=== PATIENT | male | born 1950 | race Caucasian/White ===

== ENCOUNTER 2019-05-21 10:44 | Emergency (ER) | payer MEDICARE, SELFPAY ==
--- NOTE | ~2019-05-21 | XR_ITS ---
EXAMINATION: XR humerus LT DATE: 05/21/2019 12:36 INDICATION: Left humerus pain. Fall. TECHNIQUE: 2 views of left humerus on 4 radiographs were obtained. COMPARISON: Left shoulder radiographs 03/29/2004 FINDINGS: Bone alignment is normal. No fracture. There is severe osteoarthritis of the acromioclavicu lar joint. Glenohumeral joint is not well profiled. There is an enthesophyte at medial humeral epicon dyle. IMPRESSION: 1. No fracture. 2. Severe osteoarthritis of acromioclavicular joint. Reviewed, dictated and finalized at location A. CRAB SHEDDER
--- NOTE | ~2019-05-21 | CT_ITS ---
EXAMINATION: CT brain wo con DATE: 05/21/2019 13:26 INDICATION: Syncope. Head injury. TECHNIQUE: Computed tomography (CT) of the head was performed without intravenous contrast. The mA wa s adjusted according to patient size. Iterative reconstruction technique was employed. The dose-lengt h product was 756.67 mGy-cm. COMPARISON: Head CT 11/30/2018 FINDINGS: There are scattered areas of low attenuation in the cerebral white matter. There is no intr acranial hemorrhage, acute infarction, or abnormal intracranial mass lesion. The ventricles are huber l in size. The orbits are normal. There is mild mucosal thickening in the ethmoid sinuses. The mastoi d air cells are normal. IMPRESSION: 1. Unchanged mild nonspecific cerebral white matter disease, which likely represents chronic small ve ssel ischemic disease. Reviewed, dictated and finalized at location A. H PASTOR IMPRESSION: 1. Unchanged mild nonspecific cerebral white matter disease, which likely repre sents chronic small vessel ischemic disease.
[2019-05-21 10:45] VITALS: BP 136/79; PULSE 61; RESP 16; TEMP 36.6; O2SAT 96
--- NOTE | 2019-05-21 12:10 | ED.GENADULT ---
HPI - General Adult General Chief complaint: Fall <GEORGE Weber Last Filed: 05/21/19 15:29> Stated complaint: ?syncope <GEORGE Weber Last Filed: 05/21/19 15:29> Time Seen by Provider: 05/21/19 12:09 <GEORGE Weber Last Filed: 05/21/19 15:29> Source: patient and family <GEORGE Weber Last Filed: 05/21/19 15:29> Mode of arrival: EMS <GEORGE Weber Last Filed: 05/21/19 15:29> Limitations: no limitations <GEORGE Weber Last Filed: 05/21/19 15:29> History of Present Illness HPI narrative: Patient is here after a fall at home. He was in his bathroom and is sure that his foot got stuck and he went down on his bottom. He did sustain a small abrasion to his left lower leg. He is complaining of left upper arm pain, and it is unsure if he hit his head. Patient is on blood thinners. He is alert and appropriate, not complaining of a headache at this time. He has frequent falls at home and walks with a walker. He complains of right knee pain, which is chronic and he wears a brace at all times. He states the pain is slightly more than usual. <GEORGE Weber Last Filed: 05/21/19 15:29> Onset (ago): hour(s) <GEORGE Weber Last Filed: 05/21/19 15:29> Radiation: extremity (left upper) <GEORGE Weber Last Filed: 05/21/19 15:29> Severity: mild <GEORGE Weber Filed: 05/21/19 15:29> Quality: aching <GEORGE Weber Last Filed: 05/21/19 15:29> Treatments prior to arrival: none <GEORGE Weber Last Filed: 05/21/19 15:29> Related Data Home medications: Home Medications Medication Instructions Recorded Confirmed cholecalciferol (vitamin D3) 2,000 2,000 unit PO DAILY 03/09/19 03/15/19 unit tablet nystatin 100,000 unit/gram topical 1 applic TOPICAL BID 03/09/19 03/15/19 powder tamsulosin 0.4 mg capsule 0.4 mg PO DAILY 03/09/19 03/15/19 warfarin 10 mg tablet 5 mg PO QMWF 03/09/19 allopurinol 05/21/19 donepezil mg 05/21/19 finasteride mg 05/21/19 flecainide 05/21/19 furosemide 05/21/19 metoprolol tartrate 05/21/19 ranitidine HCl 05/21/19 <Vicki Nixon PA-C - Last Filed: 05/21/19 15:29> Allergies/adverse reactions: Allergies Allergy/AdvReac Type Severity Reaction Status Date / Time ampicillin Allergy Unknown Hives Verified 05/21/19 11:22 iodine Allergy Unknown Hives Verified 05/21/19 11:22 Penicillins Allergy Unknown Hives Verified 05/21/19 11:22 Contrast Media Allergy Severe hives Uncoded 05/21/19 11:22 <Vicki Nixon PA-C - Last Filed: 05/21/19 15:29> Review of Systems Review of Systems: All systems reviewed & are unremarkable except as noted in HPI and below <Vicki Nixon PA-C - Last Filed: 05/21/19 15:29> [facility] Past Medical History Medical History: Medical History Afib Anemia Anxiety Arthritis Bilateral ankle fractures BPH (benign prostatic hyperplasia) Dementia Depression DVT (deep venous thrombosis) Gall bladder disease GERD (gastroesophageal reflux disease) Gout HTN (hypertension) IBS (irritable bowel syndrome) Kidney stones Osteomyelitis Parkinsons disease Pericarditis Peripheral neuropathy Pneumonia Pulmonary embolism PVD (peripheral vascular disease) Sleep apnea <Vicki Nixon PA-C - Last Filed: 05/21/19 15:29> Surgical History Surgical History: Surgical History H/O cardiac catheterization H/O umbilical hernia repair History of arthroscopic knee surgery History of ERCP History of left knee replacement History of nephrectomy, left Hx of appendectomy Hx of cholecystectomy <Vicki Nixon PA-C - Last Filed: 05/21/19 15:29> Family History Family History: Family History Mother Deceas
[2019-05-21 15:19] VITALS: BP 160/98; PULSE 67; O2SAT 97
== END 2019-05-21 16:28 | disposition home or self-care (01) ==
PROVIDERS: Emergency Provider Emergency Medicine; PCP Internal Medicine
DX: M79.622 Pain in left upper arm (principal); S80.812A Abrasion, left lower leg, initial encounter; I48.91 Unspecified atrial fibrillation; Z79.01 Long term (current) use of anticoagulants; N40.0 Benign prostatic hyperplasia without lower urinary tract symptoms; F03.90 Unspecified dementia, unspecified severity, without behavioral disturbance, psychotic disturbance, mood disturbance, and anxiety; Z86.718 Personal history of other venous thrombosis and embolism; K21.9 Gastro-esophageal reflux disease without esophagitis; M10.9 Gout, unspecified; I10 Essential (primary) hypertension; K58.9 Irritable bowel syndrome, unspecified; Z87.442 Personal history of urinary calculi; G20 Parkinson's disease; G62.9 Polyneuropathy, unspecified; Z86.711 Personal history of pulmonary embolism; G47.30 Sleep apnea, unspecified; I73.9 Peripheral vascular disease, unspecified; Z96.652 Presence of left artificial knee joint; Z90.5 Acquired absence of kidney; M19.012 Primary osteoarthritis, left shoulder; R90.82 White matter disease, unspecified
CPT/HCPCS: 70450; 73060; 99284

== ENCOUNTER 2019-09-28 10:01 | Inpatient (IN) | payer MEDICARE, SELFPAY ==
[2019-09-28] VITALS (24 sets, daily range): BP systolic 106–148; BP diastolic 69–81; PULSE 57–84; RESP 16–30; TEMP 36.2–36.7; O2SAT 90–94; BMI 42.3
--- NOTE | ~2019-09-28 | XR_ITS ---
XR chest 2V 09/28/2019 10:34 Indication: Foot ulcer Procedure: 2 views of the chest Comparison: Comparison to multiple prior studies sequentially, with oldest reviewed study dated 10/14. Findings: Elevated right diaphragm. There is right middle lobe atelectasis. No focal pneumonia, edema , pleural effusion or pneumothorax. Cardiomegaly. Impression: 1: Right middle lobe atelectasis. 2: Cardiomegaly. Reviewed, dictated and finalized at location A. Impression: 1: Right middle lobe atelectasis. 2: Cardiomegaly.
--- NOTE | ~2019-09-28 | US_ITS ---
EXAMINATION:US venous doppler LE BI INDICATION:Right calf swelling and redness. History of DVT. TECHNIQUE: Multiple grayscale, color flow and Doppler images of the lower extremity deep venous syste ms were obtained and reviewed. COMPARISON:No prior studies for comparison. FINDINGS: The common femoral, superficial femoral and popliteal veins demonstrate normal respiratory variation, augmentation and compressibility. Color flow is also seen within the posterior tibial, pe roneal, greater saphenous and profunda veins. The left gastrocnemius vein is not visualized. IMPRESSION: 1: No lower extremity deep venous thrombosis. Reviewed, dictated and finalized at location A.
--- NOTE | 2019-09-28 10:12 | ECG_ITS ---
Measurements Intervals [place] Rate: 59 P: -57 CO: 171 QRS: 51 QRSD: 116 T: 51 QT: 466 QTc: 464 Interpretive Statements SINUS BRADYCARDIA INTRAVENTRICULAR CONDUCTION DELAY CONSDIER HIGH LATERAL INFARCT, AGE INDETERMINATE BORDERLINE T WAVE ABNORMALITY- ANTERIOR LEADS BASELINE ARTIFACT- I, III, AVR, AVL ABNORMAL ECG Electronically Signed On 09-28-2019 11:14:05 CDT by Byron Bhatia D.O.
[2019-09-28 10:35] LABS: Basophils Percent Auto 0.6 % (0.2-1.2); Eosinophils Absolute Auto 0.1 K/mm3 (0-0.3); Eosinophils Percent Auto 1.7 % (0-4.4); Hematocrit 44.6 % (42.0-52.0); Hemoglobin 14.1 g/dL (14.0-18.0); Immature Granulocyte Absolute 0.02 K/mm3 (0.00-0.031); Immature Granulocyte Percent A 0.3 % (0-0.5); Lymphocytes Absolute Auto 0.76 K/mm3 (0.9-3.2); Lymphocytes Percent Auto 10.6 % (18.3-44.2); Mean Corpuscular HGB Conc 31.6 g/dl (32-36); Mean Corpuscular Volume 88.5 fl (80-100); Mean Platelet Volume 9.5 fl (7.4-10.4); Monocytes Absolute Auto 0.4 K/mm3 (0.1-0.6); Neutrophils Absolute Auto 5.8 K/mm3 (1.3-6.7); Neutrophils Percent Auto 80.8 % (45.5-73.1); Platelet Count Result 226 k/mm3 (150-375); Red Blood Count 5.04 M/mm3 (4.6-6.20); Red Cell Distribution Width 14.6 % (11.5-14.5); White Blood Count 7.2 K/mm3 (4.5-10.0)
[2019-09-28 10:47] LABS: Lactic Acid Reflex 1.6 mmol/L (0.7-2.1)
[2019-09-28 10:49] LABS: Alanine Aminotransferase 8 U/L (4-50); Albumin Level 4.2 g/dL (3.5-5.1); Alkaline Phosphatase 150 U/L (38-126); Aspartate Amino Transferase 19 U/L (17-59); Bilirubin,Total 0.7 mg/dL (0.2-1.3); Blood Urea Nitrogen 17 mg/dL (9-20); Carbon Dioxide 31 mmol/L (22-30); Chloride 97 mmol/L (98-107); Estimated CRCL calculation 134 ml/min; Estimated Glomerular Filt Rate > 60; Glucose 137 mg/dL (75-110); Potassium 3.9 mmol/L (3.4-5.0); Sodium 135 mmol/L (137-145)
[2019-09-28 10:50] LABS: INR 3.5; Prothrombin Time 34.8 Seconds (11.1-14.7)
[2019-09-28 10:52] LABS: Partial Thromboplastin Time 58.8 SECONDS (22.3-36.8)
--- NOTE | 2019-09-28 11:24 | PC.NURSE ---
Pt states attempted to void but unable. Refuses catherization.
--- NOTE | 2019-09-28 11:26 | ED.GENADULT ---
HPI - General Adult General Chief complaint: Wound/Laceration Stated complaint: SORE ON ANKLE Time Seen by Provider: 09/28/19 11:16 History of Present Illness HPI narrative: Patient presents via EMS with his for a sore on his right lower leg. He found it this morning. It is bleeding. He has no pain due to his neuropathy. He is overweight and has not been out of his chair walking since May. He urinates in the urinal. He wears a pull-apart diaper that his changes for BMs. He is on Coumadin for A. fib. He also has sacral bedsores, and has not been to the wound clinic due to COVID, so that they are as bad as ever. They do not bother him. His appetite is good, bowels move today. His said he has some memory problems. Related Data Home Medications Medication Instructions Recorded Confirmed cholecalciferol (vitamin D3) 50 1,000 unit PO DAILY 03/09/19 03/15/19 mcg (2,000 unit) tablet tamsulosin 0.4 mg capsule 0.4 mg PO DAILY 03/09/19 03/15/19 warfarin 10 mg tablet 10 mg PO 03/09/19 flecainide 150 mg BID 05/21/19 acetaminophen 500 mg PO Q6H PRN 09/28/19 09/28/19 lisinopril 10 mg PO DAILY 09/28/19 metoprolol tartrate 12.5 PO TID 09/28/19 Allergies Allergy/AdvReac Type Severity Reaction Status Date / Time ampicillin Allergy Unknown Hives Verified 09/28/19 11:25 iodine Allergy Unknown Hives Verified 09/28/19 11:25 Penicillins Allergy Unknown Hives Verified 09/28/19 11:25 Contrast Media Allergy Severe hives Uncoded 09/28/19 11:25 Review of Systems Review of Systems: Narrative: CONSTITUTIONAL: Denies fever, chills, or sweats. EYES: Denies visual changes, redness, or discharge. ENT: Denies rhinorrhea, congestion, sore throat, or otalgia. CARDIOVASCULAR: Denies chest pain, palpitations, or edema. RESPIRATORY: Denies cough or dyspnea. GASTROINTESTINAL: Denies abdominal pain, nausea, vomiting, or diarrhea. GENITOURINARY: Denies dysuria or hematuria. SKIN: Denies rash or itching. MUSCULOSKELETAL: Denies back pain, joint pain, or myalgia. NEUROLOGIC: Denies headache, numbness, or weakness. PSYCHIATRIC: Denies anxiety or depression. [facility] Past Medical History Medical History Afib Anemia Anxiety Arthritis Bilateral ankle fractures BPH (benign prostatic hyperplasia) Dementia Depression DVT (deep venous thrombosis) Gall bladder disease GERD (gastroesophageal reflux disease) Gout HTN (hypertension) IBS (irritable bowel syndrome) Kidney stones Osteomyelitis Parkinsons disease Pericarditis Peripheral neuropathy Pneumonia Pulmonary embolism PVD (peripheral vascular disease) Sleep apnea Surgical History Surgical History H/O cardiac catheterization H/O umbilical hernia repair History of arthroscopic knee surgery History of ERCP History of left knee replacement History of nephrectomy, left Hx of appendectomy Hx of cholecystectomy Family History Family History Mother Hypertension, Onset Age: 79 Family history of diabetes mellitus in first degree relative, Onset Age: 79 Family history of arthritis, Onset Age: 79 Family history of congestive heart failure, Onset Age: 79 Sibling Hypertension Carcinoma of colon Father Hypertension, Onset Age: 80 Family history of Parkinson's disease Family history of Alzheimer's disease, Onset Age: 80 Family history of diabetes mellitus in first degree relative, Onset Age: 80 Carcinoma of colon Social History Social History Smoking status: Never smoker Alcohol intake: never Substance use: never Gender identity (if verbalized by the patient): Male Exam Narrative: Exam Narrative: GENERAL: Well-appearing, well-nourished, and in no acute distress. Unkempt hair, morbid obesity, thickened skin on his very edematous leg
--- NOTE | 2019-09-28 12:19 | PM.CNGS ---
Assessment and Plan Assessment and plan (1) Sacral decubitus ulcer: Code(s): L89.159 - Pressure ulcer of sacral region, unspecified stage Status: Acute Assessment and Plan: will evaluate further c wound care team, further recs to follow (2) Ulcer of right calf: Code(s): L97.219 - Non-pressure chronic ulcer of right calf with unspecified severity Status: Acute Assessment and Plan: seems to be venous stasis ulcer, enzymatic debridement for now, likely will need compression, poss unna boot, will get wound care consult (3) Chronic venous stasis dermatitis of both lower extremities: Code(s): I87.2 - Venous insufficiency (chronic) (peripheral) Status: Acute Assessment and Plan: needs compression History of Present Illness Consult details Consult date: 09/28/19 Reason for consult: wound care Narrative: Pt is a 69 y/o M c multiple med issues including severe obesity and neuropathy leading him to be largely immobile. Pt reports he has been getting around in a wheelchair pretty much exclusively since May. Pt has known sacral ulcers that he was regularly being treated for at [facility]. Pt reports because of pandemic he has not followed up on his regular appointments. Pt reports his has been taking care of his wounds and they do not seem to be worsening. Pt here for new ulcer on R calf over last few wks, pt reports some mild bleeding from area. Pt denies any f/c, reports good appetite. Review of Systems Constitutional: Constitutional: Denies chills, Reports fatigue, Reports lethargy and Reports weakness Eyes: Eyes: Reports no additional eye complaints ENT: Reports Normal hearing present Cardiovascular: Cardiovascular: Denies chest pain and Denies palpitations Respiratory: Respiratory: Denies cough, Denies dyspnea and Reports dyspnea on exertion Gastrointestinal: Gastrointestinal: Denies abdominal pain, Denies bloating, Denies constipation, Denies diarrhea, Denies nausea and Denies vomiting Genitourinary: Genitourinary: Denies dysuria Musculoskeletal: Musculoskeletal: Reports joint swelling Integumentary/Breasts: Skin/Breast: Reports wounds Neurologic: Denies confusion, Denies headache(s) and Reports numbness Psychiatric: Psychiatric: Reports no additional psychiatric complaints [facility] Past Medical History Medical History Afib Anemia Anxiety Arthritis Bilateral ankle fractures BPH (benign prostatic hyperplasia) Dementia Depression DVT (deep venous thrombosis) Gall bladder disease GERD (gastroesophageal reflux disease) Gout HTN (hypertension) IBS (irritable bowel syndrome) Kidney stones Osteomyelitis Parkinsons disease Pericarditis Peripheral neuropathy Pneumonia Pulmonary embolism PVD (peripheral vascular disease) Sleep apnea Surgical History Surgical History H/O cardiac catheterization H/O umbilical hernia repair History of arthroscopic knee surgery History of ERCP History of left knee replacement History of nephrectomy, left Hx of appendectomy Hx of cholecystectomy Family History Family History Mother Hypertension, Onset Age: 79 Family history of diabetes mellitus in first degree relative, Onset Age: 79 Family history of arthritis, Onset Age: 79 Family history of congestive heart failure, Onset Age: 79 Sibling Hypertension Carcinoma of colon Father Hypertension, Onset Age: 80 Family history of Parkinson's disease Family history of Alzheimer's disease, Onset Age: 80 Family history of diabetes mellitus in first degree relative, Onset Age: 80 Carcinoma of colon Social History Social History Smoking status: Never smoker Alcohol intake: never Substance use: never Gender identity (if ve
[2019-09-28 14:51] LABS: Add Urine Microscopic? YES; Appearance Urine Cloudy (Clear); Bacteria Urine 4+ /hpf; Bilirubin Urine Negative (Negative); Blood Urine 1+ (Negative); Color Urine Yellow (Yellow); Glucose Urine UA Negative (Negative); Ketones Urine Negative (Negative); Leukocyte Esterase Ur 3+ LEU/UL (Negative); Mucus Urine Few /lpf; Nitrate Urine Positive (Negative); Protein Urine Negative (Negative); RBC Urine 21-50 /hpf (0-2); Specific Grav Ur 1.015 (1.001-1.035); Squamous Epithelial Cell Urine Rare /hpf (Few); Urobilinogen Urine Negative mg/dL (<2.0); WBC Clumps Urine Present /HPF; WBC Urine >75 /hpf
--- NOTE | 2019-09-28 15:00 | PC.NURSE ---
Assumed care of pt, pt is alert and upright on stretcher, pt on tele monitor, discussed POC.
--- NOTE | 2019-09-28 15:50 | ADMGEN ---
This patient, Jorge Zamora, was admitted to Medical Room 246-01. Patient/family oriented to hospital policies and general routines including ID bracelet, bed and alarms, visiting hours, pain management, procedures, bathroom and other care routines, personal items, smoking policy, room service/diet, and visiting hours. Valuables list has been completed. Information on how to activate the Rapid Response Team has been discussed. Patient/Family are encouraged to report perceived risks to care and to ask questions if they do not understand what they are told or what they should do.
--- NOTE | 2019-09-28 18:28 | PM.IMHP ---
H&P: HPI History of Present Illness Chief complaint: morbid obesity/decubitus immobile Narrative: Jorge Zamora is a 69 year old male who has chronic venous stasis. He has been to the wound clinic here before as well as on [facility]. The patient has had a sore on his right lower leg on the calf side. His found at this morning. The patient also has decubitus ulcers on his sacral area. The patient essentially is in the recliner at all times and wears a depends. The patient will use a urinal but will have a bowel movement in his depends. The patient has not been back to wound clinic since they COVID epidemic. The patient has a swollen right leg that is very painful to move. His white count is normal. And surgery has been consulted. Chest x-ray was read as right middle lobe atelectasis. And cardiomegaly. Patient is in atrial fibrillation. His INR was also . So his Coumadin is being held. Patient was found to have UTI. Date of service 09/28/2019 Review of Systems Review of Systems: All systems reviewed & are unremarkable except as noted in HPI and below Constitutional: Constitutional: Reports as per HPI and Reports no additional constitutional complaints Eyes: Eyes: Reports as per HPI and Reports no additional eye complaints ENT: Reports system reviewed and no additional complaints, except as documented and Reports Normal hearing present Cardiovascular: Cardiovascular: Reports no additional cardiovascular complaints Respiratory: Respiratory: Reports no additional respiratory complaints and Reports no additional respiratory complaints Gastrointestinal: Gastrointestinal: Reports as per HPI and Reports no additional gastrointestinal complaints Musculoskeletal: Musculoskeletal: Reports no additional musculoskeletal complaints Integumentary/Breasts: Skin/Breast: Reports system reviewed and no additional complaints, except as docu and Reports as per HPI Neurologic: Reports system reviewed and no additional complaints, except as documented, Reports as per HPI and Reports Normal hearing present Psychiatric: Psychiatric: Reports no additional psychiatric complaints and Reports as per HPI Endocrine: Endocrine: Reports no additional endocrine complaints Hematologic/Lymphatic: Hematologic/Lymphatic: Reports no additional hematologic/lymphatic complaints Allergic/Immunologic: Allergic/Immunologic: Reports no additional allergic/immunologic complaints [facility] Past Medical History Medical History (Updated 09/28/19 @ 19:02 by Chantelle Posey NP) Afib Anemia Anxiety Arthritis Bilateral ankle fractures Borderline diabetes BPH (benign prostatic hyperplasia) Dementia Depression DVT (deep venous thrombosis) Gall bladder disease GERD (gastroesophageal reflux disease) Gout History of pericarditis HTN (hypertension) IBS (irritable bowel syndrome) Kidney stones Obesity BMI 42 Osteomyelitis Parkinsons disease Pericarditis Peripheral neuropathy Pneumonia Pulmonary embolism PVD (peripheral vascular disease) Sleep apnea Surgical History Surgical History (Updated 09/28/19 @ 18:46 by Chantelle Posey NP) H/O cardiac catheterization H/O inguinal hernia repair H/O umbilical hernia repair History of arthroscopic knee surgery History of ERCP History of left knee replacement History of nephrectomy, left Hx of appendectomy Hx of cholecystectomy Family History Family History Mother Hypertension, Onset Age: 79 Family history of diabetes mellitus in first degree relative, Onset Age: 79 Family history of arthritis, Onset Age: 79 Family history of congestive heart failure, Onset Age: 79 Sibling Hypertension Carcinoma of colon Father Hypertension, Onset Age: 80 Family history of Parkinson's disease Family history of Alzheimer's disease, Onset Age: 80 Family history of diabetes mellitus in first degree relative, Onset Age: 80 Carcinoma of
[2019-09-28] MEDS: TAMSULOSIN HCL 0.4 MG CAPSULE PO (19:15)
[2019-09-28] MEDS: METOPROLOL TARTRATE 12.5 MG TABLET PO (19:15)
[2019-09-28] MEDS: lisinopriL 10 MG TABLET PO (19:15)
[2019-09-28 20:14] LABS: INR 3.8
[2019-09-28] MEDS: FLECAINIDE ACETATE 50 MG TABLET PO (20:40)
[2019-09-28] MEDS: FLECAINIDE ACETATE 100 MG TABLET PO (20:42)
[2019-09-28] MEDS: ACETAMINOPHEN 325 MG TABLET 650 MG PO (20:46)
[2019-09-29] VITALS (7 sets, daily range): BP systolic 112–120; BP diastolic 65–70; PULSE 62–66; RESP 18–20; TEMP 36.4–37.3; O2SAT 92–98; BMI 10.0
[2019-09-29 05:59] LABS: Alanine Aminotransferase 7 U/L (4-50); Albumin Level 3.7 g/dL (3.5-5.1); Alkaline Phosphatase 118 U/L (38-126); Aspartate Amino Transferase 19 U/L (17-59); Bilirubin,Total 0.7 mg/dL (0.2-1.3); Blood Urea Nitrogen 19 mg/dL (9-20); CRP 3.8 mg/dL (<1.0); Calcium 8.5 mg/dL (8.4-10.2); Carbon Dioxide 29 mmol/L (22-30); Chloride 97 mmol/L (98-107); Estimated CRCL calculation 135 ml/min; Estimated Glomerular Filt Rate > 60; Glucose 122 mg/dL (75-110); Potassium 3.8 mmol/L (3.4-5.0); Sodium 133 mmol/L (137-145)
[2019-09-29] MEDS: ACETAMINOPHEN 325 MG TABLET 650 MG PO ×2 (06:28→23:17)
[2019-09-29] MEDS: METOPROLOL TARTRATE 25 MG TABLET PO (08:02)
[2019-09-29] MEDS: FUROSEMIDE 40 MG TABLET PO (08:02)
[2019-09-29] MEDS: CHOLECALCIFEROL 1,000 UNIT TABLET 1000 UNITS PO (08:02)
[2019-09-29] MEDS: allopurinoL 300 MG TABLET PO (08:02)
[2019-09-29] MEDS: FLECAINIDE ACETATE 100 MG TABLET PO ×2 (10:02→22:11)
[2019-09-29] MEDS: FLECAINIDE ACETATE 50 MG TABLET PO ×2 (10:02→22:11)
[2019-09-29] MEDS: TOLNAFTATE 1% POWDER 45 GM BTL 1 APPLIC TOPICAL ×2 (10:15→22:14)
[2019-09-29] MEDS: SILVERGEL (ELTA) 45 ML 1 APPLIC TOPICAL (10:15)
--- NOTE | 2019-09-29 11:06 | PM.PNGS ---
Progress Note: A&P Assessment and Plan (1) Decubitus skin ulcer: Qualifiers: Pressure injury location: unspecified location Pressure injury stage: unspecified pressure injury stage Qualified Code(s): L89.90 - Pressure ulcer of unspecified site, unspecified stage Code(s): L89.90 - Pressure ulcer of unspecified site, unspecified stage Status: Acute Assessment and Plan: cont pressure relieving techniques, wound care as necessary, no surgical intervention at this point required (2) Ulcer of right calf: Code(s): L97.219 - Non-pressure chronic ulcer of right calf with unspecified severity Status: Acute Assessment and Plan: likely venous stasis, cont compression/elevation, local wound care, no surgical intervention required at this point (3) Chronic venous stasis dermatitis of both lower extremities: Code(s): I87.2 - Venous insufficiency (chronic) (peripheral) Status: Acute Assessment and Plan: see above (4) Body mass index (BMI) of 50-59.9 in adult: Onset Date: 07/02/15 Code(s): Z68.43 - Body mass index (BMI) 50.0-59.9, adult Status: Acute Assessment and Plan: pt severely debilitated, may benefit from ECF at dc Subjective Subjective Date/Time Seen: 09/29/19 11:06 Pt denies any complaints today. Pt denies any f/c, reports no pain. Review of Systems Constitutional: Constitutional: Denies chills, Reports fatigue, Reports lethargy and Reports weakness Cardiovascular: Cardiovascular: Denies chest pain Respiratory: Respiratory: Denies dyspnea Gastrointestinal: Gastrointestinal: Denies abdominal pain, Denies constipation, Denies diarrhea, Denies nausea and Denies vomiting Musculoskeletal: Musculoskeletal: Reports joint swelling Integumentary/Breasts: Skin/Breast: Reports wounds Exam Const: General: no acute distress Resp: Effort & Inspection: normal respiratory effort Auscultation: diminished lung sounds Cardio: Rate: regular rate Rhythm: regular rhythm GI: Other: SNTND Skin: Other: R calf venous stasis ulcer - no s/s active infection, minimal serous drainage stage 1 sacral ulcer - no s/s active infection, no drainage Objective Data Vital Signs Vital Signs: Vital Signs - 24 hr 09/28/19 11:16 09/28/19 11:31 09/28/19 11:45 Temperature Pulse Rate 60 61 61 Respiratory Rate 21 H 22 H 23 H Blood Pressure 123/77 Pulse Oximetry 91 92 09/28/19 12:01 09/28/19 12:15 09/28/19 12:46 Temperature Pulse Rate 62 57 L 59 L Respiratory Rate 16 19 21 H Blood Pressure 121/69 Pulse Oximetry 93 94 93 09/28/19 13:03 09/28/19 13:15 09/28/19 13:57 Temperature Pulse Rate 57 L 57 L 57 L Respiratory Rate 21 H 19 21 H Blood Pressure Pulse Oximetry 94 92 09/28/19 14:00 09/28/19 14:01 09/28/19 14:15 Temperature Pulse Rate 58 L 59 L 58 L Respiratory Rate 24 H 30 H 21 H Blood Pressure 132/81 Pulse Oximetry 09/28/19 14:30 09/28/19 14:45 09/28/19 15:35 Temperature Pulse Rate 59 L 59 L 57 L Respiratory Rate 25 H 19 19 Blood Pressure 125/74 Pulse Oximetry 93 93 09/28/19 15:55 09/28/19 19:15 09/28/19 20:40 Temperature 36.2 C L Pulse Rate 70 70 84 Respiratory Rate 18 Blood Pressure 148/77 H Pulse Oximetry 92 09/28/19 20:42 09/28/19 22:00 09/29/19 06:00 Temperature 36.7 C 36.5 C Pulse Rate 84 73 66 Respiratory Rate 18 20 Blood Pressure 134/76 112/70 Pulse Oximetry 94 92 09/29/19 08:02 09/29/19 10:02 Temperature Pulse Rate 66 66 Respiratory Rate Blood Pressure Pulse Oximetry Intake/Output Intake/Output: Intake & Output 09/26/19 09/27/19 09/28/19 09/29/19 23:59 23:59 23:59 23:59 Intake Total 650 1240 Output Total 250 150 Balance 400 1090 Meds/Results Medications: Active Medications Generic Name Dose Route Start Last Admin Trade Name Sidq PRN Reason Stop Dose Admin Acetaminophen 650 mg 09/28/19 14:40 09/29/19 06:28
[2019-09-29 17:19] LABS: INR 3.2; Prothrombin Time 32.2 Seconds (11.1-14.7)
--- NOTE | 2019-09-29 17:19 | PM.IMPN ---
Progress Note: A&P Assessment and Plan (1) Ulcer of right calf: Code(s): L97.219 - Non-pressure chronic ulcer of right calf with unspecified severity Status: Acute Assessment and Plan: Patient has approximately 2.5 cm round venous stasis ulcer with regular borders with scant serous drainage. There is no pus, malodor, erythema, or streaking. Patient is afebrile and without leukocytosis. CRP is 3.8. General surgery has been consulted and does not recommend surgical intervention at this time. Consult is appreciated. Wound care has been consulted and recommends silver gel and Mepilex dressing. Consult is appreciated. Discontinue IV vancomycin as the area does not appear to be actively infected Blood cultures are pending (2) UTI (urinary tract infection): Code(s): N39.0 - Urinary tract infection, site not specified Status: Acute Assessment and Plan: Initial urine culture reveals Gram-negative bacilli. Patient endorses dysuria. Begin Zosyn for empiric coverage given patients penicillin allergy. Await results of final culture and sensitivity report. (3) AF (paroxysmal atrial fibrillation): Code(s): I48.0 - Paroxysmal atrial fibrillation Status: Acute Assessment and Plan: Rate is well controlled at this time. INR is elevated at 3.8. Patient denies active bleeding. Continue flecainide and metoprolol Hold Coumadin given supratherapeutic INR. Resume when clinically appropriate. Repeat PT/INR daily. INR will be monitored closely noting risk for increased anticoagulant effect with antibiotic therapy. (4) HTN (hypertension): Code(s): I10 - Essential (primary) hypertension Status: Chronic Assessment and Plan: Blood pressures were reviewed and are stable. BP is 112/70 today. Continue metoprolol, lisinopril, and Lasix (5) Maceration of skin: Code(s): L98.8 - Other specified disorders of the skin and subcutaneous tissue Status: Acute Assessment and Plan: Patient has maceration to buttocks and skin folds. Continue antifungal powder per wound care recommendations. Subjective Date/time seen: 09/29/19 17:19 Interval history: Date of service: 09/29/2019 He reports he is feeling well today. He complains of pain in his legs which is chronic in nature. He also has knee pain. He also has a bit of abdominal discomfort following eating. He endorsed dysuria today but denied hematuria, urgency, or frequency. He reports a sacral wound that causes discomfort for him when lying down. He denies fever, chills, nausea, vomiting, dizziness, lightheadedness, weakness, shortness of breath, cough, chest pain, palpitations, bleeding, or bruising. He is eating well. Review of Systems Review of Systems: Narrative: A 12 point review of systems was reviewed with pertinent positives and negatives as per HPI. Exam Narrative: Exam Narrative: Mr. Zamora is examined alone today. He is a morbidly obese, chronically ill-appearing 69-year-old male who is lying supine in bed. He appears comfortable and is in no acute respiratory distress. HR 66, BP 112/70, RR 20, T 97.7?, 92% on room air Neuro: awake, alert and oriented x4, speech clear, no focal neuro deficits noted HEENMT: normocephalic, atraumatic, EOMI, sclerae anicteric, moist oral mucosa, tongue midline Neck: supple, no lymphadenopathy Respiratory: clear to auscultation bilaterally, normal respiratory effort without accessory muscle use Cardio: regular rate, regular rhythm, normal S1 and S2 Abdomen: normal to inspection, obese, normoactive bowel sounds, soft, nontender, no rigidity or guarding Extremities: BLE with 3+ pitting edema R>L, chronic brown discoloration, tenderness to to palpation, dorsal pedis pulses palpable bilaterally Skin: Maceration in pannus folds, approximately 2.5 cm round venous stasis ulcer with regular border on posterolateral right calf with scant s
[2019-09-29] MEDS: lisinopriL 10 MG TABLET PO (17:56)
[2019-09-29] MEDS: METOPROLOL TARTRATE 12.5 MG TABLET PO (17:56)
[2019-09-29] MEDS: TAMSULOSIN HCL 0.4 MG CAPSULE PO (17:56)
[2019-09-29] MEDS: SACCHAROMYCES BOULARDII 250 MG CAPSULE PO (22:12)
[2019-09-30 06:00] VITALS: BP 116/65; PULSE 65; RESP 16; TEMP 36.8; O2SAT 95
[2019-09-30 06:05] LABS: Basophils Percent Auto 0.4 % (0.2-1.2); Eosinophils Absolute Auto 0.2 K/mm3 (0-0.3); Eosinophils Percent Auto 4.2 % (0-4.4); Hematocrit 38.5 % (42.0-52.0); Hemoglobin 12.4 g/dL (14.0-18.0); Immature Granulocyte Absolute 0.02 K/mm3 (0.00-0.031); Immature Granulocyte Percent A 0.4 % (0-0.5); Lymphocytes Absolute Auto 0.91 K/mm3 (0.9-3.2); Mean Corpuscular HGB Conc 32.2 g/dl (32-36); Mean Corpuscular Volume 86.9 fl (80-100); Mean Platelet Volume 9.3 fl (7.4-10.4); Monocytes Absolute Auto 0.5 K/mm3 (0.1-0.6); Monocytes Percent Auto 8.1 % (2.6-8.5); Neutrophils Absolute Auto 4.1 K/mm3 (1.3-6.7); Neutrophils Percent Auto 70.9 % (45.5-73.1); Platelet Count Result 195 k/mm3 (150-375); Red Blood Count 4.43 M/mm3 (4.6-6.20); Red Cell Distribution Width 14.5 % (11.5-14.5); White Blood Count 5.7 K/mm3 (4.5-10.0)
[2019-09-30 06:18] LABS: Alanine Aminotransferase 7 U/L (4-50); Albumin Level 3.6 g/dL (3.5-5.1); Alkaline Phosphatase 116 U/L (38-126); Aspartate Amino Transferase 17 U/L (17-59); Bilirubin,Total 0.7 mg/dL (0.2-1.3); Blood Urea Nitrogen 19 mg/dL (9-20); Calcium 8.7 mg/dL (8.4-10.2); Carbon Dioxide 27 mmol/L (22-30); Chloride 98 mmol/L (98-107); Estimated CRCL calculation 121 ml/min; Estimated Glomerular Filt Rate > 60; Glucose 129 mg/dL (75-110); Potassium 3.4 mmol/L (3.4-5.0); Sodium 133 mmol/L (137-145)
[2019-09-30 06:32] LABS: INR 2.6; Prothrombin Time 27.2 Seconds (11.1-14.7)
[2019-09-30 06:46] LABS: Vancomycin Trough 8.2 ug/mL (10.0-20.0)
[2019-09-30 08:00] VITALS: PULSE 65; RESP 16; O2SAT 95
--- NOTE | 2019-09-30 08:45 | PM.PNGS ---
Progress Note: A&P Assessment and Plan (1) Ulcer of right calf: Code(s): L97.219 - Non-pressure chronic ulcer of right calf with unspecified severity Status: Acute Assessment and Plan: cont local wound care, no acute surgical intervention required (2) Sacral decubitus ulcer: Code(s): L89.159 - Pressure ulcer of sacral region, unspecified stage Status: Acute Assessment and Plan: cont local wound care, no acute surgical intervention required (3) Venous stasis: Code(s): I87.8 - Other specified disorders of veins Status: Acute Assessment and Plan: compression/elevation (4) Obesity: Code(s): E66.9 - Obesity, unspecified Status: Acute Assessment and Plan: debiliated, will need extensive dietary and PT/OT, would poss benefit from ECF placement Subjective Subjective Date/Time Seen: 09/30/19 08:45 feels ok, no c/o Review of Systems Constitutional: Constitutional: Denies chills, Reports fatigue, Reports lethargy and Reports weakness Cardiovascular: Cardiovascular: Denies chest pain and Reports leg edema Respiratory: Respiratory: Denies dyspnea Gastrointestinal: Gastrointestinal: Denies abdominal pain, Denies nausea and Denies vomiting Exam Const: General: no acute distress Resp: Auscultation: diminished lung sounds Cardio: Rate: regular rate Rhythm: regular rhythm GI: Other: SNTND Skin: Wounds: wounds noted Other: RLE wound drsg C/D/I, sacral wound drsg C/D/I Objective Data Vital Signs Vital Signs: Vital Signs - 24 hr 09/29/19 10:02 09/29/19 14:00 09/29/19 17:56 Temperature 37.3 C Pulse Rate 66 62 62 Respiratory Rate 18 Blood Pressure 120/66 Pulse Oximetry 98 09/29/19 22:00 09/29/19 22:11 09/30/19 06:00 Temperature 36.4 C 36.8 C Pulse Rate 66 66 65 Respiratory Rate 18 16 Blood Pressure 112/65 116/65 Pulse Oximetry 96 95 Intake/Output Intake/Output: Intake & Output 09/27/19 09/28/19 09/29/19 09/30/19 23:59 23:59 23:59 23:59 Intake Total 650 2470 500 Output Total 250 425 700 Balance 400 2045 -200 Meds/Results Medications: Active Medications Generic Name Dose Route Start Last Admin Trade Name Freq PRN Reason Stop Dose Admin Acetaminophen 650 mg 09/28/19 14:40 09/29/19 23:17 Tylenol Tablet PO 650 mg Q4H PRN Administration Mild Pain (1-3) or Fever Allopurinol 300 mg 09/29/19 09:00 09/29/19 08:02 Zyloprim PO 300 mg DAILY JAGUAR Administration Flecainide Acetate 100 mg 09/28/19 21:00 09/29/19 22:11 Tambocor PO 100 mg Q12HR JAGUAR Administration Flecainide Acetate 50 mg 09/28/19 21:00 09/29/19 22:11 Tambocor PO 50 mg Q12HR JAGUAR Administration Furosemide 40 mg 09/29/19 09:00 09/29/19 08:02 Lasix Tablet PO 40 mg DAILY JAGUAR Administration Ceftriaxone Sodium/Dextrose 1 gm in 50 mls @ 100 mls/hr 09/29/19 18:00 09/29/19 18:52 Rocephin 1 Gm/D5w 50 Ml IVPB Infused Q24H JAGUAR Infusion Lisinopril 10 mg 09/28/19 18:00 09/29/19 17:56 Prinivil PO 10 mg QPM JAGUAR Administration Metoprolol Tartrate 25 mg 09/29/19 09:00 09/29/19 08:02 Lopressor PO 25 mg QAM JAGUAR Administration Metoprolol Tartrate 12.5 mg 09/28/19 18:00 09/29/19 17:56 Lopressor PO 12.5 mg QPM JAGUAR Administration Miconazole Nitrate 1 applic 09/29/19 09:00 09/29/19 22:[address] TOPICAL 1 applic Q12HR JAGUAR Administration Ondansetron HCl 4 mg 09/28/19 14:40 Zofran Inj IV PUSH Q4H PRN Nausea Saccharomyces Boulardii 250 mg 09/29/19 21:00 09/29/19 22:12 Florastor PO 250 mg Q12HR JAGUAR Administration Silver Nitrate 1 applic 09/29/19 09:00 09/29/19 10:15 Silvergel TOPICAL 1 applic DAILY JAGUAR Administration Tamsulosin HCl 0.4 mg 09/28/19 18:00 09/29/19 17:56 Flomax PO 0.4 mg QPM JAGUAR Administration Tolnaftate 1 applic 09/29/19 09:00 09/29/19 22:14 Tolnaftate 1% Powder TOPICAL
[2019-09-30] MEDS: SACCHAROMYCES BOULARDII 250 MG CAPSULE PO (09:16)
[2019-09-30] MEDS: FLECAINIDE ACETATE 100 MG TABLET PO (09:17)
[2019-09-30] MEDS: FLECAINIDE ACETATE 50 MG TABLET PO (09:18)
[2019-09-30] MEDS: FUROSEMIDE 40 MG TABLET PO (09:18)
[2019-09-30] MEDS: METOPROLOL TARTRATE 25 MG TABLET PO (09:19)
[2019-09-30] MEDS: SILVERGEL (ELTA) 45 ML 1 APPLIC TOPICAL (09:19)
[2019-09-30] MEDS: TOLNAFTATE 1% POWDER 45 GM BTL 1 APPLIC TOPICAL (09:20)
[2019-09-30] MEDS: CHOLECALCIFEROL 1,000 UNIT TABLET 1000 UNITS PO (09:30)
[2019-09-30 14:00] VITALS: BP 108/66; PULSE 67; RESP 18; TEMP 37.2; O2SAT 94
--- NOTE | 2019-09-30 14:08 | PM.DS ---
DS: Admitting Diagnosis Admitting Diagnosis Admitting Diagnosis: Pressure ulcer of sacral region, unspecified stage DS: Discharge Diagnosis Discharge Diagnosis (1) Ulcer of right calf: Code(s): L97.219 - Non-pressure chronic ulcer of right calf with unspecified severity Status: Acute Assessment and Plan: Patient presented with approximately 2.5 cm round venous stasis ulcer to his right lower extremity with regular borders and scant serous drainage without pus, malodor, erythema, or streaking. Patient remained afebrile without leukocytosis. CRP was 3.8. He was initiated on vancomycin, however this was discontinued as the wound did not appear to be infected. Preliminary blood cultures revealed NGTD and final cultures will be monitored. Venous Doppler was negative for DVT. He was evaluated by both General surgery and wound care team. He was not felt to require surgical intervention. Wound care recommended he continue to apply silver gel with Mepilex dressing. He is established with wound care at [facility], and he should continue attending his appointments. (2) UTI (urinary tract infection): Code(s): N39.0 - Urinary tract infection, site not specified Status: Acute Assessment and Plan: Patient endorse dysuria. Urine culture demonstrated E coli. He was initiated on ceftriaxone for empiric coverage and was transition to oral cefdinir which he will take for 5 days to complete a 7 day course. (3) Abnormal INR: Code(s): R79.1 - Abnormal coagulation profile Status: Acute Assessment and Plan: Patient is on warfarin 10 mg for atrial fibrillation. At presentation, INR was elevated at 3.8, therefore warfarin was initially held. INR improved to 2.6, and warfarin was resumed at decreased dose of 9 mg. Risk for increased anticoagulant affect with antibiotic therapy was noted. Allopurinol was held until further follow-up by PCP given risk for increased anticoagulant effect. He will repeat an INR on 10/03/2019 with results to PCP. (4) AF (paroxysmal atrial fibrillation): Code(s): I48.0 - Paroxysmal atrial fibrillation Status: Acute Assessment and Plan: Rate remained well controlled on flecainide and metoprolol. See above for details on anticoagulation. (5) HTN (hypertension): Code(s): I10 - Essential (primary) hypertension Status: Chronic Assessment and Plan: Blood pressures were reviewed and remain stable on metoprolol, lisinopril, and Lasix. (6) Maceration of skin: Code(s): L98.8 - Other specified disorders of the skin and subcutaneous tissue Status: Acute Assessment and Plan: Patient has maceration to buttocks and skin folds which was evaluated by wound team. He will continue antifungal powder in skin fold and antifungal ointment to buttocks. DS: Summary Hospital Course Reason for hospitalization: Right lower extremity wound Hospital Course: Date of admission: 09/28/2019 Date of discharge: 09/30/2019 Jorge Zamora is a 69-year-old male with past medical history significant for morbid obesity, atrial fibrillation, hypertension, established with wound care, and multiple other comorbidities who presented to the emergency department on 09/28/2019 with complaints of a wound to his lower extremity. His had just found this sore on his right lower extremity. Patient reports he had not been to his wound clinic since the beginning of the COVID pandemic. Since that time he has essentially been bed-bound. He remains in his recliner at all times and his changes him in the recliner. He is nonambulatory. At presentation, WBC 7.2, INR 3.5, PTT 34.8, CRP 4.0, and lactic acid 1.6. He was admitted to the hospitalist service and seen in consultation by general surgery. No surgical intervention was required and wound care evaluated patient with recommendations as above. He was found to have a urinary t
== END 2019-09-30 18:49 | DRG 593 ==
LOC: ANHED 14:46 → ANH2MED 15:20
PROVIDERS: Nurse Practitioner; Physician Assistant; Admitting Provider Family Medicine; Emergency Provider Emergency Medicine; PCP Internal Medicine; Visit Provider Internal Medicine
DX: L97.219 Non-pressure chronic ulcer of right calf with unspecified severity (principal); N39.0 Urinary tract infection, site not specified; Z68.41 Body mass index [BMI] 40.0-44.9, adult; I87.2 Venous insufficiency (chronic) (peripheral); B96.20 Unspecified Escherichia coli [E. coli] as the cause of diseases classified elsewhere; N40.0 Benign prostatic hyperplasia without lower urinary tract symptoms; R79.1 Abnormal coagulation profile; I48.0 Paroxysmal atrial fibrillation; I10 Essential (primary) hypertension; L98.8 Other specified disorders of the skin and subcutaneous tissue; E66.01 Morbid (severe) obesity due to excess calories; D64.9 Anemia, unspecified; F41.9 Anxiety disorder, unspecified; M79.89 Other specified soft tissue disorders; M19.90 Unspecified osteoarthritis, unspecified site; D72.829 Elevated white blood cell count, unspecified; L89.159 Pressure ulcer of sacral region, unspecified stage; F32.9 Major depressive disorder, single episode, unspecified; K21.9 Gastro-esophageal reflux disease without esophagitis; K58.9 Irritable bowel syndrome, unspecified; G20 Parkinson's disease; G62.9 Polyneuropathy, unspecified; I87.8 Other specified disorders of veins; I73.9 Peripheral vascular disease, unspecified; G47.30 Sleep apnea, unspecified; Z96.652 Presence of left artificial knee joint; Z79.01 Long term (current) use of anticoagulants; Z90.5 Acquired absence of kidney; Z86.711 Personal history of pulmonary embolism; Z86.718 Personal history of other venous thrombosis and embolism; Z90.49 Acquired absence of other specified parts of digestive tract
CPT/HCPCS: 36415; 71046; 80053; 80202; 81001; 83605; 83735; 84443; 85025; 85610; 85730; 86140; 87040; 87077; 87086; 87088; 87186; 93005; 93970; 96365; 96366; 97162; 97165; 99285; A9270; G0378; J0696; J3370

== ENCOUNTER 2020-09-27 20:33 | Emergency (ER) | payer MEDICARE, SELFPAY ==
--- NOTE | ~2020-09-27 | XR_ITS ---
EXAMINATION: XR chest 2V DATE: 09/27/2020 21:14 INDICATION: Chest pain. TECHNIQUE: frontal and lateral views of the chest were obtained. COMPARISON: Chest radiograph dated 09/28/2019 at 10:[address] abdomen and pelvis dated 03/02/2019 FINDINGS: Chronic elevation of the right hemidiaphragm. Opacities in the right lower lung zone with new bluntin g at the right costophrenic angle and posterior sulcus consistent with small right pleural effusion a nd associated atelectasis. No other airspace opacities, pulmonary edema, pneumothorax or left-sided p leural effusion. Cardiomegaly. Cholecystectomy clips in right upper quadrant. Thoracic kyphosis. IMPRESSION: 1. Opacities in the right lower lung zone with blunting at the costophrenic angle and posterior sulcu s consistent with small right pleural effusion and associated atelectasis and/or pneumonia. 2. Chronic elevation of the right hemidiaphragm. 3. Cardiomegaly. Reviewed, dictated and finalized at location A. IMPRESSION: 1. Opacities in the right lower lung zone with blunting at the costophrenic ang le and posterior sulcus consistent with small right pleural effusion and associ ated atelectasis and/or pneumonia. 2. Chronic elevation of the right hemidiaphragm. 3. Cardiomegaly.
[2020-09-27 20:41] VITALS: BP 130/86; PULSE 76; RESP 22; TEMP 36.5; O2SAT 94
[2020-09-27 20:46] VITALS: BP 123/78; PULSE 109; RESP 24; TEMP 36.5; O2SAT 94
--- NOTE | 2020-09-27 20:48 | ECG_ITS ---
Measurements Intervals [place] Rate: 102 P: DC: 0 QRS: -2 QRSD: 117 T: 27 QT: 289 QTc: 377 Interpretive Statements ATRIAL FLUTTER/TACHYCARDIA WITH RAPID VENTRICULAR RESPONSE INTRAVENTRICULAR CONDUCTION DELAY BORDERLINE T WAVE ABNORMALITY- INFERIOR LEADS BASELINE ARTIFACT- I, II, III, AVR, AVL, AVF, V1-V6 ABNORMAL ECG Electronically Signed On 09-28-2020 6:16:23 CDT by Byron Bhatia D.O.
--- NOTE | 2020-09-27 21:08 | PC.NURSE ---
Pt to radiology via cart.
--- NOTE | 2020-09-27 21:37 | ED.ARRPALP ---
HPI - Arrhythmia/Palpitations General Chief Complaint: Arrhythmia/Palpitations Stated Complaint: cp, pressure and discomfort Time Seen by Provider: 09/27/20 21:01 Source: patient and RN notes reviewed Mode of arrival: EMS Limitations: no limitations History of Present Illness HPI narrative: This is a 70 year old male with history of atrial fibrillation who presents for evaluation of afib problems . He states earlier today he developed left abdominal pain with nervousness in his left shoulder. He checked his HR and he states it was erratic so he came to ER. He denies shortness of breath, nausea, vomiting, fever, cough or chest pain. He is bedbound. He takes fleicanide, metoprolol and warfarin for his atrial fibrillation. His template storage clerk is Dr. Moyer. Related Data Home Medications Medication Instructions Recorded Confirmed cholecalciferol (vitamin D3) 50 1,000 unit PO DAILY 03/09/19 02/09/20 mcg (2,000 unit) tablet flecainide 150 mg BID 05/21/19 02/09/20 acetaminophen 500 mg PO Q6H PRN 09/28/19 02/09/20 Allergies Allergy/AdvReac Type Severity Reaction Status Date / Time ampicillin Allergy Unknown Hives Verified 09/28/19 11:25 iodine Allergy Unknown Hives Verified 09/28/19 11:25 Penicillins Allergy Unknown Hives Verified 09/28/19 11:25 Contrast Media Allergy Severe hives Uncoded 09/28/19 11:25 Review of Systems Review of Systems: All systems reviewed & are unremarkable except as noted in HPI and below Constitutional: Constitutional: Denies chills and Denies fever(s) Cardiovascular: Cardiovascular: Denies chest pain Respiratory: Respiratory: Denies cough and Denies dyspnea Gastrointestinal: Gastrointestinal: Reports abdominal pain, Reports diarrhea (chronic due to IBS), Denies nausea and Denies vomiting PMF Past Medical History Medical History Afib Anemia Anxiety Arthritis Bilateral ankle fractures Borderline diabetes BPH (benign prostatic hyperplasia) Dementia Depression DVT (deep venous thrombosis) Gall bladder disease GERD (gastroesophageal reflux disease) Gout History of pericarditis HTN (hypertension) IBS (irritable bowel syndrome) Kidney stones Obesity BMI 42 Osteomyelitis Parkinsons disease Pericarditis Peripheral neuropathy Pneumonia Pulmonary embolism PVD (peripheral vascular disease) Sleep apnea Surgical History Surgical History H/O cardiac catheterization H/O inguinal hernia repair H/O umbilical hernia repair History of arthroscopic knee surgery History of ERCP History of left knee replacement History of nephrectomy, left Hx of appendectomy Hx of cholecystectomy Family History Family History Mother Hypertension, Onset Age: 79 Family history of diabetes mellitus in first degree relative, Onset Age: 79 Family history of arthritis, Onset Age: 79 Family history of congestive heart failure, Onset Age: 79 Sibling Hypertension Carcinoma of colon Father Hypertension, Onset Age: 80 Family history of Parkinson's disease Family history of Alzheimer's disease, Onset Age: 80 Family history of diabetes mellitus in first degree relative, Onset Age: 80 Carcinoma of colon Social History Social History (Updated 09/28/19 @ 18:47 by Chantelle Posey NP) Social History: The patient lives with his and is basically bedbound. The patient desires to be a DNR. His is a durable power transactional attorney for healthcare. Patient is retired from [employer]. He has 2 children. He has never smoked. Does not drink or use illicit drugs. Smoking status: Never smoker Alcohol intake: never Substance use: never Substance use type: does not use Gender identity (if verbalized by the patient): Male Spiritual care concerns: No Exam Const: General: no acute distress, alert
--- NOTE | 2020-09-27 21:37 | PC.NURSE ---
EDMD presented to bedside. Pt now attempting to urinate to provide specimen.
[2020-09-27 22:39] LABS: Basophils Percent Auto 0.4 % (0.2-1.2); Eosinophils Absolute Auto 0.2 K/mm3 (0-0.3); Eosinophils Percent Auto 2.7 % (0-4.4); Hemoglobin 15.3 g/dL (14.0-18.0); Immature Granulocyte Absolute 0.01 K/mm3 (0.00-0.031); Immature Granulocyte Percent A 0.2 % (0-0.5); Lymphocytes Absolute Auto 0.84 K/mm3 (0.9-3.2); Mean Corpuscular HGB Conc 31.2 g/dl (32-36); Mean Corpuscular Hemoglobin 28.1 pg (26-34); Mean Corpuscular Volume 89.9 fl (80-100); Mean Platelet Volume 9.7 fl (7.4-10.4); Monocytes Absolute Auto 0.3 K/mm3 (0.1-0.6); Monocytes Percent Auto 5.7 % (2.6-8.5); Neutrophils Absolute Auto 4.3 K/mm3 (1.3-6.7); Platelet Count Result 158 k/mm3 (150-375); Red Blood Count 5.45 M/mm3 (4.6-6.20); Red Cell Distribution Width 14.6 % (11.5-14.5); White Blood Count 5.6 K/mm3 (4.5-10.0)
[2020-09-27 22:49] LABS: INR 1.8; Prothrombin Time 21.6 Seconds (11.1-14.7)
[2020-09-27 22:50] LABS: Partial Thromboplastin Time 43.4 SECONDS (22.3-36.8)
[2020-09-27 22:57] VITALS: BP 102/75; PULSE 97; RESP 18; O2SAT 94
[2020-09-27 22:57] LABS: Albumin Level 3.7 g/dL (3.5-5.1); Alkaline Phosphatase 127 U/L (38-126); Aspartate Amino Transferase 17 U/L (17-59); Bilirubin,Total 0.9 mg/dL (0.2-1.3)
--- NOTE | 2020-09-27 23:00 | PC.NURSE ---
Pt resting on cart in its lowest position with present at bedside. Labs collected and sent to lab. Pt needed to be straight cath for urine specimen. Specimen collected and sent to lab. Pt tolerated well. Call button and personal items within reach. Pt advised to press call button for assistance. Vitals are stable and pt in no obvious distress.
[2020-09-27 23:02] LABS: Lipase 99 U/L (23-300); Magnesium 1.8 mg/dL (1.6-2.3)
--- NOTE | 2020-09-27 23:03 | PC.NURSE ---
Pt presents to ED with complaints of palpitations with left side chest pain that radiated to right chest and left shoulder since 1900 . Pt admits to hx of Afib and denies chest pain and discomfort at this time. Pt noted to be alert and oriented x4 with stable vitals. Pt noted to be in Afib with steady rate. Pt noted to be alert and oriented x4 with stable vitals and is in no obvious distress at this time. Call button and personal items within reach. Pt advised top ress call button for assistance.
[2020-09-27 23:10] LABS: NT Pro B Type Natriuretic Pept 394 pg/mL (5-100)
[2020-09-27 23:24] LABS: Alanine Aminotransferase < 6 U/L (4-50)
[2020-09-27 23:30] LABS: Anion Gap 7 mmol/L (8-16); Blood Urea Nitrogen 14 mg/dL (9-20); Calcium 8.9 mg/dL (8.4-10.2); Carbon Dioxide 35 mmol/L (22-30); Chloride 98 mmol/L (98-107); Estimated CRCL calculation 155 ml/min; Estimated Glomerular Filt Rate > 60; Glucose 134 mg/dL (75-110); Potassium 3.1 mmol/L (3.4-5.0); Sodium 140 mmol/L (137-145)
[2020-09-27 23:30] LABS: Add Urine Microscopic? YES; Appearance Urine Clear (Clear); Bilirubin Urine Negative (Negative); Blood Urine Negative (Negative); Color Urine Yellow (Yellow); Glucose Urine UA Negative (Negative); Ketones Urine Negative (Negative); Leukocyte Esterase Ur 1+ LEU/UL (Negative); Mucus Urine Rare /lpf; Nitrate Urine Negative (Negative); Protein Urine 1+ mg/dL (Negative); RBC Urine 0-2 /hpf (0-2); Specific Grav Ur 1.018 (1.001-1.035); Squamous Epithelial Cell Urine Rare /hpf (Few); WBC Urine 21-30 /hpf
--- NOTE | 2020-09-27 23:34 | PC.NURSE ---
Pt remains alert and oriented x4 with stable vitals. HR has been stable and pt currently denying chest pain and sob; pt in no obvious distress at this time. is present at bedside. Both aware to press call button for assistance.
--- NOTE | 2020-09-27 23:37 | PC.NURSE ---
Pt noted to desaturate to 89% on room air. Pt placed on 3 liters of O2 and is now saturating at 95%. Pt denies use of home O2 and states he used to use a bipap at bedtime but got tired of it and stopped using it. Will continue to monitor O2.
[2020-09-27 23:42] LABS: Troponin I < 0.012 ng/mL (0.000-0.034)
[2020-09-27] MEDS: POTASSIUM CHLORIDE 20 MEQ TABLET 40 MEQ PO (23:44)
[2020-09-28 00:41] VITALS: BP 104/68; PULSE 104; RESP 25; O2SAT 94
[2020-09-28 00:42] VITALS: PULSE 97
[2020-09-28] MEDS: WARFARIN (*PBKC) 3 MG TABLET 6 MG PO (00:42)
[2020-09-28] MEDS: METOPROLOL SUCCINATE EXT REL 12.5 MG TABCR PO (00:42)
[2020-09-28 01:32] LABS: Troponin I < 0.012 ng/mL (0.000-0.034)
[2020-09-28 02:11] VITALS: BP 110/80; PULSE 93; RESP 19; TEMP 36.8; O2SAT 93
== END 2020-09-28 03:35 | disposition home or self-care (01) ==
PROVIDERS: Family Medicine; Emergency Provider General Practice; PCP Nurse Practitioner Family
DX: I48.91 Unspecified atrial fibrillation (principal); N39.0 Urinary tract infection, site not specified; E87.6 Hypokalemia; F03.90 Unspecified dementia, unspecified severity, without behavioral disturbance, psychotic disturbance, mood disturbance, and anxiety; I10 Essential (primary) hypertension; G20 Parkinson's disease; I73.9 Peripheral vascular disease, unspecified; M86.9 Osteomyelitis, unspecified; K58.0 Irritable bowel syndrome with diarrhea; K21.9 Gastro-esophageal reflux disease without esophagitis; M10.9 Gout, unspecified; G62.9 Polyneuropathy, unspecified; M19.90 Unspecified osteoarthritis, unspecified site; F32.9 Major depressive disorder, single episode, unspecified; F41.9 Anxiety disorder, unspecified; Z86.2 Personal history of diseases of the blood and blood-forming organs and certain disorders involving the immune mechanism; Z86.718 Personal history of other venous thrombosis and embolism; Z79.01 Long term (current) use of anticoagulants; Z87.442 Personal history of urinary calculi; Z86.711 Personal history of pulmonary embolism; Z96.652 Presence of left artificial knee joint; R91.8 Other nonspecific abnormal finding of lung field; I51.7 Cardiomegaly; R00.0 Tachycardia, unspecified; I45.9 Conduction disorder, unspecified; R94.31 Abnormal electrocardiogram [ECG] [EKG]
CPT/HCPCS: 36415; 71046; 80048; 80076; 81001; 83690; 83735; 83880; 84484; 85025; 85610; 85730; 87086; 93005; 99284; A9270

== ENCOUNTER 2021-04-02 11:22 | Inpatient (IN) | payer MEDICARE, SELFPAY ==
[2021-04-02] VITALS (47 sets, daily range): BP systolic 91–156; BP diastolic 58–132; PULSE 51–76; RESP 12–27; TEMP 36.5; O2SAT 90–98
--- NOTE | ~2021-04-02 | US_ITS ---
EXAMINATION: US renal BI DATE: 04/03/2021 07:41 INDICATION: Acute kidney injury. TECHNIQUE: Multiple ultrasound grayscale images of the kidneys were obtained. COMPARISON: CT abdomen and pelvis 03/02/2019 FINDINGS: The right kidney is not well visualized. The right kidney measures 13.2 x 6.1 x 6.2 cm. The left kidn ey is absent. There is no hydronephrosis. The bladder is normal. IMPRESSION: 1. Normal right kidney. No hydronephrosis. 2. Absent left kidney. Reviewed, dictated and finalized at location A. [facility]
--- NOTE | ~2021-04-02 | XR_ITS ---
EXAMINATION: XR abdomen obstructive series EXAM DATE: 04/05/2021 15:05 INDICATION: Diarrhea. TECHNIQUE: Frontal upright projection of the upper abdomen, frontal projection of the lower abdomen f or interpretation. Compared to KUB from 2017. FINDINGS: Small to moderate amount of stool in the rectosigmoid colon. The colon otherwise is filled with moderate to large amount of gas, and probably some fluid without solid stool-like appearance. T here is colonic redundancy. No small bowel obstruction suspected. Evidence of a right pleural effusio n. No free intraperitoneal gas. There are cholecystectomy clips. IMPRESSION: Moderate to large amount of colonic gas, and probably fluid. Gastroenteritis and colonic ileus? Reviewed, dictated and finalized at location B. [facility] [employer] [facility] IMPRESSION: Moderate to large amount of colonic gas, and probably fluid. Gastro enteritis and colonic ileus?
--- NOTE | ~2021-04-02 | XR_ITS ---
EXAMINATION: XR chest 2V EXAM DATE: 04/02/2021 12:29 INDICATION: weakness- TECHNIQUE: Frontal and lateral projections of the chest obtained and reviewed. Comparison is made to prior examination from 09/27/2020. FINDINGS: Low lung volume. Difficult positioning limiting examination. Lung bases not well evaluated. Mid and upper lung zones without definite confluent consolidation. No pneumothorax. The cardiac silh ouette is enlarged. IMPRESSION: Limited exam demonstrating cardiomegaly. Reviewed, dictated and finalized at location B. [employer]
[2021-04-02] MEDS: LACTATED RINGERS 1,000 ML 150 ML IV CONT (12:05)
--- NOTE | 2021-04-02 12:13 | ECG_ITS ---
Measurements Intervals [place] Rate: 54 P: 38 MO: 284 QRS: 16 QRSD: 154 T: 50 QT: 505 QTc: 480 Interpretive Statements SINUS BRADYCARDIA WITH FIRST DEGREE AV BLOCK INTRAVENTRICULAR CONDUCTION DELAY DELAYED PRECORDIAL R/S TRANSITION BASELINE ARTIFACT- I, II, III, AVR, AVL, AVF, V1-V6 ABNORMAL ECG Electronically Signed On 04-02-2021 12:43:22 PROCESS TECH by Byron Bhatia D.O.
[2021-04-02 13:01] LABS: Basophils Percent Auto 0.3 % (0.2-1.2); Eosinophils Absolute Auto 0.3 K/mm3 (0-0.3); Eosinophils Percent Auto 3.4 % (0-4.4); Hematocrit 40.4 % (42.0-52.0); Hemoglobin 12.9 g/dL (14.0-18.0); Immature Granulocyte Absolute 0.02 K/mm3 (0.00-0.031); Immature Granulocyte Percent A 0.3 % (0-0.5); Lymphocytes Absolute Auto 0.97 K/mm3 (0.9-3.2); Lymphocytes Percent Auto 13.3 % (18.3-44.2); Mean Corpuscular HGB Conc 31.9 g/dl (32-36); Mean Corpuscular Hemoglobin 29.1 pg (26-34); Mean Corpuscular Volume 91.2 fl (80-100); Mean Platelet Volume 10.6 fl (7.4-10.4); Monocytes Absolute Auto 0.5 K/mm3 (0.1-0.6); Monocytes Percent Auto 6.2 % (2.6-8.5); Neutrophils Absolute Auto 5.6 K/mm3 (1.3-6.7); Neutrophils Percent Auto 76.5 % (45.5-73.1); Platelet Count Result 151 k/mm3 (150-375); Red Blood Count 4.43 M/mm3 (4.6-6.20); Red Cell Distribution Width 18.6 % (11.5-14.5); White Blood Count 7.3 K/mm3 (4.5-10.0)
[2021-04-02 13:13] LABS: Alanine Aminotransferase 10 U/L (4-50); Albumin Level 3.9 g/dL (3.5-5.1); Alkaline Phosphatase 141 U/L (38-126); Anion Gap 13 mmol/L (8-16); Aspartate Amino Transferase 20 U/L (17-59); Bilirubin,Total 0.5 mg/dL (0.2-1.3); Blood Urea Nitrogen 97 mg/dL (9-20); Calcium 9.3 mg/dL (8.4-10.2); Carbon Dioxide 17 mmol/L (22-30); Chloride 109 mmol/L (98-107); Estimated CRCL calculation 49 ml/min; Estimated Glomerular Filt Rate 33; Glucose 127 mg/dL (65-110); Potassium 5.9 mmol/L (3.4-5.0); Sodium 139 mmol/L (137-145)
[2021-04-02 13:16] LABS: Prothrombin Time 51.8 Seconds (11.1-14.7)
[2021-04-02 13:24] LABS: Troponin I < 0.012 ng/mL (0.000-0.034)
[2021-04-02 13:41] LABS: INR 6.1
[2021-04-02 14:38] LABS: NT Pro B Type Natriuretic Pept 144 pg/mL (5-100)
[2021-04-02] MEDS: LACTATED RINGERS 1,000 ML 999 ML IV CONT (15:30)
[2021-04-02 15:33] LABS: Add Urine Microscopic? NO; Appearance Urine Clear (Clear); Bilirubin Urine Negative (Negative); Blood Urine Negative (Negative); Color Urine Yellow (Yellow); Glucose Urine UA Negative (Negative); Ketones Urine Negative (Negative); Leukocyte Esterase Ur Negative LEU/UL (Negative); Nitrate Urine Negative (Negative); Protein Urine Negative (Negative); Specific Grav Ur 1.012 (1.001-1.035); Urobilinogen Urine Negative mg/dL (<2.0)
[2021-04-02 15:43] LABS: Lactic Acid Reflex 0.7 mmol/L (0.7-2.1)
--- NOTE | 2021-04-02 16:09 | ED.WEAKNESS ---
HPI - Weakness General Chief complaint: Weakness Stated complaint: weakness Time Seen by Provider: 04/02/21 12:00 Source: patient and family Mode of arrival: ambulatory Limitations: no limitations History of Present Illness HPI Narrative: 70-year-old male Essentially appears to be bedbound according to his due to orthopedic issues They report a fairly gradual onset over the past 2 or 3 weeks of increasing fatigue and lethargy and occasionally decreased alertness She also reports that about 6 months ago he was diagnosed with dementia, and she thinks that that is also getting worse and manifesting sometimes with visual hallucinations Sounds like they had a home health evaluation today and they thought he should be checked in the ED He also reports that he has been having some trouble with his eyesight for about 6 months They say that his legs are always swollen and the current amount of edema present is typical Related Data Home Medications Medication Instructions Recorded Confirmed cholecalciferol (vitamin D3) 50 1,000 unit PO DAILY 03/09/19 02/09/20 mcg (2,000 unit) tablet flecainide 150 mg BID 05/21/19 02/09/20 acetaminophen 500 mg PO Q6H PRN 09/28/19 02/09/20 Allergies Allergy/AdvReac Type Severity Reaction Status Date / Time ampicillin Allergy Unknown Hives Verified 09/28/19 11:25 iodine Allergy Unknown Hives Verified 09/28/19 11:25 Penicillins Allergy Unknown Hives Verified 09/28/19 11:25 Contrast Media Allergy Severe hives Uncoded 09/28/19 11:25 Review of Systems Review of Systems: All systems reviewed & are unremarkable except as noted in HPI and below Constitutional: Constitutional: Reports no additional constitutional complaints, Denies chills, Reports fatigue, Denies fever(s), Denies headache(s) and Reports weakness Eyes: Eyes: Reports no additional eye complaints and Denies change in vision ENT: Denies headache(s) and Denies sore throat Cardiovascular: Cardiovascular: Denies chest pain and Denies dyspnea Respiratory: Respiratory: Reports cough and Denies dyspnea Gastrointestinal: Gastrointestinal: Denies abdominal pain, Denies diarrhea and Denies vomiting Genitourinary: Genitourinary: Denies dysuria and Denies urinary frequency Musculoskeletal: Musculoskeletal: Reports myalgias, Denies deformity, Denies arthralgias, Reports joint swelling and Denies numbness Integumentary/Breasts: Skin/Breast: Reports rash and Denies wounds Neurologic: Denies headache(s), Denies focal weakness and Denies numbness Psychiatric: Psychiatric: Reports no additional psychiatric complaints Comments: Hallucinations Endocrine: Endocrine: Reports no additional endocrine complaints Hematologic/Lymphatic: Hematologic/Lymphatic: Reports no additional hematologic/lymphatic complaints Allergic/Immunologic: Allergic/Immunologic: Reports no additional allergic/immunologic complaints PMFSH Past Medical History Medical History Anxiety Arthritis Benign prostatic hyperplasia Bilateral ankle fractures Borderline diabetes Chronic anemia Chronic anticoagulation Deep venous thrombosis Dementia Depression Gastroesophageal reflux disease Gout History of peptic ulcer History of pericarditis Hypertension Irritable bowel syndrome Kidney stones Obstructive sleep apnea on CPAP Osteomyelitis Parkinsons disease Paroxysmal atrial fibrillation Pericarditis Peripheral neuropathy Peripheral vascular disease Pneumonia Pulmonary embolism Surgical History Surgical History History of appendectomy History of arthroplasty of left knee History of arthroscopic knee surgery History of cardiac catheterization History of cholecystectomy History of ERCP History of inguinal hernia repair History of left knee replacement History of left nephrectomy (1956) History of umbilical hernia repair Family History Family H
--- NOTE | 2021-04-02 16:15 | PM.IMHP ---
H&P: HPI History of Present Illness Date/Time: 04/02/21 16:15 Chief Complaint: Weakness and not acting himself. Narrative: This is a 70-year-old male with paroxysmal atrial fibrillation on anticoagulation, hypertension, hyperlipidemia, sleep apnea, benign prostatic hyperplasia, and history of DVT and pulmonary embolism who presented to the emergency department earlier today from home for evaluation of increasing weakness and not acting like himself. A home health nurse was visiting today at which time the patient seemed to be more reserved and somnolent, falling asleep easily and not interacting as usual. Because of this he was sent into the ER for evaluation. 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 He reports feeling ?lethargic? and he tells me that he has been feeling a bit confused and perhaps he was maybe even diagnosed with dementia in the last year or so. Labs done on arrival to the emergency department showed a marked increase in his BUN and creatinine from baseline is being admitted in this setting. With further questioning he tells me that he has not had a good appetite for quite some time and admits that he probably does not eat or drink as much as he should. He also reports daily loose stools, 2 to 4 per day, which has been ongoing for years. He has not noticed a decrease in urine output. He denies fever, chills, and sweats. No headache, vertigo, focal weakness, or paresthesias. He has not had chest pain or shortness of breath. No nausea, vomiting, or diarrhea. No dysuria. He has chronic lower extremity edema which is unchanged. He denies sick contacts. Review of Systems Review of Systems: Twelve systems are reviewed with pertinent positives and negatives as per HPI. Patient states that he hallucinates on occasion. Denies orthopnea and PND. I am not sure he is always compliant with his CPAP. Except as documented, all other systems were reviewed and are negative. [facility] Past Medical History Medical History (Updated 04/02/21 @ 23:06 by Ananya Mann PA-C) Anxiety Arthritis Benign prostatic hyperplasia Bilateral ankle fractures Borderline diabetes Chronic anemia Chronic anticoagulation Deep venous thrombosis Dementia Depression Gastroesophageal reflux disease Gout History of peptic ulcer History of pericarditis Hypertension Irritable bowel syndrome Kidney stones Obstructive sleep apnea on CPAP Osteomyelitis Parkinsons disease Paroxysmal atrial fibrillation Pericarditis Peripheral neuropathy Peripheral vascular disease Pneumonia Pulmonary embolism Surgical History Surgical History History of appendectomy History of arthroplasty of left knee History of arthroscopic knee surgery History of cardiac catheterization History of cholecystectomy History of ERCP History of inguinal hernia repair History of left knee replacement History of left nephrectomy (1956) History of umbilical hernia repair Family History Family History Mother Hypertension, Onset Age: 79 Family history of diabetes mellitus in first degree relative, Onset Age: 79 Family history of arthritis, Onset Age: 79 Family history of congestive heart failure, Onset Age: 79 Sibling Hypertension Carcinoma of colon Father Hypertension, Onset Age: 80 Family history of Parkinson's disease Family history of Alzheimer's disease, Onset Age: 80 Family history of diabetes mellitus in first degree relative, Onset Age: 80 Carcinoma of colon Social History Social History (Updated 04/02/21 @ 22:58 by Ananya Mann PA-C) Social History: The patient is and lives with his in [place]. 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 They have 2 children. He is retired from [employer]. Lifelong nonsmoker. No alcohol or illici
[2021-04-02] MEDS: SODIUM CHLORIDE 0.9% IV 1,000 ML 999 ML IV CONT (17:37)
[2021-04-02] MEDS: SODIUM CHLORIDE 0.9% IV 1,000 ML 150 ML IV CONT (17:38)
[2021-04-02 19:50] LABS: Free T4 Free Thyroxine Reflex 1.18 ng/dL (0.78-2.19)
[2021-04-02 21:45] LABS: Total Triiodothyronine (T3) 0.85 NG/ML (0.97-1.69)
--- NOTE | 2021-04-02 21:47 | PC.NURSE ---
pt placed in hospital bed
--- NOTE | 2021-04-03 00:08 | PC.NURSE ---
incontinent of stool and urine bedding changed. open wound left buttock 4x4cm excoriated area and 2x2cm excoriated area left buttock with bleeding dressing applied
[2021-04-03 00:17] LABS: Anion Gap 10 mmol/L (8-16); Blood Urea Nitrogen 77 mg/dL (9-20); CRP 0.8 mg/dL (<1.0); Calcium 9.2 mg/dL (8.4-10.2); Carbon Dioxide 18 mmol/L (22-30); Chloride 110 mmol/L (98-107); Estimated CRCL calculation 69 ml/min; Estimated Glomerular Filt Rate 50; Glucose 119 mg/dL (65-110); Potassium 5.9 mmol/L (3.4-5.0); Sodium 138 mmol/L (137-145)
[2021-04-03 03:11] VITALS: BP 119/84; PULSE 65; RESP 18; O2SAT 93
[2021-04-03] MEDS: SODIUM CHLORIDE 0.9% IV 1,000 ML 100 ML IV CONT (03:34)
--- NOTE | 2021-04-03 03:58 | PC.NURSE ---
wet diaper changed with assist of 3
[2021-04-03 05:39] VITALS: BP 108/68; PULSE 62; RESP 16; O2SAT 94
[2021-04-03 07:48] LABS: Eosinophil Urine None Seen % (None Seen)
[2021-04-03 08:02] LABS: Total Protein Urine Random 11 mg/dL; Ur Ttl Prot Creatinine Ratio 0.15 mg/mg (0-0.20)
[2021-04-03 08:06] LABS: Potassium Urine Random 15.6 meq/L; Sodium Urine Random 42 meq/L
[2021-04-03 09:02] LABS: EDCOVIDSCREEN Negative (Negative)
[2021-04-03 09:22] LABS: Prothrombin Time 56.9 Seconds (11.1-14.7)
[2021-04-03 09:36] LABS: Alanine Aminotransferase 10 U/L (4-50); Albumin Level 3.8 g/dL (3.5-5.1); Alkaline Phosphatase 145 U/L (38-126); Anion Gap 12 mmol/L (8-16); Aspartate Amino Transferase 20 U/L (17-59); Bilirubin,Total 0.8 mg/dL (0.2-1.3); Blood Urea Nitrogen 62 mg/dL (9-20); Calcium 9.3 mg/dL (8.4-10.2); Carbon Dioxide 17 mmol/L (22-30); Chloride 114 mmol/L (98-107); Estimated CRCL calculation 74 ml/min; Estimated Glomerular Filt Rate 54; Glucose 117 mg/dL (65-110); Phosphorus 3.1 mg/dL (2.5-4.5); Potassium 5.6 mmol/L (3.4-5.0); Sodium 143 mmol/L (137-145)
[2021-04-03 09:37] LABS: INR 6.9
[2021-04-03 09:49] VITALS: BP 117/72; PULSE 59; RESP 13
--- NOTE | 2021-04-03 14:07 | PM.IMPN ---
Progress Note: A&P Assessment and Plan (1) Acute kidney injury: Code(s): N17.9 - Acute kidney failure, unspecified Status: Acute Assessment and Plan: BUN 97 and Cr 2.0 on admission. He has received IV fluids. Renal function better at 62 and 1.3 today. Perhaps secondary to poor intake as he appeared dry on exam. He also has a non-gap metabolic acidosis that is unchanged. Renal US showing normal right kidney without hydronephrosis; absent left kidney. He has been cautiously hydrated. Will decreased IV fluid rate. Add oral bicarb (2) Hyperkalemia: Code(s): E87.5 - Hyperkalemia Status: Acute Assessment and Plan: Secondary to above. Lisinopril on hold. Repeat potassium elevated but better at 5.6. Could be related to the acidosis. Add kayexalate once. Bicarb will help as well. Follow (3) Supratherapeutic INR: Code(s): R79.1 - Abnormal coagulation profile Status: Acute Assessment and Plan: INR 6.1 on admission. Warfarin was placed on hold. Repeat INR in a.m. was 6.9. Blood loss from pulling out his IV. Encouraged him to stay. No other evidence of active bleeding. Repeat CBC with repeat potassium tonight. (4) Person under investigation for COVID-19: Code(s): Z20.822 - Contact with and (suspected) exposure to COVID-19 Status: Acute Assessment and Plan: CXR on admission was limited. He was swabbed for COVID in the ER. Patient remains on isolation pending those results. (5) Generalized weakness: Code(s): R53.1 - Weakness Status: Acute Assessment and Plan: He is chronically debilitated has been bed-bound for 2 years due to orthopedic issues. He has more weak at this time secondary to above. (6) Hypertension: Code(s): I10 - Essential (primary) hypertension Status: Inactive Assessment and Plan: Patient's blood pressure was reviewed on 04/03 Blood pressure remains well controlled. Will continue to monitor (7) Paroxysmal atrial fibrillation: Code(s): I48.0 - Paroxysmal atrial fibrillation Status: Acute Assessment and Plan: EKG showing NSR. Rik hold flecainide given the hyperkalemia and QTc 480. Warfarin on hold as INR is supratherapeutic. HR noted - hold metoprolol for now. Subjective Date/time seen: 04/03/21 14:07 Interval history: 70yo male with AFib on terminal carman anticoagulation, HTN, EMILIANA and chronic debility here for weakness and altered mental status. Entered the room to the RN cleaning up splatters of blood on the patient and bed from where the patient pulled out his IV. He is insistent on going home. He has 'had enough' and threatens to sign out AMA. He states he is here due to SOB and sent in by his physician. he stills feels SOB. No CP. He has nausea but no vomiting. Poor appetite Exam Narrative: AF 97.7 117/72 59 13 94% ra Gen - NARD Chest - clear anteriorly, nml RR CV - RRR S1/S2 Abd - Soft, obese, NT Ext - 3+ pitting and nonpitting pedal edema Neuro - Alert and appropriate. Psych - unhappy mood. Skin - Warm and dry Objective Data Vital Signs Vital Signs: Vital Signs - 24 hr 04/02/21 14:18 04/02/21 15:00 04/02/21 15:30 Pulse Rate 54 L Respiratory Rate 18 Blood Pressure 100/73 91/58 L Pulse Oximetry 95 95 04/02/21 15:31 04/02/21 15:52 04/02/21 16:14 Pulse Rate Respiratory Rate Blood Pressure Pulse Oximetry 98 96 94 04/02/21 16:15 04/02/21 16:16 04/02/21 16:34 Pulse Rate Respiratory Rate Blood Pressure 102/69 Pulse Oximetry 95 95 95 04/02/21 16:45 04/02/21 16:46 04/02/21 17:00 Pulse Rate 53 L Respiratory Rate 18 18 Blood Pressure 110/68 105/67 Pulse Oximetry 91 93 93 04/02/21 17:01 04/02/21 17:15 04/02/21 17:16 Pulse Rate 53 L Respiratory Rate 18 Blood Pressure 112/66 Pulse Oximetry 95 90 93 04/02/21 17:30 04/02/21 17:47 04/02/21 18:00 Pulse Rate 51 L Respiratory Rate 14 22 H
--- NOTE | 2021-04-03 14:22 | PC.NURSE ---
hospitalist at bedside. patient pulled out iv and is refusing further treatment. states he wants to leave ama. call placed to patients to hot die picker patient. no answer and message left
[2021-04-03 14:30] LABS: SARS-CoV-2 RNA PCR Negative
[2021-04-03 16:00] VITALS: BP 118/70; PULSE 67; RESP 20; TEMP 36.8; O2SAT 94
[2021-04-03 17:11] LABS: Potassium 5.8 mmol/L (3.4-5.0)
[2021-04-03 17:12] LABS: Hematocrit 41.8 % (42.0-52.0); Hemoglobin 13.2 g/dL (14.0-18.0); Mean Corpuscular HGB Conc 31.6 g/dl (32-36); Mean Corpuscular Hemoglobin 28.5 pg (26-34); Mean Corpuscular Volume 90.3 fl (80-100); Mean Platelet Volume 10.7 fl (7.4-10.4); Platelet Count Result 153 k/mm3 (150-375); Red Blood Count 4.63 M/mm3 (4.6-6.20); Red Cell Distribution Width 18.5 % (11.5-14.5); White Blood Count 7.4 K/mm3 (4.5-10.0)
[2021-04-03 17:48] VITALS: BMI 44.8
--- NOTE | 2021-04-03 17:49 | PC.NURSE ---
This patient, Jorge Zamora, was admitted to 3 [facility] Room 323-01, arrived at 1715. Patient/family oriented to hospital policies and general routines including ID bracelet, bed and alarms, visiting hours, pain management, procedures, bathroom and other care routines, personal items, smoking policy, room service/diet, and visiting hours. Information on how to activate the Rapid Response Team has been discussed. Patient/Family are encouraged to report perceived risks to care and to ask questions if they do not understand what they are told or what they should do.
[2021-04-03] MEDS: SODIUM CHLORIDE 0.9% IV 1,000 ML 70 ML IV CONT (19:06)
[2021-04-03] MEDS: SODIUM POLYSTYRENE SULFONONATE 15 GM/60 ML BTL PO (19:44)
[2021-04-03] MEDS: TAMSULOSIN HCL 0.4 MG CAPSULE PO (19:44)
[2021-04-03 22:00] VITALS: BP 119/54; PULSE 63; RESP 18; TEMP 36.1; O2SAT 96
[2021-04-03] MEDS: DONEPEZIL HCL 10 MG TABLET PO (23:09)
[2021-04-03] MEDS: SODIUM BICARBONATE TAB 650 MG TABLET PO (23:09)
[2021-04-04] VITALS (9 sets, daily range): BP systolic 103–116; BP diastolic 55–66; PULSE 61–69; RESP 17–18; TEMP 35.8–36.8; O2SAT 95–98
--- NOTE | 2021-04-04 | ECHO_ITS ---
Patient Info Name: Jorge Zamora Age: 70 years : 1950 Gender: Male Ht: 74 in Wt: 350 lbs BSA: 2.95 m2 HR: 66 bpm BP: 113 / 57 mmHg Heart Rhythm: Sinus Rhythm Exam Date: 04/04/2021 12:59 PM Exam Location: [facility]monary Patient Status: Inpatient Admit Date: 04/02/2021 Staff Ordering Physician: Ramu Osullivan MD Digital Media Manager: Michael Jiménez, GUERA, RT Attending Provider: Jenae Lopez MD Exam Type: CA echo doppler color flow Study Info Indications R94.31 - Abnormal electrocardiogram ECG EKG Complete two-dimensional, color flow and Doppler transthoracic echocardiogram is performed. Strain analysis performed. Summary 1. Complete two-dimensional, color flow and Doppler transthoracic echocardiogram is performed. 2. Technically difficult study with limited views. Regional wall motion assessment limited due to poor endomyocardial border definition. 3. Left ventricular systolic function is normal, estimated at 55-60%. 4. There is moderately increased left ventricular wall thickness. 5. Left ventricular septal wall motion is abnormal with septal motion related to bundle branch block. 6. The left ventricular diastolic function is grade I diastolic dysfunction. 7. Left atrial chamber dimension is moderately enlarged. 8. There is mild mitral valve regurgitation. 9. There is no aortic valve stenosis. Recommendations * Consider definity contrast enhancement to improve evaluation of regional wall motion assessment if clinically indicated. Left Ventricle Technically difficult study with limited views. Regional wall motion assessment limited due to poor endomyocardial border definition. Left ventricular chamber dimension is normal. Left ventricular systolic function is normal, estimated at 55-60%. There is moderately increased left ventricular wall thickness. Left ventricular septal wall motion is abnormal with septal motion related to bundle branch block. The left ventricular diastolic function is grade I diastolic dysfunction. Global longitudinal strain is mildly elevated at -17 %. Right Ventricle Right ventricular chamber dimension is not well visualized. Left Atria Left atrial chamber dimension is moderately enlarged. Right Atria Right atrial chamber dimension is not well visualized. Aortic Valve The aortic valve is not well visualized. There is no aortic valve stenosis. There is no aortic valve regurgitation. Pulmonic Valve The pulmonic valve is not well visualized. There is mild pulmonic regurgitation. Mitral Valve The mitral valve has normal leaflets. There is mild mitral valve regurgitation. Tricuspid Valve The tricuspid valve leaflets are normal. There is trace tricuspid valve regurgitation. Unable to estimate PA systolic pressure due to poor spectral resolution of tricuspid regurgitant jet velocity. Pericardium/Pleural The pericardium appears not well visualized. Inferior Vena Cava Dilated inferior vena cava with <50% collapse upon inspiration consistent with elevated right atrial pressure, 10 mmHg. Aorta The aortic root size at the sinus of Valsalva is normal. There is mild aortic atherosclerosis. Left Ventricular Outflow Tract Name Value Normal LVOT 2D LVOT Diameter
--- NOTE | 2021-04-04 00:15 | PCRCNOTE ---
pt refusing CPAP stating his AHI numbers have never improved with the use of a CPAP. pt states he props his head on pillows and is 'just fine'.
--- NOTE | 2021-04-04 08:00 | ECG_ITS ---
Measurements Intervals [place] Rate: 61 P: 66 VT: 219 QRS: 51 QRSD: 119 T: 87 QT: 435 QTc: 440 Interpretive Statements SINUS RHYTHM WITH FIRST DEGREE AV BLOCK INTRAVENTRICULAR CONDUCTION DELAY LOW QRS VOLTAGE IN LIMB LEADS MINIMAL Q WAVES- HIGH LATERAL LEADS ST-T WAVE ABNORMALITY IN ANTERIOR LEADS- CONSIDER ISCHEMIA ABNORMAL ECG Electronically Signed On 04-04-2021 11:15:33 CHIEF NURSING EXECUTIVE by Byron Bhatia D.O.
[2021-04-04 08:43] LABS: Basophils Percent Auto 0.4 % (0.2-1.2); Eosinophils Absolute Auto 0.3 K/mm3 (0-0.3); Eosinophils Percent Auto 3.7 % (0-4.4); Hematocrit 39.9 % (42.0-52.0); Hemoglobin 12.5 g/dL (14.0-18.0); Immature Granulocyte Absolute 0.03 K/mm3 (0.00-0.031); Immature Granulocyte Percent A 0.4 % (0-0.5); Immature Platelet Fraction Pct 3.7 % (0.9-11.2); Lymphocytes Absolute Auto 1.04 K/mm3 (0.9-3.2); Lymphocytes Percent Auto 15.3 % (18.3-44.2); Mean Corpuscular HGB Conc 31.3 g/dl (32-36); Mean Corpuscular Hemoglobin 29.1 pg (26-34); Mean Corpuscular Volume 92.8 fl (80-100); Mean Platelet Volume 10.5 fl (7.4-10.4); Monocytes Absolute Auto 0.5 K/mm3 (0.1-0.6); Monocytes Percent Auto 6.6 % (2.6-8.5); Neutrophils Percent Auto 73.6 % (45.5-73.1); Platelet Count Result 151 k/mm3 (150-375); Red Cell Distribution Width 18.7 % (11.5-14.5); White Blood Count 6.8 K/mm3 (4.5-10.0)
[2021-04-04 09:03] LABS: Prothrombin Time 62.6 Seconds (11.1-14.7)
[2021-04-04 09:07] LABS: Alanine Aminotransferase 7 U/L (4-50); Albumin Level 3.5 g/dL (3.5-5.1); Alkaline Phosphatase 130 U/L (38-126); Anion Gap 6 mmol/L (8-16); Aspartate Amino Transferase 19 U/L (17-59); Bilirubin,Total 0.7 mg/dL (0.2-1.3); Blood Urea Nitrogen 37 mg/dL (9-20); Calcium 8.9 mg/dL (8.4-10.2); Carbon Dioxide 16 mmol/L (22-30); Chloride 116 mmol/L (98-107); Estimated CRCL calculation 105 ml/min; Estimated Glomerular Filt Rate > 60; Glucose 104 mg/dL (65-110); Potassium 4.9 mmol/L (3.4-5.0); Sodium 138 mmol/L (137-145)
[2021-04-04] MEDS: SILVERGEL (ELTA) 45 ML 1 APPLIC TOPICAL (09:08)
[2021-04-04] MEDS: SODIUM BICARBONATE TAB 650 MG TABLET PO ×2 (09:08→21:02)
[2021-04-04 09:16] LABS: INR 7.8
[2021-04-04] MEDS: SODIUM CHLORIDE 0.9% IV 1,000 ML 70 ML IV CONT (10:11)
--- NOTE | 2021-04-04 10:45 | PM.IMPN ---
Progress Note: A&P Assessment and Plan (1) Acute kidney injury: Code(s): N17.9 - Acute kidney failure, unspecified Status: Acute Assessment and Plan: BUN 97 and Cr 2.0 on admission. He has received IV fluids. Renal function better at 37 and 0.9 today. Perhaps secondary to poor intake as he appeared dry on exam. He also has a non-gap metabolic acidosis that is essentially unchanged. Renal US showing normal right kidney without hydronephrosis; absent left kidney. He has been cautiously hydrated. Continue oral bicarb. He is eating better so will stop IV fluids. (2) Hyperkalemia: Code(s): E87.5 - Hyperkalemia Status: Acute Assessment and Plan: Secondary to above. Lisinopril held. Repeat potassium better at 4.9. Could be related to the acidosis. He did recieve kayexalate once. Cortisol and TSH levels okay. Continue to monitor. (3) Supratherapeutic INR: Code(s): R79.1 - Abnormal coagulation profile Status: Acute Assessment and Plan: INR 6.1 on admission. Warfarin was placed on hold. Repeat INR 7.8. No evidence of acute blood loss and Hgb stable at 12.5. Follow. Consider oral VitK but will monitor for now. Resume Coumadin once INR in the 3 range (4) Generalized weakness: Code(s): R53.1 - Weakness Status: Acute Assessment and Plan: He is chronically debilitated has been bed-bound for 2 years due to orthopedic issues. He has more weak at this time secondary to above. (5) Hypertension: Code(s): I10 - Essential (primary) hypertension Status: Inactive Assessment and Plan: Patient's blood pressure was reviewed on 04/04 Blood pressure remains well controlled. Will continue to monitor (6) Paroxysmal atrial fibrillation: Code(s): I48.0 - Paroxysmal atrial fibrillation Status: Acute Assessment and Plan: EKG showing NSR. Given the hyperkalemia and QTc 480, we held the flecanide. Warfarin on hold as INR is still supratherapeutic. HR noted so magnolia continue to hold metoprolol for now. EKG today reviewed showing QTc 440 and potassium better. Resume Flecanide EKG today now showing T wave inversions in the anterior leads. Trop x 1 normal. No CP. Will repeat troponin. Check Echo (7) Person under investigation for COVID-19: Code(s): Z20.822 - Contact with and (suspected) exposure to COVID-19 Status: Acute Assessment and Plan: CXR on admission was limited. COVID negative Subjective Date/time seen: 04/04/21 10:45 Interval history: 70yo male with AFib on meterman anticoagulation, HTN, EMILIANA and chronic debility here for weakness and altered mental status. Patient feels better today. He states he is not able to eat much but is eating better. He is in better spirits today. Did not wear the CPAP here and does not wear this at home. Exam Narrative: AF 98.2 113/57 61 18 96% ra Gen - NARD Chest - lungs clear anteriorly, nml RR CV - RRR S1/S2 Abd - Soft, obese, NT Ext - 3+ pitting and nonpitting pedal edema with tenderness Neuro - Alert and appropriate. Psych - nml mood. in good spirits Skin - Warm and dry Objective Data Vital Signs Vital Signs: Vital Signs - 24 hr 04/03/21 16:00 04/03/21 22:00 04/04/21 05:20 Temperature 98.3 F 97.0 F L 98.2 F Pulse Rate 67 63 69 Respiratory Rate 20 18 18 Blood Pressure 118/70 119/54 L 112/61 Pulse Oximetry 94 96 98 04/04/21 08:00 Temperature 98.2 F Pulse Rate 61 Respiratory Rate 18 Blood Pressure 113/57 L Pulse Oximetry 96 Intake/Output Intake/Output: Intake & Output 04/01/21 04/02/21 04/03/21 04/04/21 23:59 23:59 23:59 23:59 Intake Total 3000 3240 6 Balance 3000 3240 6 Meds/Results Medications: Active Medications Generic Name Dose Route Start Last Admin Trade Name Freq PRN Reason Stop Dose Admin Acetaminophen 500 mg 04/03/21 08:10 Acetaminophen 500 Mg Tablet PO Q6H PRN Pain Donepezil HC
[2021-04-04 12:15] LABS: Troponin I < 0.012 ng/mL (0.000-0.034)
[2021-04-04] MEDS: FLECAINIDE ACETATE 50 MG TABLET PO ×2 (14:13→21:02)
[2021-04-04] MEDS: FLECAINIDE ACETATE 100 MG TABLET PO ×2 (14:15→21:03)
--- NOTE | 2021-04-04 15:48 | PCDIET ---
JENNAN consulted for MST 5. Unable to visit with pt. Spoke with pt via phone who reports that he has lost about 51lbs over the past couple of month. Pt reports that he doesn't sleep well which he associates with medications that he takes for Parkinson disease. Pt reports that he sometimes has a decreased appetite and doesn't eat very much but couldn't associate it with anything. Pt reports that he will sometimes have difficulty swallowing food. Pt reports that it feels like his throat is tigher when trying to swallow food. Pt could not associate specific foods to difficulty swallowing. Spoke with MD via phone to place orders for bedside swallow study. Per EMR, pt is on a heart healthy diet and reported intake is 50%, 80%, and 100%. Agree with current diet orders at this time. Will continue to follow.
--- NOTE | 2021-04-04 15:57 | PCSTNOTE ---
Please refer to the Bedside Swallow Evaluation in the EMR. Please note, silent aspiration cannot be ruled out at bedside.
[2021-04-04] MEDS: TAMSULOSIN HCL 0.4 MG CAPSULE PO (17:13)
[2021-04-04] MEDS: DONEPEZIL HCL 10 MG TABLET PO (21:02)
[2021-04-05] VITALS (7 sets, daily range): BP systolic 114–124; BP diastolic 67–91; PULSE 61–74; RESP 14–20; TEMP 36.2–36.6; O2SAT 94–100
[2021-04-05 07:22] LABS: Albumin Level 3.3 g/dL (3.5-5.1); Anion Gap 11 mmol/L (8-16); Blood Urea Nitrogen 26 mg/dL (9-20); Calcium 8.9 mg/dL (8.4-10.2); Carbon Dioxide 18 mmol/L (22-30); Chloride 110 mmol/L (98-107); Estimated CRCL calculation 117 ml/min; Estimated Glomerular Filt Rate > 60; Glucose 105 mg/dL (65-110); Magnesium 1.7 mg/dL (1.6-2.3); Phosphorus 2.7 mg/dL (2.5-4.5); Potassium 4.4 mmol/L (3.4-5.0); Sodium 139 mmol/L (137-145)
[2021-04-05 07:25] LABS: Hematocrit 38.6 % (42.0-52.0); Hemoglobin 11.9 g/dL (14.0-18.0); Immature Platelet Fraction Pct 3.7 % (0.9-11.2); Mean Corpuscular HGB Conc 30.8 g/dl (32-36); Mean Corpuscular Hemoglobin 29.4 pg (26-34); Mean Corpuscular Volume 95.3 fl (80-100); Mean Platelet Volume 10.5 fl (7.4-10.4); Platelet Count Result 149 k/mm3 (150-375); Red Blood Count 4.05 M/mm3 (4.6-6.20); Red Cell Distribution Width 18.4 % (11.5-14.5); White Blood Count 5.9 K/mm3 (4.5-10.0)
[2021-04-05 07:27] LABS: INR 4.4; Prothrombin Time 40.6 Seconds (11.1-14.7)
[2021-04-05] MEDS: allopurinoL 300 MG TABLET PO (08:28)
[2021-04-05] MEDS: SODIUM BICARBONATE TAB 650 MG TABLET PO ×2 (08:28→21:31)
[2021-04-05] MEDS: FLECAINIDE ACETATE 50 MG TABLET PO ×2 (08:29→21:36)
[2021-04-05] MEDS: FLECAINIDE ACETATE 100 MG TABLET PO ×2 (08:29→21:32)
--- NOTE | 2021-04-05 11:05 | PCDIET ---
Nutrition follow up. Pt screened in for pressure ulcer and MST 5. See pervious note for MST score report. Per EMR, current diet is heart healthy with dietary supplement of ensure compact BID providing an additional 220kcal and 9g of protein to aid in wound healing. Per EMR, intake is 100% x3. Pt is tolerating current diet with adequate intake. Agree with current diet orders. Will follow and monitor labs, medication, wt, and intake every 5 days.
--- NOTE | 2021-04-05 12:29 | PM.IMPN ---
Progress Note: A&P Assessment and Plan (1) Acute kidney injury: Code(s): N17.9 - Acute kidney failure, unspecified Status: Acute Assessment and Plan: BUN 97 and Cr 2.0 on admission. He received IV fluids. Renal function better at 26 and 0.8 today. Perhaps secondary to poor intake as he appeared dry on exam. He also has a non-gap metabolic acidosis that is better with the oral bicarb. Renal US showing normal right kidney without hydronephrosis; absent left kidney. He was cautiously hydrated and now IV fluids off. Cr stable. Continue oral bicarb. He is eating better so will try to resume Lasix. (2) Hyperkalemia: Code(s): E87.5 - Hyperkalemia Status: Acute Assessment and Plan: Secondary to above. Lisinopril held and he did receive kayexalate once. Repeat potassium better at 4.4. Could be related to the acidosis. Cortisol and TSH levels okay. Continue to monitor. (3) Supratherapeutic INR: Code(s): R79.1 - Abnormal coagulation profile Status: Acute Assessment and Plan: INR 6.1 on admission. Warfarin was placed on hold. Repeat INR 7.8. No evidence of acute blood loss and Hgb stable at 12.5. INR better today at 4.4. Resume Coumadin once INR in the 3 range or transition to Xarelto. Care coordination consult. (4) Generalized weakness: Code(s): R53.1 - Weakness Status: Acute Assessment and Plan: He is chronically debilitated and has been bed-bound for 2 years due to orthopedic issues. He has been more weak at this time secondary to above. (5) Hypertension: Code(s): I10 - Essential (primary) hypertension Status: Inactive Assessment and Plan: Patient's blood pressure was reviewed on 04/05 Blood pressure remains well controlled. Will continue to monitor (6) Paroxysmal atrial fibrillation: Code(s): I48.0 - Paroxysmal atrial fibrillation Status: Acute Assessment and Plan: EKG showing NSR. Given the hyperkalemia and QTc 480, we held the flecanide. Warfarin on hold as INR was supratherapeutic. HR in the 50-60 range so we held metoprolol for now. EKG yesterday reviewed showing QTc 440 and potassium better so Flecanide resumed. EKG yesterday also showing T wave inversions in the anterior leads. Trop negative and no symptoms of chest pain. Echo showing EF 55-60% with Grade I diastolic dysfunction. Repeat EKG. (7) Person under investigation for COVID-19: Code(s): Z20.822 - Contact with and (suspected) exposure to COVID-19 Status: Acute Assessment and Plan: CXR on admission was limited. COVID negative Additional Plan Abd pain - nothing on exam but with abd pain after eating. He is status post cholecystectomy. Check obstructive series. Add lipase. 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 Patient is not on antibiotics on admission. The cefuroxime on his med list is not accurate. Patient is eating better. He does have abdominal pain when he eats. He is feeling better overall. He is having lose bowel movements. Bowel movements are difficult to control Exam Narrative: AF 97.6 114/67 74 17 94% ra Gen - NARD Chest - lungs clear anteriorly, nml RR CV - RRR S1/S2 Abd - Soft, obese, NT Ext - 3+ pitting and nonpitting pedal edema with tenderness Neuro - Alert and appropriate. Psych - nml mood and affect Skin - Warm and dry. Dry scaly skin in the lower extremities and feet. Left 2nd nail has come off and old blood noted around the bed. Objective Data Vital Signs Vital Signs: Vital Signs - 24 hr 04/04/21 14:00 04/04/21 14:13 04/04/21 14:15 Temperature 97.6 F Pulse Rate 65 62 62 Respiratory Rate 18 Blood Pressure 116/66 Pulse Oximetry 95 04/04/21 20:00 04/04/21 21:02 04/04/21 21:03 Temperature 96.5 F L
--- NOTE | 2021-04-05 12:48 | ECG_ITS ---
Measurements Intervals [place] Rate: 65 P: [place]: 0 QRS: -4 QRSD: 128 T: 85 QT: 461 QTc: 480 Interpretive Statements SINUS OR ECTOPIC ATRIAL RHYTHM WITH FIRST DEGREE AV BLOCK INTRAVENTRICULAR CONDUCTION DELAY MINIMAL Q WAVES- HIGH LATERAL LEADS BORDERLINE ST-T WAVE ABNORMALITY- ANT/HIGH LAT LEADS BASELINE WANDER- AVL, AVF, V4-V6 ABNORMAL ECG Electronically Signed On 04-05-2021 13:46:10 BACK JOINER by Byron Bhatia D.O.
[2021-04-05] MEDS: FUROSEMIDE 40 MG TABLET PO (15:16)
[2021-04-05] MEDS: EUCERIN CREAM 120 GM JAR 1 APPLIC TOPICAL ×2 (15:16→17:58)
[2021-04-05] MEDS: FAMOTIDINE 20 MG TABLET PO ×2 (15:16→21:32)
[2021-04-05] MEDS: calcium polycarbophiL 625 MG TABLET PO (17:58)
[2021-04-05] MEDS: TAMSULOSIN HCL 0.4 MG CAPSULE PO (17:58)
[2021-04-05] MEDS: DONEPEZIL HCL 10 MG TABLET PO (21:31)
[2021-04-06 06:00] VITALS: BP 106/69; PULSE 61; RESP 20; TEMP 36.4; O2SAT 96
[2021-04-06 07:10] LABS: Anion Gap 7 mmol/L (8-16); Blood Urea Nitrogen 19 mg/dL (9-20); Carbon Dioxide 21 mmol/L (22-30); Chloride 105 mmol/L (98-107); Estimated CRCL calculation 118 ml/min; Estimated Glomerular Filt Rate > 60; Glucose 111 mg/dL (65-110); Lipase 376 U/L (23-300); Potassium 4.2 mmol/L (3.4-5.0); Sodium 133 mmol/L (137-145)
[2021-04-06 07:18] LABS: INR 3.3; Prothrombin Time 32.7 Seconds (11.1-14.7)
--- NOTE | 2021-04-06 08:45 | PM.DS ---
DS: Admitting Diagnosis Discharge Date 04/06/21 Admitting Diagnosis Altered mental status DS: Discharge Diagnosis Discharge Diagnosis (1) Acute kidney injury: Code(s): N17.9 - Acute kidney failure, unspecified Status: Acute Assessment and Plan: BUN 97 and Cr 2.0 on admission. He received IV fluids. Renal function better at 19 and 0.8 today. Perhaps secondary to poor intake with ongoing Lasix use as he appeared dry on exam. He also has a non-gap metabolic acidosis that was treated with the oral bicarb. Renal US showing normal right kidney without hydronephrosis; absent left kidney. He was cautiously hydrated. IV fluids stopped and Cr continued to improve. Able to add back Lasix without issue. He is eating better. Repeat BMP in 1 week. (2) Hyperkalemia: Code(s): E87.5 - Hyperkalemia Status: Acute Assessment and Plan: Secondary to above. Lisinopril held and he did receive kayexalate once. Repeat potassium better at 4.42. Cortisol and TSH levels okay. (3) Ileus: Code(s): K56.7 - Ileus, unspecified Status: Acute Assessment and Plan: Patient was having mild abdominal pain with eating. Lipase 376 but doubt pancreatitis. KUB showing moderate to large amount of colonic gas. Suspect ileus from the electrolyte disturbance. He passed 3 stools and increased amount of flatus since and feels better. He is eating better this morning. (4) Supratherapeutic INR: Code(s): R79.1 - Abnormal coagulation profile Status: Acute Assessment and Plan: INR 6.1 on admission. Warfarin was placed on hold. Repeat INR 7.8. No evidence of acute blood loss and Hgb stable at 12 range. INR better today at 3.3. informatics coordinator was consulted and determined the cost of Xarelto. Family felt they could afford this so will transition from Warfarin to Xarelto. Given his trajectory, he should be subtherapeutic by 04/08. Will have family start this on 04/09. (5) Generalized weakness: Code(s): R53.1 - Weakness Status: Acute Assessment and Plan: He is chronically debilitated and has been bed-bound for 2 years due to orthopedic issues. He has been more weak at this time secondary to above. (6) Hypertension: Code(s): I10 - Essential (primary) hypertension Status: Inactive Assessment and Plan: Patient's blood pressure was monitored closely and remained well controlled. Some home medications were held (7) Paroxysmal atrial fibrillation: Code(s): I48.0 - Paroxysmal atrial fibrillation Status: Acute Assessment and Plan: EKG showing NSR. Given the hyperkalemia and QTc 480, we held the flecanide. Warfarin on hold as INR was supratherapeutic. HR in the 50-60 range so we held metoprolol for now. EKG reviewed showing QTc 440 and potassium better so Flecanide resumed. EKG also showed T wave inversions in the anterior leads but this has been seen in the past EKGs. Trop negative and no symptoms of chest pain. Echo showing EF 55-60% with Grade I diastolic dysfunction. (8) Person under investigation for COVID-19: Code(s): Z20.822 - Contact with and (suspected) exposure to COVID-19 Status: Acute Assessment and Plan: CXR on admission was limited. 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 Please see H&P for details Hospital Course: Please see above for details of hospital course Status at Discharge Cognitive/behavioral status at discharge: Stable Time Spent with Patient Time attestation: Total time spent providing and/or coordinating discharge services: 35 minutes Time spent: Greater than 30 minutes Specific discharge activities: Discussed with Exam Narrative: AF 97.5 106/69 61 20 96% ra Gen - NARD Chest - lungs clear anteri
[2021-04-06] MEDS: allopurinoL 300 MG TABLET PO (09:22)
[2021-04-06] MEDS: FAMOTIDINE 20 MG TABLET PO (09:22)
[2021-04-06 09:23] VITALS: PULSE 64
[2021-04-06] MEDS: calcium polycarbophiL 625 MG TABLET PO (09:23)
[2021-04-06] MEDS: FLECAINIDE ACETATE 50 MG TABLET PO (09:23)
[2021-04-06 09:24] VITALS: PULSE 64
[2021-04-06] MEDS: FLECAINIDE ACETATE 100 MG TABLET PO (09:24)
[2021-04-06] MEDS: SODIUM BICARBONATE TAB 650 MG TABLET PO (09:24)
[2021-04-06] MEDS: FUROSEMIDE 40 MG TABLET PO (09:24)
[2021-04-06 09:25] VITALS: PULSE 64; RESP 20; O2SAT 96
[2021-04-06] MEDS: EUCERIN CREAM 120 GM JAR 1 APPLIC TOPICAL (09:26)
[2021-04-06] MEDS: EUCERIN CREAM 454 GM JAR 1 APPLIC TOPICAL (10:15)
[2021-04-08 07:35] LABS: Osmolality, Urine 469 mOsm/kg (50-1200)
[2021-04-11 18:51] LABS: Chloride Rand Ur 29 mmol/L (32-290); Chloride/Creatinine Rand Ur 44 (23-275); Creatinine Random Urine 66 mg/dL (20-320)
== END 2021-04-06 15:25 | disposition home or self-care (01) | DRG 683 ==
LOC: ANHED 17:05 → ANH3MEDSUR 04-03 08:42
PROVIDERS: Physician Assistant; Admitting Provider Internal Medicine; Emergency Provider Emergency Medicine; PCP Nurse Practitioner Family; Visit Provider Internal Medicine
DX: N17.9 Acute kidney failure, unspecified (principal); K56.7 Ileus, unspecified; Z68.41 Body mass index [BMI] 40.0-44.9, adult; E87.2 Acidosis; E87.5 Hyperkalemia; R79.1 Abnormal coagulation profile; I10 Essential (primary) hypertension; Z20.822 Contact with and (suspected) exposure to COVID-19; G47.33 Obstructive sleep apnea (adult) (pediatric); I48.0 Paroxysmal atrial fibrillation; M19.90 Unspecified osteoarthritis, unspecified site; N40.0 Benign prostatic hyperplasia without lower urinary tract symptoms; K58.9 Irritable bowel syndrome, unspecified; I73.9 Peripheral vascular disease, unspecified; G62.9 Polyneuropathy, unspecified; G20 Parkinson's disease; K21.9 Gastro-esophageal reflux disease without esophagitis; D64.9 Anemia, unspecified; Z96.652 Presence of left artificial knee joint; Z66 Do not resuscitate; E86.0 Dehydration; I95.9 Hypotension, unspecified; F03.90 Unspecified dementia, unspecified severity, without behavioral disturbance, psychotic disturbance, mood disturbance, and anxiety; E66.9 Obesity, unspecified; T45.515A Adverse effect of anticoagulants, initial encounter; Z79.01 Long term (current) use of anticoagulants; Z87.11 Personal history of peptic ulcer disease; Z86.718 Personal history of other venous thrombosis and embolism; Z86.711 Personal history of pulmonary embolism; Z90.49 Acquired absence of other specified parts of digestive tract; Z90.5 Acquired absence of kidney
CPT/HCPCS: 36415; 71046; 74019; 76775; 80048; 80053; 80069; 80076; 81003; 82436; 82533; 82570; 83605; 83690; 83735; 83880; 83935; 84100; 84132; 84133; 84156; 84300; 84439; 84443; 84480; 84484; 85025; 85027; 85055; 85610; 85999; 86140; 87426; 92610; 93005; 93306; 96360; 96361; 99285; A9270; C9803; J7030; J7120; U0003; U0005

== ENCOUNTER 2021-11-10 19:32 | Emergency (ER) | payer MEDICARE, SELFPAY ==
[2021-11-10] VITALS (36 sets, daily range): BP systolic 127–162; BP diastolic 77–101; PULSE 64–79; RESP 12–25; TEMP 36.3; O2SAT 90–94
--- NOTE | ~2021-11-10 | XR_ITS ---
EXAMINATION: XR chest 1V portable Exam Date/Time: 11/10/2021 19:50 CDT HISTORY: CP X TODAY, HX PE, HX HTN, HX AFIB, HX PERICARDITIS Comparison: 04/02/2021. RESULT: Lines, tubes, and devices: None. Lungs and pleura: Low lung volumes. Right hemidiaphragm elevation. Cardiomediastinal silhouette: Mostly obscured, grossly stable. Other: No acute osseous or upper abdominal finding. IMPRESSION: No acute cardiopulmonary process. Reviewed, dictated and finalized at location K.
--- NOTE | 2021-11-10 19:37 | ECG_ITS ---
Measurements Intervals [place] Rate: 78 P: 81 [place]: 219 QRS: 24 QRSD: 126 T: 53 QT: 314 QTc: 359 Interpretive Statements SINUS RHYTHM WITH FIRST DEGREE AV BLOCK INTRAVENTRICULAR CONDUCTION DELAY MINIMAL Q WAVES- ANTEROLAT/HIGH LAT LEADS BORDERLINE T WAVE ABNORMALITY- ANTERIOR LEADS BASELINE ARTIFACT- I, III, AVR, AVL, AVF ABNORMAL ECG Electronically Signed On 11-10-2021 20:52:54 CDT by Byron Bhatia D.O.
--- NOTE | 2021-11-10 19:39 | ED.GENADULT ---
HPI - General Adult General Chief complaint: Chest Pain Stated complaint: CP/PRODUCTIVE COUGH Time Seen by Provider: 11/10/21 19:36 History of Present Illness HPI narrative: 71-year-old male presented to the emergency department for evaluation of chest pain. Patient states he started developing chest pain that was substernal/epigastric that radiated to his left chest. Pain started at 630 and resolved. Patient is bedbound at home with home health care. Patient has chronic right knee pain that is unchanged today. Patient denies any other complaints at this time. Related Data Home Medications Medication Instructions Recorded Confirmed acetaminophen 500 mg tablet 500 mg PO Q6H PRN Pain 09/28/19 04/03/21 donepezil 10 mg tablet 10 mg PO HS 04/03/21 04/03/21 Allergies Allergy/AdvReac Type Severity Reaction Status Date / Time ampicillin Allergy Unknown Hives Verified 11/10/21 19:47 iodine Allergy Unknown Hives Verified 11/10/21 19:47 Penicillins Allergy Unknown Hives Verified 11/10/21 19:47 Contrast Media Allergy Severe hives Uncoded 11/10/21 19:47 Review of Systems Review of Systems: CONSTITUTIONAL: Denies fever, chills, or sweats. EYES: Denies visual changes, redness, or discharge. ENT: Denies rhinorrhea, congestion, sore throat, or otalgia. CARDIOVASCULAR: Epigastric/substernal chest pain. Resolved RESPIRATORY: Denies cough or dyspnea. GASTROINTESTINAL: Denies abdominal pain, nausea, vomiting, or diarrhea. GENITOURINARY: Denies dysuria or hematuria. SKIN: Denies rash or itching. MUSCULOSKELETAL: Chronic knee pain NEUROLOGIC: Denies headache, numbness, or weakness. [facility] Past Medical History Medical History (Updated 11/11/21 @ 04:55 by Mike Ramirez MD) Anxiety Arthritis Benign prostatic hyperplasia Bilateral ankle fractures Borderline diabetes Chronic anemia Chronic anticoagulation Deep venous thrombosis Dementia Depression Gastroesophageal reflux disease Gout History of peptic ulcer History of pericarditis Hypertension Irritable bowel syndrome Kidney stones Obstructive sleep apnea on CPAP Osteomyelitis Parkinsons disease Paroxysmal atrial fibrillation Pericarditis Peripheral neuropathy Peripheral vascular disease Pneumonia Pulmonary embolism Surgical History Surgical History History of appendectomy History of arthroplasty of left knee History of arthroscopic knee surgery History of cardiac catheterization History of cholecystectomy History of ERCP History of inguinal hernia repair History of left knee replacement History of left nephrectomy (1956) History of umbilical hernia repair Family History Family History Mother Hypertension, Onset Age: 79 Family history of diabetes mellitus in first degree relative, Onset Age: 79 Family history of arthritis, Onset Age: 79 Family history of congestive heart failure, Onset Age: 79 Sibling Hypertension Carcinoma of colon Father Hypertension, Onset Age: 80 Family history of Parkinson's disease Family history of Alzheimer's disease, Onset Age: 80 Family history of diabetes mellitus in first degree relative, Onset Age: 80 Carcinoma of colon Social History Social History (Updated 04/02/21 @ 22:58 by Ananya Mann PA-C) Social History: The patient is and lives with his in [place]. 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 They have 2 children. He is retired from [employer]. Lifelong nonsmoker. No alcohol or illicit substance abuse. His , Araceli Zamora, as his surrogate decision-maker and he wishes to be a DNR. Smoking status: Never smoker Alcohol intake: former Substance use: never Spiritual care concerns: No Exam Narrative: APPEARANCE: Obese HEAD: normocephalic, atraumatic. EYES: PERRLA/EOMI, conjunctivae clear. NOSE: No
[2021-11-10 20:30] LABS: Appearance Urine Cloudy (Clear); Basophils Percent Auto 0.5 % (0.2-1.2); Bilirubin Urine Negative (Negative); Blood Urine Negative (Negative); Color Urine Yellow (Yellow); Eosinophils Absolute Auto 0.2 K/mm3 (0-0.3); Eosinophils Percent Auto 3.3 % (0-4.4); Glucose Urine UA Negative (Negative); Hematocrit 46.6 % (42.0-52.0); Hemoglobin 14.3 g/dL (14.0-18.0); Immature Granulocyte Absolute 0.01 K/mm3 (0.00-0.031); Immature Granulocyte Percent A 0.2 % (0-0.5); Ketones Urine Negative (Negative); Leukocyte Esterase Ur 3+ LEU/UL (Negative); Lymphocytes Percent Auto 14.5 % (18.3-44.2); Mean Corpuscular HGB Conc 30.7 g/dl (32-36); Mean Corpuscular Hemoglobin 28.1 pg (26-34); Mean Corpuscular Volume 91.6 fl (80-100); Mean Platelet Volume 9.8 fl (7.4-10.4); Monocytes Absolute Auto 0.4 K/mm3 (0.1-0.6); Monocytes Percent Auto 6.5 % (2.6-8.5); Neutrophils Absolute Auto 4.1 K/mm3 (1.3-6.7); Nitrate Urine Positive (Negative); Platelet Count Result 185 k/mm3 (150-375); Protein Urine Negative (Negative); Red Blood Count 5.09 M/mm3 (4.6-6.20); Red Cell Distribution Width 14.5 % (11.5-14.5); Specific Grav Ur 1.025 (1.001-1.035); Urobilinogen Urine 0.2 mg/dL (<2.0); White Blood Count 5.5 K/mm3 (4.5-10.0); pH Urine 5.5 (5.0-9.0)
[2021-11-10 20:49] LABS: Add Urine Microscopic? YES; Bacteria Urine 2+ /hpf; Mucus Urine Rare /lpf; Squamous Epithelial Cell Urine Few /hpf (Few); WBC Urine 51-75 /hpf
[2021-11-10 20:50] LABS: Alanine Aminotransferase 10 U/L (6-50); Albumin Level 4.1 g/dL (3.5-5.1); Alkaline Phosphatase 160 U/L (38-126); Anion Gap 11 mmol/L (8-16); Aspartate Amino Transferase 21 U/L (17-59); Bilirubin,Total 0.5 mg/dL (0.2-1.3); Blood Urea Nitrogen 20 mg/dL (9-20); Calcium 9.2 mg/dL (8.4-10.2); Carbon Dioxide 31 mmol/L (22-30); Chloride 99 mmol/L (98-107); Estimated CRCL calculation 176 ml/min; Estimated Glomerular Filt Rate > 60; Glucose 169 mg/dL (65-110); Potassium 3.7 mmol/L (3.4-5.0); Sodium 141 mmol/L (137-145)
[2021-11-10 20:58] LABS: NT Pro B Type Natriuretic Pept 48 pg/mL (5-100); Troponin I < 0.012 ng/mL (0.000-0.034)
[2021-11-10 23:12] LABS: Troponin I < 0.012 ng/mL (0.000-0.034)
[2021-11-11] VITALS (13 sets, daily range): BP systolic 126–156; BP diastolic 85–97; PULSE 65–73; RESP 14–29; O2SAT 90–94
--- NOTE | 2021-11-11 03:31 | PC.NURSE ---
[facility] crew here to chart picker pt. Lulu BELLE called to help with lift assist into ambulance.
== END 2021-11-11 03:42 | disposition home or self-care (01) ==
PROVIDERS: Emergency Provider Emergency Medicine; PCP Nurse Practitioner Family
DX: R07.2 Precordial pain (principal); N39.0 Urinary tract infection, site not specified; F03.90 Unspecified dementia, unspecified severity, without behavioral disturbance, psychotic disturbance, mood disturbance, and anxiety; I10 Essential (primary) hypertension; N40.0 Benign prostatic hyperplasia without lower urinary tract symptoms; R73.03 Prediabetes; D64.9 Anemia, unspecified; Z87.442 Personal history of urinary calculi; G47.33 Obstructive sleep apnea (adult) (pediatric); G20 Parkinson's disease; I73.9 Peripheral vascular disease, unspecified; I48.0 Paroxysmal atrial fibrillation; G62.9 Polyneuropathy, unspecified; K21.9 Gastro-esophageal reflux disease without esophagitis; K58.9 Irritable bowel syndrome, unspecified; M86.9 Osteomyelitis, unspecified; M10.9 Gout, unspecified; M25.561 Pain in right knee; G89.29 Other chronic pain; Z87.11 Personal history of peptic ulcer disease; Z86.711 Personal history of pulmonary embolism; Z96.652 Presence of left artificial knee joint; Z90.5 Acquired absence of kidney; Z66 Do not resuscitate; Z79.01 Long term (current) use of anticoagulants; I44.0 Atrioventricular block, first degree; I45.9 Conduction disorder, unspecified; R94.31 Abnormal electrocardiogram [ECG] [EKG]
CPT/HCPCS: 36415; 71045; 80053; 81001; 83880; 84484; 85025; 87077; 87086; 87186; 93005; 99284; A9270

== ENCOUNTER 2022-04-02 17:23 | Outpatient (NON) | payer MEDICARE, SELFPAY ==
[2022-04-02 17:39] LABS: Add Urine Microscopic? YES; Appearance Urine Cloudy (Clear); Bilirubin Urine Negative (Negative); Blood Urine Trace-Intact (Negative); Color Urine Light Yellow (Yellow); Glucose Urine UA Negative (Negative); Ketones Urine Negative (Negative); Leukocyte Esterase Ur 3+ (Negative); Nitrate Urine Positive (Negative); Protein Urine Negative (Negative); Specific Grav Ur 1.015 (1.010-1.020)
[2022-04-02 17:51] LABS: Bacteria Urine 4+ /hpf; RBC Urine 0-2 /hpf (0-2); Squamous Epithelial Cell Urine Few /hpf (Few); WBC Urine >75 /hpf (0-3)
== END 2022-04-02 17:24 | disposition home or self-care (01) ==
LOC: CHSLAB 17:25
PROVIDERS: Visit Provider Nurse Practitioner Family
DX: N39.0 Urinary tract infection, site not specified (principal)
CPT/HCPCS: 81001

== ENCOUNTER 2022-10-09 15:53 | Inpatient (IN) | payer MEDICARE, SELFPAY ==
--- NOTE | ~2022-10-09 | CT_ITS ---
EXAMINATION: CT abdomen pelvis wo con DATE: 10/09/2022 16:41 INDICATION: Diffuse abdominal pain TECHNIQUE: Computed tomography (CT) of the abdomen and pelvis was performed without intravenous contr ast. Automated exposure control and iterative reconstruction technique were employed. The dose-length product was 2042.58 mGy-cm. COMPARISON: 03/02/2019. FINDINGS: Significant motion artifact. Beam hardening artifact in the upper abdomen from arm position. Lower thorax: Right hemidiaphragm elevation. Right lower lobe atelectasis. Mild aortic calcification and ectasia. Coronary artery calcifications. Dilated central pulmonary arteries as can be seen with p ulmonary arterial hypertension. Liver: Normal. Biliary/Gallbladder: Gallbladder is absent. No bile duct dilation. Pancreas: Scattered calcifications may represent chronic pancreatitis or vascular calcifications. Mod erate atrophy. Spleen: Normal. Adrenals:No mass. Kidneys: Surgically absent left kidney. Simple right renal cysts. Mild right perinephric stranding. N o obstructing calcification or hydronephrosis. GI tract: Moderate hiatal hernia No small or large bowel dilation. Appendix not confidently visualize d, likely surgically absent. Mesentery/Peritoneum: No ascites, mass, or free air. Retroperitoneum: No mass. Atherosclerotic abdominal aortic and/or arterial calcifications. Pelvis: The rectum is dilated to 7.9 cm by formed stool, with mild wall thickening and surrounding in flammatory change. Bladder wall thickening and inflammatory change. Dilated left ureteral stump. Soft Tissues: Soft tissues and body wall unremarkable. Bones: No acute osseous finding. IMPRESSION: Exam limited by motion and beam hardening from arm position. 1. Fecal impaction with findings concerning for early stercoral colitis. 2. Urinary bladder wall thickening and inflammatory change may represent cystitis in the appropriate clinical context. Reviewed, dictated and finalized at location K. IMPRESSION: Exam limited by motion and beam hardening from arm position. 1. Fecal impaction with findings concerning for early stercoral colitis. 2. Urinary bladder wall thickening and inflammatory change may represent cystit is in the appropriate clinical context.
--- NOTE | ~2022-10-09 | XR_ITS ---
EXAMINATION: XR chest 1V portable Exam Date/Time: 10/09/2022 16:14 CDT HISTORY: weakness Comparison: 11/10/2021. RESULT: Lines, tubes, and devices: Cholecystectomy clips. Lungs and pleura: Mild diffuse reticular opacities, with bibasilar scar/atelectasis. Persistent sign ificant right hemidiaphragm elevation. A curvilinear lucency projecting under the left hemidiaphragm in one view is likely related to artifact from eventration and not pneumoperitoneum. Cardiomediastinal silhouette: Stable. Other: No acute osseous or upper abdominal finding. IMPRESSION: Mild interstitial edema. Persistent right hemidiaphragm elevation. Reviewed, dictated and finalized at location K.
--- NOTE | ~2022-10-09 | XR_ITS ---
EXAM: XR knee RT 3V DATE: 10/09/2022 16:22 HISTORY: Chronic pain . COMPARISON: 11/30/2018. FINDINGS: Examination limited by portable technique and difficulty positioning for standard views. S everely decreased mineralization. No fracture. Increased lateral joint space widening and lateral sub luxation of the tibia relative to the femur. Severe medial joint space narrowing. Old medial tibial p lateau fracture. IMPRESSION: Limited examination. Severe osteopenia. Old medial tibial plateau fracture. Increased tib ial subluxation may indicate ligamentous injury, which may be acute or chronic. Reviewed, dictated and finalized at location K. IMPRESSION: Limited examination. Severe osteopenia. Old medial tibial plateau f racture. Increased tibial subluxation may indicate ligamentous injury, which ma y be acute or chronic.
[2022-10-09 15:54] VITALS: BP 121/75; PULSE 68; RESP 22; TEMP 36.6; O2SAT 93
--- NOTE | 2022-10-09 15:58 | ED.WEAKNESS ---
HPI - Weakness General Chief complaint: Weakness Stated complaint: weakness Time Seen by Provider: 10/09/22 15:58 Source: patient and EMS Mode of arrival: EMS Limitations: clinical condition History of Present Illness HPI Narrative: 72 years old white female came from home by ambulance because of general weakness for the last few days. Currently on antibiotic for urinary tract infection. Currently complaining of abdominal pain and right knee pain. Which is chronic. No recent trauma. Patient is bedridden Related Data Home Medications Medication Instructions Recorded Confirmed acetaminophen 500 mg tablet 500 mg PO Q6H PRN Pain 09/28/19 04/03/21 donepezil 10 mg tablet 10 mg PO HS 04/03/21 04/03/21 Allergies Allergy/AdvReac Type Severity Reaction Status Date / Time ampicillin Allergy Unknown Hives Verified 11/10/21 19:47 iodine Allergy Unknown Hives Verified 11/10/21 19:47 Penicillins Allergy Unknown Hives Verified 11/10/21 19:47 Contrast Media Allergy Severe hives Uncoded 11/10/21 19:47 Review of Systems Review of Systems: All systems reviewed & are unremarkable except as noted in HPI and below PMFSH Past Medical History Medical History Anxiety Arthritis Benign prostatic hyperplasia Bilateral ankle fractures Borderline diabetes Chronic anemia Chronic anticoagulation Deep venous thrombosis Dementia Depression Gastroesophageal reflux disease Gout History of peptic ulcer History of pericarditis Hypertension Irritable bowel syndrome Kidney stones Obstructive sleep apnea on CPAP Osteomyelitis Parkinsons disease Paroxysmal atrial fibrillation Pericarditis Peripheral neuropathy Peripheral vascular disease Pneumonia Pulmonary embolism Surgical History Surgical History History of appendectomy History of arthroplasty of left knee History of arthroscopic knee surgery History of cardiac catheterization History of cholecystectomy History of ERCP History of inguinal hernia repair History of left knee replacement History of left nephrectomy (1956) History of umbilical hernia repair Family History Family History Mother Hypertension, Onset Age: 79 Family history of diabetes mellitus in first degree relative, Onset Age: 79 Family history of arthritis, Onset Age: 79 Family history of congestive heart failure, Onset Age: 79 Sibling Hypertension Carcinoma of colon Father Hypertension, Onset Age: 80 Family history of Parkinson's disease Family history of Alzheimer's disease, Onset Age: 80 Family history of diabetes mellitus in first degree relative, Onset Age: 80 Carcinoma of colon Social History Social History Social History: The patient is and lives with his in [place]. 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 They have 2 children. He is retired from [employer]. Lifelong nonsmoker. No alcohol or illicit substance abuse. His , Araceli Zamora, as his surrogate decision-maker and he wishes to be a DNR. Smoking status: Never smoker Alcohol intake: former Substance use: never Spiritual care concerns: No Exam Narrative: General appearance: Well-developed, well-nourished, ill looking Skin: Pale Head: Normocephalic, nontraumatic Eyes: Clear conjunctiva ENT: Oropharynx normal, ears normal, nose normal Neck: Supple, nontender Chest and respiratory: Airway patent, no respiratory distress, no accessory muscle use Heart: Regular rate/rhythm Abdomen: Soft, diffuse tenderness Vascular: Normal peripheral pulses, normal capillary refill. Musculoskeletal: Right knee deformity Neurologic: Alert and oriented ?3, BOREMATIC MACHINE OPERATOR is normal as tested, no gross motor deficit
--- NOTE | 2022-10-09 15:59 | ECG_ITS ---
Measurements Intervals [place] Rate: 68 P: 71 [place]: 223 QRS: -31 QRSD: 118 T: 83 QT: 403 QTc: 430 Interpretive Statements SINUS RHYTHM WITH FIRST DEGREE AV BLOCK MARKED LEFT AXIS DEVIATION [QRS AXIS < -30] PROBABLE LATERAL MYOCARDIAL INFARCTION , OF INDETERMINATE AGE [35 ms Q WAVE IN I/aVL/V5/V6] COMPARED TO ECG 11/10/2021 19:42:27 NO SIGNIFICANT CHANGES Electronically Signed On 10-09-2022 16:07:52 CDT by Amie Tsang M.D.
[2022-10-09] MEDS: SODIUM CHLORIDE 0.9% IV 1,000 ML 999 ML IV CONT (16:10)
[2022-10-09 16:57] LABS: Basophils Percent Auto 0.1 % (0.2-1.2); Hematocrit 45.6 % (42.0-52.0); Hemoglobin 14.2 g/dL (14.0-18.0); Immature Granulocyte Absolute 0.12 K/mm3 (0.00-0.031); Immature Granulocyte Percent A 0.8 % (0-0.5); Lymphocytes Absolute Auto 0.63 K/mm3 (0.9-3.2); Lymphocytes Percent Auto 4.2 % (18.3-44.2); Mean Corpuscular HGB Conc 31.1 g/dl (32-36); Mean Corpuscular Volume 89.8 fl (80-100); Mean Platelet Volume 10.1 fl (7.4-10.4); Monocytes Absolute Auto 0.8 K/mm3 (0.1-0.6); Monocytes Percent Auto 5.7 % (2.6-8.5); Neutrophils Absolute Auto 13.2 K/mm3 (1.3-6.7); Neutrophils Percent Auto 89.2 % (45.5-73.1); Platelet Count Result 164 k/mm3 (150-375); Red Blood Count 5.08 M/mm3 (4.6-6.20); Red Cell Distribution Width 14.8 % (11.5-14.5); White Blood Count 14.9 K/mm3 (4.5-10.0)
[2022-10-09 17:00] VITALS: BP 118/68; PULSE 62; RESP 20; O2SAT 93
[2022-10-09 17:09] LABS: Lactic Acid Reflex 1.3 mmol/L (0.7-2.0)
[2022-10-09 17:14] LABS: Platelet Clumps Present; Platelet Estimate Adequate (Adequate); Schistocytes None Seen (NORMAL)
[2022-10-09 17:15] VITALS: O2SAT 88; O2SAT 95
--- NOTE | 2022-10-09 17:17 | PC.NURSE ---
pt unable to provide urine sample at this time. pt refusing straight cath. urinal at bedside and pt made aware a urine sample is needed.
[2022-10-09 17:20] LABS: INR 1.8; Prothrombin Time 22.4 Seconds (11.1-14.7)
[2022-10-09 17:21] LABS: Partial Thromboplastin Time 46.9 SECONDS (22.3-36.8)
[2022-10-09 17:32] LABS: Alanine Aminotransferase 12 U/L (6-50); Albumin Level 3.8 g/dL (3.5-5.1); Alkaline Phosphatase 115 U/L (38-126); Anion Gap 2 mmol/L (8-16); Aspartate Amino Transferase 17 U/L (17-59); Blood Urea Nitrogen 15 mg/dL (9-20); Calcium 8.4 mg/dL (8.4-10.2); Carbon Dioxide 37 mmol/L (22-30); Chloride 98 mmol/L (98-107); Estimated CRCL calculation 232 ml/min; Estimated Glomerular Filt Rate > 60; Glucose 176 mg/dL (65-110); Lipase 40 U/L (23-300); Potassium 3.2 mmol/L (3.4-5.0); Sodium 137 mmol/L (137-145)
[2022-10-09 17:37] LABS: CRP 18.2 mg/dL (<1.0)
[2022-10-09 19:12] VITALS: BP 115/65; PULSE 60; RESP 18; O2SAT 93
[2022-10-09] MEDS: POTASSIUM CHLORIDE 20 MEQ ER TABLET 40 MEQ PO (19:19)
[2022-10-09 19:22] LABS: Appearance Urine Cloudy (Clear); Bacteria Urine 1+ /hpf; Bilirubin Urine 1+ (Negative); Blood Urine 1+ (Negative); Color Urine Dark Yellow (Yellow); Glucose Urine UA Negative (Negative); Ketones Urine Negative (Negative); Leukocyte Esterase Ur 3+ LEU/UL (Negative); Need Manual Microscopic Reviewed; Nitrate Urine Positive (Negative); Protein Urine 1+ mg/dL (Negative); RBC Urine 0-2 /hpf (0-2); Specific Grav Ur 1.021 (1.001-1.035); Squamous Epithelial Cell Urine None seen /hpf (Few); WBC Urine >100 /hpf; pH Urine 5.5 (5.0-9.0)
[2022-10-09 19:23] LABS: Add Urine Microscopic? YES
[2022-10-09 20:37] VITALS: BP 113/61; PULSE 68; RESP 18; O2SAT 96
[2022-10-09] MEDS: SODIUM CHLORIDE 0.9% IV 1,000 ML 75 ML IV CONT ×2 (20:47→23:00)
--- NOTE | 2022-10-09 21:25 | PM.IMHP ---
H&P: HPI History of Present Illness Date/Time: 10/09/22 21:25 Chief Complaint: Weakness. Narrative: This is a 72-year-old male with paroxysmal atrial fibrillation on anticoagulation, hypertension, hyperlipidemia, sleep apnea, benign prostatic hyperplasia,? and history of DVT and pulmonary embolism who presented to the emergency department via EMS from home for evaluation of weakness. He is not the best historian and a majority of the following history is obtained via a review of his EMR as well as information obtained from his . He is chronically ill and bed ridden. The last several days he has been increasingly weak and less interactive. According to the , he was diagnosed with urinary tract infection and he has been taking antibiotics without improvement. She called 911 today as he was complaining of abdominal pain and right knee pain, both which are chronic for him. He was afebrile on arrival to the emergency department with stable vital signs. Labs were significant for a WBC count of 14.9 potassium 3.2, lactic acid 1.3, bilirubin 2.0, CRP 18.2. Urine was nitrate positive with 3+ leukocyte esterase, 1+ bacteria, greater than [address] of the abdomen and pelvis showed fecal impaction with findings concerning for early stercoral colitis and urinary bladder wall thickening. Chest x-ray showed mild interstitial edema. Right knee x-ray showed severe osteopenia in old medial tibial plateau fracture and increased tibial subluxation which may indicate ligamentous injury, acute or chronic. In the ED he received a L of normal saline was given a dose of ceftriaxone. He has been admitted to the floor for further treatment of UTI and weakness. At the time my evaluation he does not have any specific complaints and he denies fever, chills, sweats, chest pain, shortness a breath, nausea, vomiting, diarrhea, abdominal pain, low back pain, and dysuria (he is forgetful however thus the accuracy of his answers is questionable) Review of Systems Review of Systems: Twelve systems were reviewed and are negative except for as per HPI. [facility] Past Medical History Medical History (Updated 10/09/22 @ 21:32 by Ananya Mann PA-C) Anxiety Arthritis Benign prostatic hyperplasia Bilateral ankle fractures Borderline diabetes Chronic anemia Chronic anticoagulation Deep venous thrombosis Dementia Depression Gastroesophageal reflux disease Gout History of peptic ulcer History of pericarditis Hypertension Irritable bowel syndrome Kidney stones Obstructive sleep apnea on CPAP Osteomyelitis Parkinsons disease Paroxysmal atrial fibrillation Peripheral neuropathy Peripheral vascular disease Pneumonia Pulmonary embolism Surgical History Surgical History History of appendectomy History of arthroplasty of left knee History of arthroscopic knee surgery History of cardiac catheterization History of cholecystectomy History of ERCP History of inguinal hernia repair History of left knee replacement History of left nephrectomy (1956) History of umbilical hernia repair Family History Family History Mother Hypertension, Onset Age: 79 Family history of diabetes mellitus in first degree relative, Onset Age: 79 Family history of arthritis, Onset Age: 79 Family history of congestive heart failure, Onset Age: 79 Sibling Hypertension Carcinoma of colon Father Hypertension, Onset Age: 80 Family history of Parkinson's disease Family history of Alzheimer's disease, Onset Age: 80 Family history of diabetes mellitus in first degree relative, Onset Age: 80 Carcinoma of colon Social History Social History Social History: The patient is and lives with his in [place]. He has been bed-bound for approximately 2 years and his is his primary caret
[2022-10-09 22:17] VITALS: BMI 39.9
--- NOTE | 2022-10-09 22:29 | ADMGEN ---
At 2130, this patient, Jorge Zamora, was admitted to [facility] Patient/family oriented to hospital policies and general routines including ID bracelet, bed and alarms, visiting hours, pain management, procedures, bathroom and other care routines, personal items, smoking policy, room service/diet, and visiting hours. Information on how to activate the Rapid Response Team has been discussed. Patient/Family are encouraged to report perceived risks to care and to ask questions if they do not understand what they are told or what they should do.
[2022-10-09 22:30] VITALS: BP 116/57; PULSE 60; RESP 20; TEMP 35.9; O2SAT 96
[2022-10-10] VITALS (7 sets, daily range): BP systolic 102–115; BP diastolic 63–68; PULSE 57–96; RESP 16–20; TEMP 36.1–36.8; O2SAT 93–95; BMI 40.2
[2022-10-10] MEDS: polyethylene glycoL 3350 17 GM POWD.PACK PO ×2 (00:29→08:51)
[2022-10-10 04:20] LABS: Hematocrit 44.3 % (42.0-52.0); Hemoglobin 13.8 g/dL (14.0-18.0); Mean Corpuscular HGB Conc 31.2 g/dl (32-36); Mean Corpuscular Hemoglobin 27.9 pg (26-34); Mean Corpuscular Volume 89.7 fl (80-100); Mean Platelet Volume 9.8 fl (7.4-10.4); Platelet Count Result 146 k/mm3 (150-375); Red Blood Count 4.94 M/mm3 (4.6-6.20); Red Cell Distribution Width 14.7 % (11.5-14.5); White Blood Count 11.2 K/mm3 (4.5-10.0)
[2022-10-10 04:31] LABS: Anion Gap 4 mmol/L (8-16); Blood Urea Nitrogen 14 mg/dL (9-20); Calcium 8.1 mg/dL (8.4-10.2); Carbon Dioxide 35 mmol/L (22-30); Chloride 99 mmol/L (98-107); Estimated CRCL calculation 197 ml/min; Estimated Glomerular Filt Rate > 60; Glucose 123 mg/dL (65-110); Sodium 138 mmol/L (137-145)
[2022-10-10 04:37] LABS: Magnesium 2.1 mg/dL (1.6-2.3)
[2022-10-10] MEDS: allopurinoL 300 MG TABLET PO (08:50)
[2022-10-10] MEDS: FLECAINIDE ACETATE 50 MG TABLET 150 MG PO ×2 (08:50→21:27)
[2022-10-10] MEDS: FOLIC ACID 1 MG TABLET PO (08:51)
[2022-10-10] MEDS: MEMANTINE 5 MG TABLET PO ×2 (08:51→17:55)
[2022-10-10] MEDS: ESCITALOPRAM OXALATE 10 MG TABLET PO (08:51)
[2022-10-10] MEDS: POTASSIUM CHLORIDE 20 MEQ ER TABLET 40 MEQ PO (08:51)
[2022-10-10] MEDS: FUROSEMIDE 40 MG TABLET PO (08:51)
[2022-10-10] MEDS: POTASSIUM CHLORIDE 20 MEQ ER TABLET PO (08:51)
--- NOTE | 2022-10-10 11:40 | PC.NURSE ---
Transfer received from 342 to room 253. Patient oriented to the unit.
--- NOTE | 2022-10-10 12:49 | WPDPN ---
Progress Note: A&P Assessment and Plan (1) Urinary tract infection: Qualifiers: Hematuria presence: without hematuria Urinary tract infection type: acute cystitis Qualified Code(s): N30.00 - Acute cystitis without hematuria Code(s): N39.0 - Urinary tract infection, site not specified Status: Acute (2) Fecal impaction: Code(s): K56.41 - Fecal impaction Status: Acute (3) Right knee pain: Code(s): M25.561 - Pain in right knee Status: Acute (4) Elevated bilirubin: Code(s): R17 - Unspecified jaundice Status: Acute (5) Hypokalemia: Code(s): E87.6 - Hypokalemia Status: Acute (6) Paroxysmal atrial fibrillation: Code(s): I48.0 - Paroxysmal atrial fibrillation Status: Acute (7) Chronic anticoagulation: Code(s): 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 Labs, imaging, EKG, and all reports were personally reviewed. He was recently started on antibiotics for urinary tract infection however has not noticed any improvement. Urinalysis today still looks grossly infected. He has been started on ceftriaxone, pending urine culture. Potassium is low and will be replaced and monitored. CT shows evidence of fecal impaction with possible early stercoral colitis. Soapsuds enema ordered. Start MiraLax daily. Right knee x-ray noted, he is bed-bound and has had no recent falls thus this is not likely an acute issue. Analgesics are available as needed. Total bilirubin is a bit elevated though his other LFTs are well within normal limits. CT of the abdomen/pelvis did not show any acute findings of the biliary tree. Repeat LFTs in a.m.. He is in a sinus rhythm. Continue flecainide. Also continue Xarelto for stroke prophylaxis. Blood pressures were reviewed and they have been stable. His home medications will be reviewed and resumed as appropriate. Findings and treatment plan were discussed with the patient and his . Questions were solicited and answered to satisfaction. 10/10/2022 interval history: 72 y/o male presented with weakness and dysuria and found to have significant constipation, patient did have BM today and stats feesl better, his weakness most likely stemming from constipations and UTI, patient is being treated with ceftriaxone will follow up on urine culture, will have PT/OT evaluate the patient, patient will benefit going to acute rehab, will continue to monitor. Subjective Date/time seen: 10/10/22 12:49 Interval history: Weakness. Narrative: This is a 72-year-old male with paroxysmal atrial fibrillation on anticoagulation, hypertension, hyperlipidemia, sleep apnea, benign prostatic hyperplasia,? and history of DVT and pulmonary embolism who presented to the emergency department via EMS from home for evaluation of weakness. He is not the best historian and a majority of the following history is obtained via a review of his EMR as well as information obtained from his . He is chronically ill and bed ridden. The last several days he has been increasingly weak and less interactive. According to the , he was diagnosed with urinary tract infection and he has been taking antibiotics without improvement. She called 911 today as he was complaining of abdominal pain and right knee pain, both which are chronic for him. He was afebrile on arrival to the emergency department with stable vital signs. Labs were significant for a WBC count of 14.9 potassium 3.2, lactic acid 1.3, bilirubin 2.0, CRP 18.2. Urine was nitrate positive with 3+ leukocyte esterase, 1+ bacteria, greater than [address] of the abdomen and pelvis showed fecal impaction with findings concerning for early stercoral colitis and urinary bladder wall thickenin
[2022-10-10] MEDS: SILVERGEL (ELTA) 45 ML 1 APPLIC TOPICAL (14:28)
[2022-10-10] MEDS: TAMSULOSIN HCL 0.4 MG CAPSULE PO (17:55)
[2022-10-10] MEDS: RIVAROXABAN 20 MG TABLET PO (17:55)
[2022-10-10] MEDS: ACETAMINOPHEN 500 MG TABLET PO (18:07)
[2022-10-10] MEDS: DONEPEZIL HCL 10 MG TABLET PO (21:27)
[2022-10-11] VITALS (7 sets, daily range): BP systolic 116–142; BP diastolic 59–82; PULSE 70–74; RESP 16–18; TEMP 36.3–36.8; O2SAT 93–94
[2022-10-11] MEDS: allopurinoL 300 MG TABLET PO (08:26)
[2022-10-11] MEDS: FLECAINIDE ACETATE 50 MG TABLET 150 MG PO ×2 (08:26→20:21)
[2022-10-11] MEDS: polyethylene glycoL 3350 17 GM POWD.PACK PO (08:27)
[2022-10-11] MEDS: FUROSEMIDE 40 MG TABLET PO (08:27)
[2022-10-11] MEDS: SILVERGEL (ELTA) 45 ML 1 APPLIC TOPICAL (08:27)
[2022-10-11] MEDS: MEMANTINE 5 MG TABLET PO ×2 (08:27→18:18)
[2022-10-11] MEDS: FOLIC ACID 1 MG TABLET PO (08:27)
[2022-10-11] MEDS: ESCITALOPRAM OXALATE 10 MG TABLET PO (08:27)
--- NOTE | 2022-10-11 09:52 | WPDPN ---
Progress Note: A&P Assessment and Plan (1) Urinary tract infection: Qualifiers: Hematuria presence: without hematuria Urinary tract infection type: acute cystitis Qualified Code(s): N30.00 - Acute cystitis without hematuria Code(s): N39.0 - Urinary tract infection, site not specified Status: Acute (2) Fecal impaction: Code(s): K56.41 - Fecal impaction Status: Acute (3) Right knee pain: Code(s): M25.561 - Pain in right knee Status: Acute (4) Elevated bilirubin: Code(s): R17 - Unspecified jaundice Status: Acute (5) Hypokalemia: Code(s): E87.6 - Hypokalemia Status: Acute (6) Paroxysmal atrial fibrillation: Code(s): I48.0 - Paroxysmal atrial fibrillation Status: Acute (7) Chronic anticoagulation: Code(s): 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 Labs, imaging, EKG, and all reports were personally reviewed. He was recently started on antibiotics for urinary tract infection however has not noticed any improvement. Urinalysis today still looks grossly infected. He has been started on ceftriaxone, pending urine culture. Potassium is low and will be replaced and monitored. CT shows evidence of fecal impaction with possible early stercoral colitis. Soapsuds enema ordered. Start MiraLax daily. Right knee x-ray noted, he is bed-bound and has had no recent falls thus this is not likely an acute issue. Analgesics are available as needed. Total bilirubin is a bit elevated though his other LFTs are well within normal limits. CT of the abdomen/pelvis did not show any acute findings of the biliary tree. Repeat LFTs in a.m.. He is in a sinus rhythm. Continue flecainide. Also continue Xarelto for stroke prophylaxis. Blood pressures were reviewed and they have been stable. His home medications will be reviewed and resumed as appropriate. Findings and treatment plan were discussed with the patient and his . Questions were solicited and answered to satisfaction. 10/11/2022 interval history: 72 y/o male presented with weakness and dysuria and found to have significant constipation, patient did have BM on 10/10 and stats feels better, urine culture is growing Gram-negative bacilli will continue ceftriaxone and follow up on identity and sensitivity, his weakness most likely stemming from constipations and UTI, will have PT/OT evaluate the patient, patient will benefit going to acute rehab, will continue to monitor. Subjective Date/time seen: 10/11/22 09:52 Interval history: Weakness. Narrative: This is a 72-year-old male with paroxysmal atrial fibrillation on anticoagulation, hypertension, hyperlipidemia, sleep apnea, benign prostatic hyperplasia,? and history of DVT and pulmonary embolism who presented to the emergency department via EMS from home for evaluation of weakness. He is not the best historian and a majority of the following history is obtained via a review of his EMR as well as information obtained from his . He is chronically ill and bed ridden. The last several days he has been increasingly weak and less interactive. According to the , he was diagnosed with urinary tract infection and he has been taking antibiotics without improvement. She called 911 today as he was complaining of abdominal pain and right knee pain, both which are chronic for him. He was afebrile on arrival to the emergency department with stable vital signs. Labs were significant for a WBC count of 14.9 potassium 3.2, lactic acid 1.3, bilirubin 2.0, CRP 18.2. Urine was nitrate positive with 3+ leukocyte esterase, 1+ bacteria, greater than [address] of the abdomen and pelvis showed fecal impaction with findings concerning for early stercora
[2022-10-11 10:35] LABS: Hematocrit 44.4 % (42.0-52.0); Hemoglobin 13.7 g/dL (14.0-18.0); Mean Corpuscular HGB Conc 30.9 g/dl (32-36); Mean Corpuscular Hemoglobin 27.6 pg (26-34); Mean Corpuscular Volume 89.5 fl (80-100); Platelet Count Result 177 k/mm3 (150-375); Red Blood Count 4.96 M/mm3 (4.6-6.20); Red Cell Distribution Width 14.7 % (11.5-14.5); White Blood Count 6.5 K/mm3 (4.5-10.0)
[2022-10-11 10:38] LABS: Anion Gap 3 mmol/L (8-16); Blood Urea Nitrogen 12 mg/dL (9-20); Calcium 8.1 mg/dL (8.4-10.2); Carbon Dioxide 38 mmol/L (22-30); Chloride 96 mmol/L (98-107); Estimated CRCL calculation 243 ml/min; Estimated Glomerular Filt Rate > 60; Glucose 162 mg/dL (65-110); Potassium 3.1 mmol/L (3.4-5.0); Sodium 137 mmol/L (137-145)
[2022-10-11] MEDS: TAMSULOSIN HCL 0.4 MG CAPSULE PO (18:19)
[2022-10-11] MEDS: RIVAROXABAN 20 MG TABLET PO (18:19)
[2022-10-11] MEDS: DONEPEZIL HCL 10 MG TABLET PO (20:20)
[2022-10-12 05:55] LABS: Hematocrit 42.7 % (42.0-52.0); Hemoglobin 13.5 g/dL (14.0-18.0); Mean Corpuscular HGB Conc 31.6 g/dl (32-36); Mean Corpuscular Hemoglobin 28.1 pg (26-34); Mean Corpuscular Volume 88.8 fl (80-100); Mean Platelet Volume 9.9 fl (7.4-10.4); Platelet Count Result 181 k/mm3 (150-375); Red Blood Count 4.81 M/mm3 (4.6-6.20); Red Cell Distribution Width 14.5 % (11.5-14.5); White Blood Count 5.6 K/mm3 (4.5-10.0)
[2022-10-12 06:00] VITALS: BP 165/93; PULSE 58; RESP 16; TEMP 36.2; O2SAT 94
[2022-10-12 06:08] LABS: Magnesium 1.9 mg/dL (1.6-2.3)
[2022-10-12 09:10] VITALS: PULSE 62
[2022-10-12] MEDS: MEMANTINE 5 MG TABLET PO ×2 (09:10→17:22)
[2022-10-12] MEDS: FLECAINIDE ACETATE 50 MG TABLET 150 MG PO ×2 (09:10→20:48)
[2022-10-12] MEDS: ESCITALOPRAM OXALATE 10 MG TABLET PO (09:10)
[2022-10-12] MEDS: FOLIC ACID 1 MG TABLET PO (09:10)
[2022-10-12] MEDS: allopurinoL 300 MG TABLET PO (09:10)
[2022-10-12] MEDS: FUROSEMIDE 40 MG TABLET PO (09:10)
[2022-10-12] MEDS: SILVERGEL (ELTA) 45 ML 1 APPLIC TOPICAL (09:11)
[2022-10-12] MEDS: polyethylene glycoL 3350 17 GM POWD.PACK PO (09:11)
[2022-10-12 09:44] LABS: Anion Gap 3 mmol/L (8-16); Blood Urea Nitrogen 7 mg/dL (9-20); Calcium 8.3 mg/dL (8.4-10.2); Carbon Dioxide 36 mmol/L (22-30); Chloride 96 mmol/L (98-107); Estimated CRCL calculation 242 ml/min; Estimated Glomerular Filt Rate > 60; Glucose 129 mg/dL (65-110); Potassium 2.8 mmol/L (3.4-5.0); Sodium 135 mmol/L (137-145)
[2022-10-12] MEDS: POTASSIUM CHLORIDE 20 MEQ ER TABLET 40 MEQ PO (10:20)
[2022-10-12] MEDS: POTASSIUM CHLORIDE INJ 40 MEQ in SODIUM CHLORIDE 0.9% IV 500 ML 130 MEQ IVPB (10:21)
--- NOTE | 2022-10-12 10:30 | WPDPN ---
Progress Note: A&P Assessment and Plan (1) Urinary tract infection: Qualifiers: Hematuria presence: without hematuria Urinary tract infection type: acute cystitis Qualified Code(s): N30.00 - Acute cystitis without hematuria Code(s): N39.0 - Urinary tract infection, site not specified Status: Acute (2) Fecal impaction: Code(s): K56.41 - Fecal impaction Status: Acute (3) Right knee pain: Code(s): M25.561 - Pain in right knee Status: Acute (4) Elevated bilirubin: Code(s): R17 - Unspecified jaundice Status: Acute (5) Hypokalemia: Code(s): E87.6 - Hypokalemia Status: Acute (6) Paroxysmal atrial fibrillation: Code(s): I48.0 - Paroxysmal atrial fibrillation Status: Acute (7) Chronic anticoagulation: 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 Labs, imaging, EKG, and all reports were personally reviewed. He was recently started on antibiotics for urinary tract infection however has not noticed any improvement. Urinalysis today still looks grossly infected. He has been started on ceftriaxone, pending urine culture. Potassium is low and will be replaced and monitored. CT shows evidence of fecal impaction with possible early stercoral colitis. Soapsuds enema ordered. Start MiraLax daily. Right knee x-ray noted, he is bed-bound and has had no recent falls thus this is not likely an acute issue. Analgesics are available as needed. Total bilirubin is a bit elevated though his other LFTs are well within normal limits. CT of the abdomen/pelvis did not show any acute findings of the biliary tree. Repeat LFTs in a.m.. He is in a sinus rhythm. Continue flecainide. Also continue Xarelto for stroke prophylaxis. Blood pressures were reviewed and they have been stable. His home medications will be reviewed and resumed as appropriate. Findings and treatment plan were discussed with the patient and his . Questions were solicited and answered to satisfaction. 10/12/2022 interval history: 72 y/o male presented with weakness and dysuria and found to have significant constipation, patient did have BM on 10/10 and BM since will continue colace and Miralax and stats feels better, urine culture is growing urine culture is growing Pseudomonas aeruginosa pansensitive will start the patient on Levaquin, his weakness most likely stemming from constipations and UTI, will have PT/OT evaluate the patient, patient will benefit going to acute rehab, patient is present in the and gave updates, will continue to monitor. Subjective Date/time seen: 10/12/22 10:30 Interval history: Weakness. Narrative: This is a 72-year-old male with paroxysmal atrial fibrillation on anticoagulation, hypertension, hyperlipidemia, sleep apnea, benign prostatic hyperplasia,? and history of DVT and pulmonary embolism who presented to the emergency department via EMS from home for evaluation of weakness. He is not the best historian and a majority of the following history is obtained via a review of his EMR as well as information obtained from his . He is chronically ill and bed ridden. The last several days he has been increasingly weak and less interactive. According to the , he was diagnosed with urinary tract infection and he has been taking antibiotics without improvement. She called 911 today as he was complaining of abdominal pain and right knee pain, both which are chronic for him. He was afebrile on arrival to the emergency department with stable vital signs. Labs were significant for a WBC count of 14.9 potassium 3.2, lactic acid 1.3, bilirubin 2.0, CRP 18.2. Urine was nitrate positive with 3+ leukocyte esterase, 1+ bacteria, greater than 100
[2022-10-12 15:18] VITALS: BP 111/68; PULSE 68; RESP 16; TEMP 36.4; O2SAT 93
[2022-10-12] MEDS: RIVAROXABAN 20 MG TABLET PO (17:22)
[2022-10-12] MEDS: TAMSULOSIN HCL 0.4 MG CAPSULE PO (17:22)
[2022-10-12 20:48] VITALS: PULSE 60
[2022-10-12] MEDS: DONEPEZIL HCL 10 MG TABLET PO (20:49)
[2022-10-12 22:20] VITALS: BP 123/93; PULSE 65; RESP 16; TEMP 36.1; O2SAT 93
[2022-10-13] VITALS (16 sets, daily range): BP systolic 88–138; BP diastolic 55–82; PULSE 55–83; RESP 15–21; TEMP 35.8–36.8; O2SAT 91–100
[2022-10-13 05:30] LABS: Hematocrit 41.9 % (42.0-52.0); Hemoglobin 13.2 g/dL (14.0-18.0); Mean Corpuscular HGB Conc 31.5 g/dl (32-36); Mean Corpuscular Hemoglobin 28.2 pg (26-34); Mean Corpuscular Volume 89.5 fl (80-100); Mean Platelet Volume 9.8 fl (7.4-10.4); Platelet Count Result 200 k/mm3 (150-375); Red Blood Count 4.68 M/mm3 (4.6-6.20); Red Cell Distribution Width 14.6 % (11.5-14.5); White Blood Count 5.3 K/mm3 (4.5-10.0)
[2022-10-13 05:43] LABS: Anion Gap 5 mmol/L (8-16); Blood Urea Nitrogen 6 mg/dL (9-20); Calcium 8.2 mg/dL (8.4-10.2); Carbon Dioxide 35 mmol/L (22-30); Chloride 98 mmol/L (98-107); Estimated CRCL calculation 242 ml/min; Estimated Glomerular Filt Rate > 60; Glucose 127 mg/dL (65-110); Potassium 2.9 mmol/L (3.4-5.0); Sodium 138 mmol/L (137-145)
[2022-10-13] MEDS: polyethylene glycoL 3350 17 GM POWD.PACK PO (08:15)
[2022-10-13] MEDS: POTASSIUM CHLORIDE 20 MEQ ER TABLET PO (08:15)
[2022-10-13] MEDS: allopurinoL 300 MG TABLET PO (08:15)
[2022-10-13] MEDS: POTASSIUM CHLORIDE 20 MEQ ER TABLET 40 MEQ PO ×2 (08:15→12:48)
[2022-10-13] MEDS: FOLIC ACID 1 MG TABLET PO (08:16)
[2022-10-13] MEDS: MEMANTINE 5 MG TABLET PO ×2 (08:16→17:31)
[2022-10-13] MEDS: ESCITALOPRAM OXALATE 10 MG TABLET PO (08:16)
[2022-10-13] MEDS: FUROSEMIDE 40 MG TABLET PO (08:16)
[2022-10-13] MEDS: SILVERGEL (ELTA) 45 ML 1 APPLIC TOPICAL (08:17)
[2022-10-13] MEDS: FLECAINIDE ACETATE 50 MG TABLET 150 MG PO ×2 (08:18→21:23)
[2022-10-13] MEDS: EUCERIN CREAM 120 GM JAR 1 APPLIC TOPICAL (10:03)
--- NOTE | 2022-10-13 10:46 | PCPTNOTE ---
PT eval completed; I talked with Dr Conteh--pt is at baseline, bed bound and total care required. He gave verbal orders for OT eval to be canceled and PT can be d/c.
[2022-10-13] MEDS: CEFEPIME 2 GM/NS 50 ML 2 GM/50 ML BAG IVPB ×2 (10:53→21:21)
--- NOTE | 2022-10-13 13:11 | WPDPN ---
Progress Note: A&P Assessment and Plan (1) Urinary tract infection: Qualifiers: Hematuria presence: without hematuria Urinary tract infection type: acute cystitis Qualified Code(s): N30.00 - Acute cystitis without hematuria Code(s): N39.0 - Urinary tract infection, site not specified Status: Acute (2) Fecal impaction: Code(s): K56.41 - Fecal impaction Status: Acute (3) Right knee pain: Code(s): M25.561 - Pain in right knee Status: Acute (4) Elevated bilirubin: Code(s): R17 - Unspecified jaundice Status: Acute (5) Hypokalemia: Code(s): E87.6 - Hypokalemia Status: Acute (6) Paroxysmal atrial fibrillation: Code(s): I48.0 - Paroxysmal atrial fibrillation Status: Acute (7) Chronic anticoagulation: 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 Labs, imaging, EKG, and all reports were personally reviewed. He was recently started on antibiotics for urinary tract infection however has not noticed any improvement. Urinalysis today still looks grossly infected. He has been started on ceftriaxone, pending urine culture. Potassium is low and will be replaced and monitored. CT shows evidence of fecal impaction with possible early stercoral colitis. Soapsuds enema ordered. Start MiraLax daily. Right knee x-ray noted, he is bed-bound and has had no recent falls thus this is not likely an acute issue. Analgesics are available as needed. Total bilirubin is a bit elevated though his other LFTs are well within normal limits. CT of the abdomen/pelvis did not show any acute findings of the biliary tree. Repeat LFTs in a.m.. He is in a sinus rhythm. Continue flecainide. Also continue Xarelto for stroke prophylaxis. Blood pressures were reviewed and they have been stable. His home medications will be reviewed and resumed as appropriate. Findings and treatment plan were discussed with the patient and his . Questions were solicited and answered to satisfaction. 10/13/2022 interval history: 72 y/o male presented with weakness and dysuria and found to have significant constipation, patient did have BM on 10/10 and BM since will continue colace and Miralax and stats feels better, urine culture is growing Pseudomonas aeruginosa pansensitive today discussed with ID pharmaciet will starte cefepime 2gram twice a day for 7 days until 10/19, his weakness most likely stemming from constipations and UTI, will have PT/OT evaluate the patient, patient will benefit going to acute rehab, patient is present in the and gave updates, will continue to monitor. Subjective Date/time seen: 10/13/22 13:11 Interval history: Weakness. Narrative: This is a 72-year-old male with paroxysmal atrial fibrillation on anticoagulation, hypertension, hyperlipidemia, sleep apnea, benign prostatic hyperplasia,? and history of DVT and pulmonary embolism who presented to the emergency department via EMS from home for evaluation of weakness. He is not the best historian and a majority of the following history is obtained via a review of his EMR as well as information obtained from his . He is chronically ill and bed ridden. The last several days he has been increasingly weak and less interactive. According to the , he was diagnosed with urinary tract infection and he has been taking antibiotics without improvement. She called 911 today as he was complaining of abdominal pain and right knee pain, both which are chronic for him. He was afebrile on arrival to the emergency department with stable vital signs. Labs were significant for a WBC count of 14.9 potassium 3.2, lactic acid 1.3, bilirubin 2.0, CRP 18.2. Urine was nitrate positive with 3+ leukocyte
--- NOTE | 2022-10-13 14:56 | PC.NURSE ---
Patient had been moved over to Bariatric bed and RN walked by the room and noticed some serosanguineous drainage on the top sheet so nurse went across the javier to get some gauze and tape to apply to the left lower leg. When nurse went to apply gauze a trickle size draining area went to a six inch split in the left lower leg and started gushing bright red blood. Nurse called a Rapid Response and Dr Conteh and Dr Conteh appeared at immediately bedside.
[2022-10-13] MEDS: ACETAMINOPHEN 500 MG TABLET PO (15:07)
[2022-10-13] MEDS: MORPHINE SULFATE (*CRX) 2 MG/ML INJ IV PUSH ×2 (15:46→21:21)
[2022-10-13] MEDS: SODIUM CHLORIDE 0.9% IV 500 ML 999 ML IV CONT (16:01)
[2022-10-13 16:07] LABS: Hematocrit 44.4 % (42.0-52.0); Hemoglobin 13.8 g/dL (14.0-18.0)
[2022-10-13 16:23] LABS: INR 1.4; Prothrombin Time 17.8 Seconds (11.1-14.7)
--- NOTE | 2022-10-13 16:36 | PM.CNGS ---
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 The patient has since been admitted to the medical service and has had workup and treat for his initial complaints. Of note, the patient is largely bed ridden and has severe peripheral vascular disease, venous stasis. Today while transferring the patient to a different bed, nursing noted bleeding from his left lower extremity. Upon further examination, there was a large new wound in his left lower leg that was not previously present. This wound was significantly bleeding and a rapid response was called. General surgery was emergently consulted for bleeding and wound care. Review of Systems Review of Systems: ROS unobtainable: Yes unobtainable due to medical condition PMFSH Past Medical History Medical History Anxiety Arthritis Benign prostatic hyperplasia Bilateral ankle fractures Borderline diabetes Chronic anemia Chronic anticoagulation Deep venous thrombosis Dementia Depression Gastroesophageal reflux disease Gout History of peptic ulcer History of pericarditis Hypertension Irritable bowel syndrome Kidney stones Obstructive sleep apnea on CPAP Osteomyelitis Parkinsons disease Paroxysmal atrial fibrillation Peripheral neuropathy Peripheral vascular disease Pneumonia Pulmonary embolism Surgical History Surgical History History of appendectomy History of arthroplasty of left knee History of arthroscopic knee surgery History of cardiac catheterization History of cholecystectomy History of ERCP History of inguinal hernia repair History of left knee replacement History of left nephrectomy (1956) History of umbilical hernia repair Family History Family History Mother Hypertension, Onset Age: 79 Family history of diabetes mellitus in first degree relative, Onset Age: 79 Family history of arthritis, Onset Age: 79 Family history of congestive heart failure, Onset Age: 79 Sibling Hypertension Carcinoma of colon Father Hypertension, Onset Age: 80 Family history of Parkinson's disease Family history of Alzheimer's disease, Onset Age: 80 Family history of diabetes mellitus in first degree relative, Onset Age: 80 Carcinoma of colon Social History Social History Social History: The patient is and lives with his in [place]. 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 They have 2 children. He is retired from [employer]. Lifelong nonsmoker. No alcohol or illicit substance abuse. His , Araceli Zamora, as his surrogate decision-maker and he wishes to be a DNR. Smoking status: Never smoker Second hand tobacco smoke exposure: No Alcohol intake: never Substance use: never Substance use type: does not use Lack of Transportation: No Lack of Food: Never True Current Housing: I Have Housing Concerned About Future Housing: No Difficulty Paying Gas/Electric Bills: No Difficulty Paying for Meds:
--- NOTE | 2022-10-13 16:43 | P.OP_ITS ---
Procedure Note - Detailed Date of Procedure 10/13/22 Pre-op Diagnosis bleeding left lower extremity wound measuring 20 x 15 cm Post-op Diagnosis Same Procedure Performed exploration of left lower extremity wound, evacuation of hematoma, washout, placement of surgical foam, placement of sterile dressing Surgeon Lisa Castro MD Anesthesia None Indications 72-year-old male with spontaneous bleeding wound in the left lower extremity noted earlier today. Patient on anticoagulation and significant bleeding from wound noted despite conservative measures. Findings 20 x 15 cm wound with dermal degloving, subcutaneous involvement, does not extend into the underlying fascia or muscle Description of Procedure The patient was placed in the supine position. A time-out was then done to verify the patient's identity, as well as the procedure being performed. I began by removing the previously placed dressing. Generalized oozing was noted, however no arterial bleeding was noted. I then evacuated a large hematoma from the wound. Once the hematoma was evacuated, I washed out the wound with normal saline. There was diffuse oozing from the wound, however no significant arterial bleeding was noted. Of note, the wound did not seem to extend into the underlying muscle. I then packed surgical foam x2 into the wound bed. The wound measured approximately 20 x 15 cm. Pressure was then held and the ble eding was noted to be largely resolved. I then placed a sterile pressure dressing with 4 x 4 fluffs and Kerlix around the wound. The patient tolerated the procedure well and was alert and oriented. Estimated Blood Loss 50 Urine Output 700 Packing Yes Pathology None sent Complications No immediate complications Condition Stable Disposition Floor [facility] Billing Surgery - Charge Forward: Surgery Billing
--- NOTE | 2022-10-13 17:21 | PC.NURSE ---
Patient was bleeding profusely and Dr Castro was notified via phone about whether patient was going to go to surgery tonight. retail warehouse supervisor was called to see if Dr Castro spoke to him about patient going to OR.
[2022-10-13] MEDS: SODIUM CHLORIDE 0.9% IV 250 ML 30 ML IV CONT (17:27)
[2022-10-13] MEDS: TAMSULOSIN HCL 0.4 MG CAPSULE PO (17:32)
--- NOTE | 2022-10-13 17:50 | PC.NURSE ---
To OR via bed. Frozen plasma infusing in right hand IV #22. at bedside.
[2022-10-13] MEDS: LACTATED RINGERS 1,000 ML 30 ML IV CONT ×2 (17:55→20:02)
--- NOTE | 2022-10-13 18:12 | WPDANESEPPF ---
Anes - Initial Pre Proc Eval Procedure: Operation Date: 10/13/22 16:30 Proposed Procedures p Washout And Cauterization Of Bleeding Left Lower Extrmity Wound - Lisa Castro MD Date/Time: 10/13/22 18:12 Surgeon: Wenceslao Conteh MD Pre Op Diagnosis: Urinary Tract Infection,Hypokalemia Patient Data Age: 72 Gender: M Height: 2.06 m Weight: 170.3 kg Last Vital Signs Temp 35.9 C L 10/13/22 17:37 Pulse 79 10/13/22 17:37 Resp 18 10/13/22 17:37 BP 88/61 L 10/13/22 17:37 Pulse Ox 94 10/13/22 17:37 O2 Del Method Room Air 10/13/22 09:35 O2 Flow Rate 2 10/10/22 08:10 Allergies Allergy/AdvReac Type Severity Reaction Status Date / Time ampicillin Allergy Unknown Hives Verified 10/13/22 09:31 iodine Allergy Unknown Hives Verified 11/10/21 19:47 Penicillins Allergy Unknown Hives Verified 10/13/22 09:31 Contrast Media Allergy Severe hives Uncoded 11/10/21 19:47 Home Medications Medication Instructions Recorded Confirmed Type acetaminophen 500 mg tablet 500 mg PO Q6H PRN Pain 09/28/19 10/09/22 History furosemide 40 mg tablet 40 mg PO DAILY #90 tabs 02/09/20 10/09/22 Rx tamsulosin 0.4 mg capsule (Flomax) 0.4 mg PO QPM #90 caps 02/09/20 10/09/22 Rx allopurinol 300 mg tablet 300 mg PO DAILY #90 tabs 10/23/20 10/09/22 Rx donepezil 10 mg tablet 10 mg PO HS 04/03/21 10/09/22 History flecainide 150 mg tablet 150 mg PO BID #0 tabs 04/06/21 10/09/22 Rx escitalopram oxalate 10 mg tablet 10 mg PO DAILY 10/09/22 10/09/22 History folic acid 1 mg tablet 1 mg PO DAILY 10/09/22 10/09/22 History memantine 5 mg tablet 5 mg PO BID 10/09/22 10/09/22 History potassium chloride 20 mEq 20 meq PO 3XW 10/09/22 10/09/22 History tablet,extended release rivaroxaban 20 mg tablet (Xarelto) 20 mg PO .ALPA 10/09/22 10/09/22 History Laboratory Tests 10/13/22 10/13/22 10/13/22 05:02 05:02 16:00 WBC 5.3 K/mm3 (4.5-10.0) RBC 4.68 M/mm3 (4.6-6.20) Hgb 13.2 L g/dL (14.0-18.0) Hct 41.9 L % (42.0-52.0) MCV 89.5 fl (80-100) MCH 28.2 pg (26-34) MCHC 31.5 L g/dl (32-36) RDW 14.6 H % (11.5-14.5) Plt Count 200 k/mm3 (150-375) MPV 9.8 fl (7.4-10.4) PT 17.8 H D Seconds (11.1-14.7) INR 1.4 APTT 42.0 H SECONDS (22.3-36.8) Sodium 138 mmol/L (137-145) Potassium 2.9 L mmol/L (3.4-5.0) Chloride 98 mmol/L (98-107) Carbon Dioxide 35 H mmol/L (22-30) Anion Gap 5 L mmol/L (8-16) BUN 6 L mg/dL (9-20) Creatinine 0.40 L mg/dL (0.7-1.3) Estim Creat Clear Calc 242 ml/min Estimated GFR > 60 (59 - ) Glucose 127 H mg/dL (65-110) Calcium 8.2 L mg/dL (8.4-10.2) Magnesium Cancelled 2.0 mg/dL (1.6-2.3) Blood Type 10/13/22 16:01 WBC RBC Hgb 13.8 L g/dL (14.0-18.0) Hct 44.4 % (42.0-52.0) MCV MCH MCHC RDW Plt Count MPV PT INR APTT Sodium Potassium Chloride Carbon Dioxide Anion Gap BUN Creatinine Estim Creat Clear Calc Estimated GFR Glucose Calcium Magnesium Blood Type B Positive Patient hx anesthesia problems: none Family hx anesthesia problems: none Results Review: All pre-operative results and documents have been reviewed as part of the pre-operative evaluation. PMFSH Past Medical History Medical History Anxiety Arthritis Benign prostatic hyperplasia Bilateral ankle fractures Borderline diabetes Chronic anemia Chronic anticoagulation Deep venous thrombosis Dementia Depression Gastroesophageal reflux disease Gout History of peptic ulcer History of pericarditis Hypertension Irritable bowel syndrome
--- NOTE | 2022-10-13 18:14 | WPDHPUPDATE1 ---
History and Physical Update Update Date/Time: 10/13/22 18:14 History and Physical has been reviewed, including an updated exam of the patient. There are NO changes in the patient's condition. Risks, benefits, and alternatives have been discussed and questions answered. Patient agrees to proceed with procedure. pt c cont bleeding and will take to OR for further exploration, bleeding control
[2022-10-13] MEDS: ceFAZolin SODIUM 1 GM VIAL 3 GM IV PUSH (18:47)
--- NOTE | 2022-10-13 19:26 | W.PM.PROC2 ---
Procedure Note - Detailed Date of Procedure 10/13/22 Pre-op Diagnosis Bleeding left lower extremity wound measuring [id number], overlying necrotic skin and subcutaneous tissue Post-op Diagnosis Same Procedure Performed Left lower extremity wound exploration measuring [id number] with evacuation of hematoma, extensive debridement of necrotic skin and subcutaneous tissue, washout of wound, hemostasis with Bovie cautery and multiple hemostatic agents, placement of what to dry pressure dressing Surgeon Lisa Castro MD Anesthesia General Indications 72-year-old male with spontaneous bleeding left lower extremity wound from earlier today, attempted control on the floor, continued extensive bleeding requiring surgical intervention in the operating room Findings Generalized oozing with the small arterial bleeders, extensive necrotic dermis and subcutaneous tissue Description of Procedure The patient was taken the operating room and placed in the supine position. After adequate induction of general anesthesia, the patient was prepped and draped in normal sterile fashion. A time-out was then done to verify the patient identity, as well as the procedure being performed. I began by exploring the wound by removing the old dressing. The dressing was noted to be quite saturated with blood, clot. The hematoma and previously placed surgical flow removed. There was noted to be extensive necrosis of the skin and subcutaneous tissue. An extensive debridement of the tissue was done sharply with the 15 blade scalpel as well as the Bovie cautery. Once this area was completely debrided, the wound was noted to be approximately [id number]. The underlying fascia and muscle did not seem to be involved with the wound. I then gained hemostasis with the Bovie cautery. Given his anticoagulation, I placed multiple hemostatic agent into the wound to help control hemostasis. This included hemoderm, Gelfoam, and Surgiflo. I then held pressure for approximately 10 to 15 minutes and no further bleeding was noted. At this point a wet to dry pressure dressing with normal saline was placed on the wound. The patient tolerated the procedure relatively well and was extubated postoperatively. He will be transferred to recovery room in stable condition. Estimated Blood Loss 50 Urine Output 700 Drains No Packing Yes Pathology None sent Complications No immediate complications Condition Stable Disposition PACU [facility] Billing Surgery - Charge Forward: Surgery Billing
[2022-10-13] MEDS: DONEPEZIL HCL 10 MG TABLET PO (21:24)
[2022-10-14] VITALS: BP 105/58; PULSE 71; RESP 18; TEMP 36.7; O2SAT 91
[2022-10-14] MEDS: MORPHINE SULFATE (*CRX) 2 MG/ML INJ IV PUSH (02:57)
[2022-10-14 05:42] LABS: Hematocrit 38.1 % (42.0-52.0); Hemoglobin 11.7 g/dL (14.0-18.0); Mean Corpuscular HGB Conc 30.7 g/dl (32-36); Mean Corpuscular Hemoglobin 27.8 pg (26-34); Mean Corpuscular Volume 90.5 fl (80-100); Mean Platelet Volume 9.5 fl (7.4-10.4); Platelet Count Result 210 k/mm3 (150-375); Red Blood Count 4.21 M/mm3 (4.6-6.20); Red Cell Distribution Width 14.6 % (11.5-14.5); White Blood Count 6.9 K/mm3 (4.5-10.0)
[2022-10-14 05:45] VITALS: BP 167/58; PULSE 74; RESP 18; TEMP 36.5; O2SAT 91
[2022-10-14 05:59] LABS: Anion Gap 7 mmol/L (8-16); Blood Urea Nitrogen 11 mg/dL (9-20); Calcium 8.4 mg/dL (8.4-10.2); Carbon Dioxide 30 mmol/L (22-30); Chloride 101 mmol/L (98-107); Estimated CRCL calculation 253 ml/min; Estimated Glomerular Filt Rate > 60; Glucose 127 mg/dL (65-110); Magnesium 2.1 mg/dL (1.6-2.3); Potassium 3.9 mmol/L (3.4-5.0); Sodium 138 mmol/L (137-145)
[2022-10-14] MEDS: CEFEPIME 2 GM/NS 50 ML 2 GM/50 ML BAG IVPB ×2 (08:57→21:01)
[2022-10-14 08:58] VITALS: PULSE 76
[2022-10-14] MEDS: allopurinoL 300 MG TABLET PO (08:58)
[2022-10-14] MEDS: MEMANTINE 5 MG TABLET PO ×2 (08:58→16:23)
[2022-10-14] MEDS: FOLIC ACID 1 MG TABLET PO (08:58)
[2022-10-14] MEDS: FUROSEMIDE 40 MG TABLET PO (08:58)
[2022-10-14] MEDS: FLECAINIDE ACETATE 50 MG TABLET 150 MG PO ×2 (08:58→20:59)
[2022-10-14] MEDS: ESCITALOPRAM OXALATE 10 MG TABLET PO (08:58)
[2022-10-14] MEDS: EUCERIN CREAM 120 GM JAR 1 APPLIC TOPICAL (08:59)
[2022-10-14] MEDS: SILVERGEL (ELTA) 45 ML 1 APPLIC TOPICAL (08:59)
[2022-10-14] MEDS: polyethylene glycoL 3350 17 GM POWD.PACK PO (09:02)
--- NOTE | 2022-10-14 09:44 | WPDANESPN ---
Anes - Prog Note Post-Op Date/Time: 10/14/22 09:44 Cardiovascular status: normal Respiratory status: normal Airway patency: baseline Mental status: baseline (confused, baseline per RN) Post-Op hydration status: normal Vital Signs: Last Vital Signs Temp 97.7 F 10/14/22 05:45 Pulse 76 10/14/22 08:58 Resp 18 10/14/22 05:45 BP 167/58 H 10/14/22 05:45 Pulse Ox 91 10/14/22 05:45 O2 Del Method Room Air 10/13/22 20:08 O2 Flow Rate 2 10/13/22 19:53 Pain Score (VAS): 0 I/O: Intake & Output 10/13/22 10/14/22 10/14/22 23:59 07:59 15:59 Intake Total 1022 Output Total 1400 Balance -378 Laboratory Tests 10/14/22 05:31 10/14/22 05:31 10/13/22 10/13/22 10/14/22 16:00 16:01 05:31 WBC 6.9 RBC 4.21 L Hgb 13.8 L 11.7 L Hct 44.4 38.1 L MCV 90.5 MCH 27.8 MCHC 30.7 L RDW 14.6 H Plt Count 210 MPV 9.5 PT 17.8 H D INR 1.4 APTT 42.0 H Sodium 138 Potassium 3.9 Chloride 101 Carbon Dioxide 30 Anion Gap 7 L BUN 11 D Creatinine 0.40 L Estim Creat Clear Calc 253 Estimated GFR > 60 Glucose 127 H Calcium 8.4 Magnesium 2.1 Blood Type B Positive Post-procedural complaints: none Patient Feedback: Patient satisfied with anesthetic care.
[2022-10-14] MEDS: ACETAMINOPHEN 500 MG TABLET 1000 MG PO ×2 (09:53→16:20)
--- NOTE | 2022-10-14 09:54 | WPDPN ---
Progress Note: A&P Assessment and Plan (1) Urinary tract infection: Qualifiers: Hematuria presence: without hematuria Urinary tract infection type: acute cystitis Qualified Code(s): N30.00 - Acute cystitis without hematuria Code(s): N39.0 - Urinary tract infection, site not specified Status: Acute (2) Fecal impaction: Code(s): K56.41 - Fecal impaction Status: Acute (3) Right knee pain: Code(s): M25.561 - Pain in right knee Status: Acute (4) Elevated bilirubin: Code(s): R17 - Unspecified jaundice Status: Acute (5) Hypokalemia: Code(s): E87.6 - Hypokalemia Status: Acute (6) Paroxysmal atrial fibrillation: Code(s): I48.0 - Paroxysmal atrial fibrillation Status: Acute (7) Chronic anticoagulation: Code(s): Z79.01 - long term care pharmacist (current) use of anticoagulants Status: Acute (8) Hypertension: Code(s): I10 - Essential (primary) hypertension Status: Acute Plan The patient presented to the emergency department from home for evaluation of weakness the last couple of days. Labs, imaging, EKG, and all reports were personally reviewed. He was recently started on antibiotics for urinary tract infection however has not noticed any improvement. Urinalysis today still looks grossly infected. He has been started on ceftriaxone, pending urine culture. Potassium is low and will be replaced and monitored. CT shows evidence of fecal impaction with possible early stercoral colitis. Soapsuds enema ordered. Start MiraLax daily. Right knee x-ray noted, he is bed-bound and has had no recent falls thus this is not likely an acute issue. Analgesics are available as needed. Total bilirubin is a bit elevated though his other LFTs are well within normal limits. CT of the abdomen/pelvis did not show any acute findings of the biliary tree. Repeat LFTs in a.m.. He is in a sinus rhythm. Continue flecainide. Also continue Xarelto for stroke prophylaxis. Blood pressures were reviewed and they have been stable. His home medications will be reviewed and resumed as appropriate. Findings and treatment plan were discussed with the patient and his . Questions were solicited and answered to satisfaction. 10/14/2022 interval history: 72 y/o male presented with weakness and dysuria and found to have significant constipation, patient did have BM on 10/10 and BM since will continue colace and Miralax and stats feels better, urine culture is growing Pseudomonas aeruginosa pansensitive on 10/13 discussed with ID pharmacist and started cefepime 2gram twice a day for 2/7 days until 10/19, discussed with child care education coordinator, may arrange for placement to received IV Abx, his weakness most likely stemming from constipations and UTI, patient is morbidly obese and has chronic statsis dermatitis on 10/13 patient had open sore with significant bleeding was seen by general surgeon and place sutures to stop bleeding, will have PT/OT evaluate the patient, patient will benefit going to acute rehab, on 10/13patient was present in the room and gave updates, will continue to monitor. Subjective Date/time seen: 10/14/22 09:54 Interval history: Weakness. Narrative: This is a 72-year-old male with paroxysmal atrial fibrillation on anticoagulation, hypertension, hyperlipidemia, sleep apnea, benign prostatic hyperplasia,? and history of DVT and pulmonary embolism who presented to the emergency department via EMS from home for evaluation of weakness. He is not the best historian and a majority of the following history is obtained via a review of his EMR as well as information obtained from his . He is chronically ill and bed ridden. The last several days he has been increasingly weak and less interactive. According to the , he was diagnosed with urinary tract infection and he has been taking antibiotics without improvement. She called 911 today as he was complaining of abdominal pain and r
[2022-10-14 14:26] VITALS: BP 108/68; PULSE 70; RESP 16; TEMP 36.1; O2SAT 93
--- NOTE | 2022-10-14 15:42 | PM.PNGS ---
Progress Note: A&P Assessment and Plan (1) Wound of left lower extremity: Code(s): S81.802A - Unspecified open wound, left lower leg, initial encounter Status: Acute Assessment and Plan: no further bleeding noted, cont local wound care Subjective Subjective Date/Time Seen: 10/14/22 15:42 Interval history: no further bleeding noted, reports pain c dressing change Review of Systems Review of Systems: All systems reviewed & are unremarkable except as noted in HPI and below Exam Const: General: cooperative, comfortable, no acute distress and ill appearing Skin: Other: LLE dressing - C/D/I Objective Data Vital Signs Vital Signs: Vital Signs - 24 hr 10/13/22 17:37 10/13/22 17:52 10/13/22 17:52 Temperature 35.9 C L 36.7 C 36.7 C Pulse Rate 79 80 80 Respiratory Rate 18 18 18 Blood Pressure 88/61 L 112/70 112/70 Pulse Oximetry 94 94 94 Oxygen Delivery Room Air Oxygen Flow Rate 10/13/22 17:21 10/13/22 19:20 10/13/22 19:24 Temperature 36.7 C 36.4 C 36.4 C Pulse Rate 80 74 74 Respiratory Rate 18 20 20 Blood Pressure 112/70 103/75 103/75 Pulse Oximetry 94 100 98 Oxygen Delivery Room Air Simple Face Mask Oxygen Flow Rate 8 10/13/22 19:39 10/13/22 19:53 10/13/22 20:08 Temperature Pulse Rate 75 74 78 Respiratory Rate 15 21 H 19 Blood Pressure 91/73 L 106/69 97/64 L Pulse Oximetry 94 94 95 Oxygen Delivery Nasal Cannula Nasal Cannula Room Air Oxygen Flow Rate 2 2 10/13/22 21:14 10/13/22 21:23 10/13/22 22:23 Temperature 36.5 C 36.8 C Pulse Rate 83 60 81 Respiratory Rate 18 18 Blood Pressure 98/70 L 98/55 L Pulse Oximetry 91 92 Oxygen Delivery Oxygen Flow Rate 10/14/22 00:00 10/14/22 05:45 10/14/22 08:58 Temperature 36.7 C 36.5 C Pulse Rate 71 74 76 Respiratory Rate 18 18 Blood Pressure 105/58 L 167/58 H Pulse Oximetry 91 91 Oxygen Delivery Oxygen Flow Rate 10/14/22 09:20 10/14/22 14:26 Temperature 36.1 C L Pulse Rate 70 Respiratory Rate 16 Blood Pressure 108/68 Pulse Oximetry 93 Oxygen Delivery Room Air Oxygen Flow Rate Intake/Output Intake/Output: Intake & Output 10/11/22 10/12/22 10/13/22 10/14/22 23:59 23:59 23:59 23:59 Intake Total 1170 1450 1812 270 Output Total 1350 1150 1400 Balance -180 300 412 270 Meds/Results Medications: Active Medications Generic Name Dose Route Start Last Admin Trade Name Freq PRN Reason Stop Dose Admin Acetaminophen 1,000 mg 10/14/22 09:33 10/14/22 09:53 Acetaminophen 500 Mg Tablet PO 1,000 mg Q6H PRN Administration pain of 1-6 or fever Allopurinol 300 mg 10/10/22 09:00 10/14/22 08:58 Allopurinol 300 Mg Tablet PO 300 mg DAILY JAGUAR Administration Docusate Sodium 100 mg 10/12/22 10:58 Docusate Sodium 100 Mg Capsule PO Q12H PRN Constipation Donepezil HCl 10 mg 10/10/22 21:00 10/13/22 21:24 Donepezil Hcl 10 Mg Tablet PO 10 mg HS JAGUAR Administration Escitalopram Oxalate 10 mg 10/10/22 09:00 10/14/22 08:58 Escitalopram Oxalate 10 Mg Tablet PO 10 mg DAILY JAGUAR Administration Flecainide Acetate 150 mg 10/10/22 09:00 10/14/22 08:58 Flecainide Acetate 50 Mg Tablet PO 150 mg Q12HR JAGUAR Administration Folic Acid 1 mg 10/10/22 09:00 10/14/22 08:58 Folic Acid 1 Mg Tablet PO 1 mg DAILY JAGUAR Administration Furosemide 40 mg 10/10/22 09:00 10/14/22 08:58 Furosemide 40 Mg Tablet PO 40 mg DAILY JAGUAR Administration Cefepime HCl 2 gm in 50 mls @ 100 mls/hr 10/13/22 10:00 10/14/22 09:27 Maxipime 2 Gm/Ns 50 Ml IVPB 10/19/22 21:29 Infused Q12HR JAGUAR Infusion Memantine 5 mg 10/10/22 09:00 10/14/22 08:58 Memantine 5 Mg Tablet PO 5 mg BID JAGUAR Administration Miconazole Nitrate 1 applic 10/10/22 09:00 10/14/22 08:58 Miconazole 2% Antifungal Ointment 56 Gm TOPICAL 1 applic Q12HR JAGUAR Administration Morphine Sulfate 2 mg 10/13/22 15:21 10/14/22 02:57 Mo
[2022-10-14] MEDS: TAMSULOSIN HCL 0.4 MG CAPSULE PO (17:46)
[2022-10-14] MEDS: RIVAROXABAN 20 MG TABLET PO (17:46)
[2022-10-14 19:25] VITALS: BP 112/66; PULSE 76; RESP 18; TEMP 36.3; O2SAT 91
[2022-10-14 20:59] VITALS: PULSE 86
[2022-10-14] MEDS: DONEPEZIL HCL 10 MG TABLET PO (20:59)
[2022-10-15 05:41] LABS: Hematocrit 35.8 % (42.0-52.0); Hemoglobin 10.9 g/dL (14.0-18.0); Mean Corpuscular HGB Conc 30.4 g/dl (32-36); Mean Corpuscular Hemoglobin 27.5 pg (26-34); Mean Corpuscular Volume 90.2 fl (80-100); Mean Platelet Volume 9.8 fl (7.4-10.4); Platelet Count Result 227 k/mm3 (150-375); Red Blood Count 3.97 M/mm3 (4.6-6.20); Red Cell Distribution Width 14.6 % (11.5-14.5); White Blood Count 8.2 K/mm3 (4.5-10.0)
[2022-10-15 05:54] LABS: Anion Gap 3 mmol/L (8-16); Blood Urea Nitrogen 15 mg/dL (9-20); Calcium 8.5 mg/dL (8.4-10.2); Carbon Dioxide 35 mmol/L (22-30); Chloride 99 mmol/L (98-107); Estimated CRCL calculation 253 ml/min; Estimated Glomerular Filt Rate > 60; Glucose 125 mg/dL (65-110); Potassium 3.7 mmol/L (3.4-5.0); Sodium 137 mmol/L (137-145)
[2022-10-15 06:00] VITALS: BP 126/65; PULSE 66; RESP 18; TEMP 36.3; O2SAT 91
[2022-10-15] MEDS: SILVERGEL (ELTA) 45 ML 1 APPLIC TOPICAL (09:22)
[2022-10-15] MEDS: EUCERIN CREAM 454 GM JAR 1 APPLIC TOPICAL (09:22)
[2022-10-15 09:23] VITALS: PULSE 62
[2022-10-15] MEDS: FLECAINIDE ACETATE 50 MG TABLET 150 MG PO ×2 (09:23→20:29)
[2022-10-15] MEDS: FUROSEMIDE 40 MG TABLET PO (09:23)
[2022-10-15] MEDS: FOLIC ACID 1 MG TABLET PO (09:23)
[2022-10-15] MEDS: POTASSIUM CHLORIDE 20 MEQ ER TABLET PO (09:23)
[2022-10-15] MEDS: MEMANTINE 5 MG TABLET PO ×2 (09:23→17:08)
[2022-10-15] MEDS: allopurinoL 300 MG TABLET PO (09:24)
[2022-10-15] MEDS: ESCITALOPRAM OXALATE 10 MG TABLET PO (09:24)
[2022-10-15] MEDS: CEFEPIME 2 GM/NS 50 ML 2 GM/50 ML BAG IVPB ×2 (09:24→20:31)
[2022-10-15] MEDS: polyethylene glycoL 3350 17 GM POWD.PACK PO (09:45)
--- NOTE | 2022-10-15 10:44 | PCNFU ---
Nutrition Follow-Up Complete: Increased protein energy needs related to poor appetite, wounds as evidenced by report of poor intake and stage III pressure injury to buttock present on admission goal: Adequate PO intake at least 75% meals and supplements to promote wound healing Patient is progressing towards goal. We will continue current goal. Pt current nutrition is Heart Healthy with Nabor BID and Ensure Compact BID. Last recorded weight is 187 kg. Bowel Motility:+Bm reported 10/15 Labs Reviewed:Na 125, Hct 35.8,Hgb 10.9 Meds Noted:Lasix,Folic Acid, Miralax. Skin: Stage III Pressure Ulcer-buttock. Additional Notes: Patient remains on heart healthy diet. Oral Intake has been fair, 60-100% of most meals. Protein Modular of Nabor BID for wound healing. Patient also receiving Compact BID. Agree with diet orders. Monitoring intakes, weights, labs, supplement tolerance, wound healing, plan of care Follow up every 5 days
--- NOTE | 2022-10-15 12:15 | WPDPN ---
Progress Note: A&P Assessment and Plan (1) Urinary tract infection: Qualifiers: Hematuria presence: without hematuria Urinary tract infection type: acute cystitis Qualified Code(s): N30.00 - Acute cystitis without hematuria Code(s): N39.0 - Urinary tract infection, site not specified Status: Acute (2) Fecal impaction: Code(s): K56.41 - Fecal impaction Status: Acute (3) Right knee pain: Code(s): M25.561 - Pain in right knee Status: Acute (4) Elevated bilirubin: Code(s): R17 - Unspecified jaundice Status: Acute (5) Hypokalemia: Code(s): E87.6 - Hypokalemia Status: Acute (6) Paroxysmal atrial fibrillation: Code(s): I48.0 - Paroxysmal atrial fibrillation Status: Acute (7) Chronic anticoagulation: 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 Labs, imaging, EKG, and all reports were personally reviewed. He was recently started on antibiotics for urinary tract infection however has not noticed any improvement. Urinalysis today still looks grossly infected. He has been started on ceftriaxone, pending urine culture. Potassium is low and will be replaced and monitored. CT shows evidence of fecal impaction with possible early stercoral colitis. Soapsuds enema ordered. Start MiraLax daily. Right knee x-ray noted, he is bed-bound and has had no recent falls thus this is not likely an acute issue. Analgesics are available as needed. Total bilirubin is a bit elevated though his other LFTs are well within normal limits. CT of the abdomen/pelvis did not show any acute findings of the biliary tree. Repeat LFTs in a.m.. He is in a sinus rhythm. Continue flecainide. Also continue Xarelto for stroke prophylaxis. Blood pressures were reviewed and they have been stable. His home medications will be reviewed and resumed as appropriate. Findings and treatment plan were discussed with the patient and his . Questions were solicited and answered to satisfaction. 10/15/2022 interval history: 72 y/o male presented with weakness and dysuria and found to have significant constipation, patient did have BM on 10/10 and BM since will continue colace and Miralax and stats feels better, urine culture is growing Pseudomonas aeruginosa pansensitive on 10/13 discussed with ID pharmacist and started cefepime 2gram twice a day for 3/7 days until 10/19, discussed with congregational care pastor, may arrange for placement to received IV Abx, his weakness most likely stemming from constipations and UTI, patient is morbidly obese and has chronic statsis dermatitis on 10/13 patient had open sore with significant bleeding was seen by general surgeon and place sutures to stop bleeding, will have PT/OT evaluate the patient, patient will benefit going to acute rehab, on 10/13patient was present in the room and gave updates, will continue to monitor. Subjective Date/time seen: 10/15/22 12:15 Interval history: Weakness. Narrative: This is a 72-year-old male with paroxysmal atrial fibrillation on anticoagulation, hypertension, hyperlipidemia, sleep apnea, benign prostatic hyperplasia,? and history of DVT and pulmonary embolism who presented to the emergency department via EMS from home for evaluation of weakness. He is not the best historian and a majority of the following history is obtained via a review of his EMR as well as information obtained from his . He is chronically ill and bed ridden. The last several days he has been increasingly weak and less interactive. According to the , he was diagnosed with urinary tract infection and he has been taking antibiotics without improvement. She called 911 today as he was complaining of abdominal pain and r
[2022-10-15] MEDS: ACETAMINOPHEN 500 MG TABLET 1000 MG PO ×2 (13:26→20:29)
[2022-10-15] MEDS: TAMSULOSIN HCL 0.4 MG CAPSULE PO (17:08)
[2022-10-15] MEDS: RIVAROXABAN 20 MG TABLET PO (17:08)
[2022-10-15 17:43] VITALS: BP 105/64; PULSE 74; RESP 16; TEMP 36.3; O2SAT 98
[2022-10-15 20:00] VITALS: PULSE 70; RESP 18; O2SAT 90
[2022-10-15 20:29] VITALS: PULSE 80
[2022-10-15] MEDS: DONEPEZIL HCL 10 MG TABLET PO (20:29)
[2022-10-15] MEDS: TOLNAFTATE 1% POWDER 45 GM BTL 1 APPLIC TOPICAL (20:31)
[2022-10-15 21:00] VITALS: BP 111/68; PULSE 70; RESP 18; TEMP 36.6; O2SAT 90
[2022-10-16 05:29] VITALS: BP 117/70; PULSE 67; RESP 18; TEMP 37.1; O2SAT 91
[2022-10-16 05:40] LABS: Hemoglobin 10.1 g/dL (14.0-18.0); Mean Corpuscular HGB Conc 30.6 g/dl (32-36); Mean Corpuscular Hemoglobin 27.5 pg (26-34); Mean Corpuscular Volume 89.9 fl (80-100); Mean Platelet Volume 9.5 fl (7.4-10.4); Platelet Count Result 206 k/mm3 (150-375); Red Blood Count 3.67 M/mm3 (4.6-6.20); Red Cell Distribution Width 14.6 % (11.5-14.5)
[2022-10-16 05:52] LABS: Anion Gap 2 mmol/L (8-16); Blood Urea Nitrogen 13 mg/dL (9-20); Calcium 8.2 mg/dL (8.4-10.2); Carbon Dioxide 37 mmol/L (22-30); Chloride 98 mmol/L (98-107); Estimated CRCL calculation 253 ml/min; Estimated Glomerular Filt Rate > 60; Glucose 117 mg/dL (65-110); Potassium 3.4 mmol/L (3.4-5.0); Sodium 137 mmol/L (137-145)
[2022-10-16] MEDS: CEFEPIME 2 GM/NS 50 ML 2 GM/50 ML BAG IVPB ×2 (09:42→21:57)
[2022-10-16] MEDS: MEMANTINE 5 MG TABLET PO ×2 (09:48→17:06)
[2022-10-16] MEDS: ESCITALOPRAM OXALATE 10 MG TABLET PO (09:48)
[2022-10-16] MEDS: allopurinoL 300 MG TABLET PO (09:48)
[2022-10-16 09:49] VITALS: PULSE 68
[2022-10-16] MEDS: FUROSEMIDE 40 MG TABLET PO (09:49)
[2022-10-16] MEDS: FOLIC ACID 1 MG TABLET PO (09:49)
[2022-10-16] MEDS: FLECAINIDE ACETATE 50 MG TABLET 150 MG PO (09:49)
[2022-10-16] MEDS: EUCERIN CREAM 454 GM JAR 1 APPLIC TOPICAL (09:50)
[2022-10-16] MEDS: TOLNAFTATE 1% POWDER 45 GM BTL 1 APPLIC TOPICAL ×2 (09:50→21:48)
[2022-10-16 09:51] VITALS: PULSE 68; RESP 18; O2SAT 93
[2022-10-16] MEDS: SILVERGEL (ELTA) 45 ML 1 APPLIC TOPICAL (09:51)
[2022-10-16] MEDS: polyethylene glycoL 3350 17 GM POWD.PACK PO (10:40)
[2022-10-16] MEDS: POTASSIUM CHLORIDE 20 MEQ ER TABLET 40 MEQ PO (10:55)
--- NOTE | 2022-10-16 12:33 | WPDPN ---
Progress Note: A&P Assessment and Plan (1) Urinary tract infection: Qualifiers: Hematuria presence: without hematuria Urinary tract infection type: acute cystitis Qualified Code(s): N30.00 - Acute cystitis without hematuria Code(s): N39.0 - Urinary tract infection, site not specified Status: Acute (2) Fecal impaction: Code(s): K56.41 - Fecal impaction Status: Acute (3) Right knee pain: Code(s): M25.561 - Pain in right knee Status: Acute (4) Elevated bilirubin: Code(s): R17 - Unspecified jaundice Status: Acute (5) Hypokalemia: Code(s): E87.6 - Hypokalemia Status: Acute (6) Paroxysmal atrial fibrillation: Code(s): I48.0 - Paroxysmal atrial fibrillation Status: Acute (7) Chronic anticoagulation: Code(s): 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 Labs, imaging, EKG, and all reports were personally reviewed. He was recently started on antibiotics for urinary tract infection however has not noticed any improvement. Urinalysis today still looks grossly infected. He has been started on ceftriaxone, pending urine culture. Potassium is low and will be replaced and monitored. CT shows evidence of fecal impaction with possible early stercoral colitis. Soapsuds enema ordered. Start MiraLax daily. Right knee x-ray noted, he is bed-bound and has had no recent falls thus this is not likely an acute issue. Analgesics are available as needed. Total bilirubin is a bit elevated though his other LFTs are well within normal limits. CT of the abdomen/pelvis did not show any acute findings of the biliary tree. Repeat LFTs in a.m.. He is in a sinus rhythm. Continue flecainide. Also continue Xarelto for stroke prophylaxis. Blood pressures were reviewed and they have been stable. His home medications will be reviewed and resumed as appropriate. Findings and treatment plan were discussed with the patient and his . Questions were solicited and answered to satisfaction. 10/16/2022 interval history: 72 y/o male presented with weakness and dysuria and found to have significant constipation, patient did have BM on 10/10 and BM since will continue colace and Miralax and stats feels better, urine culture is growing Pseudomonas aeruginosa pansensitive on 10/13 discussed with ID pharmacist and started cefepime 2gram twice a day for 4/7 days until 10/19, discussed with care program director, may arrange for placement to received IV Abx, his weakness most likely stemming from constipations and UTI, patient is morbidly obese and has chronic statsis dermatitis on 10/13 patient had open sore with significant bleeding was seen by general surgeon and place sutures to stop bleeding, will have PT/OT evaluate the patient, patient will benefit going to acute rehab, on 10/13patient was present in the room and gave updates, will continue to monitor. Subjective Date/time seen: 10/16/22 12:33 Interval history: Weakness. Narrative: This is a 72-year-old male with paroxysmal atrial fibrillation on anticoagulation, hypertension, hyperlipidemia, sleep apnea, benign prostatic hyperplasia,? and history of DVT and pulmonary embolism who presented to the emergency department via EMS from home for evaluation of weakness. He is not the best historian and a majority of the following history is obtained via a review of his EMR as well as information obtained from his . He is chronically ill and bed ridden. The last several days he has been increasingly weak and less interactive. According to the , he was diagnosed with urinary tract infection and he has been taking antibiotics without improvement. She called 911 today as he was complaining of abdominal pain and r
[2022-10-16 14:00] VITALS: BP 109/59; PULSE 73; RESP 16; TEMP 36; O2SAT 96
[2022-10-16] MEDS: RIVAROXABAN 20 MG TABLET PO (17:06)
[2022-10-16] MEDS: TAMSULOSIN HCL 0.4 MG CAPSULE PO (17:06)
[2022-10-16 20:30] VITALS: BP 107/60; PULSE 74; RESP 18; TEMP 37; O2SAT 93
[2022-10-16] MEDS: DONEPEZIL HCL 10 MG TABLET PO (21:48)
[2022-10-16 22:03] VITALS: PULSE 74
--- NOTE | 2022-10-17 05:12 | PC.NURSE ---
Patient refusing to have morning labs drawn.
[2022-10-17 05:31] VITALS: BP 117/57; PULSE 69; RESP 18; TEMP 36.7; O2SAT 92
[2022-10-17 08:03] LABS: Hematocrit 31.7 % (42.0-52.0); Hemoglobin 10.2 g/dL (14.0-18.0); Mean Corpuscular HGB Conc 32.2 g/dl (32-36); Mean Corpuscular Hemoglobin 28.7 pg (26-34); Mean Platelet Volume 9.2 fl (7.4-10.4); Platelet Count Result 215 k/mm3 (150-375); Red Blood Count 3.56 M/mm3 (4.6-6.20); White Blood Count 5.6 K/mm3 (4.5-10.0)
[2022-10-17 08:43] LABS: Anion Gap 1 mmol/L (8-16); Blood Urea Nitrogen 10 mg/dL (9-20); Calcium 7.9 mg/dL (8.4-10.2); Carbon Dioxide 36 mmol/L (22-30); Chloride 98 mmol/L (98-107); Estimated CRCL calculation 253 ml/min; Estimated Glomerular Filt Rate > 60; Glucose 118 mg/dL (65-110); Magnesium 1.9 mg/dL (1.6-2.3); Potassium 3.2 mmol/L (3.4-5.0); Sodium 135 mmol/L (137-145)
[2022-10-17] MEDS: CEFEPIME 2 GM/NS 50 ML 2 GM/50 ML BAG IVPB ×2 (09:20→20:36)
[2022-10-17] MEDS: EUCERIN CREAM 454 GM JAR 1 APPLIC TOPICAL (09:24)
[2022-10-17] MEDS: TOLNAFTATE 1% POWDER 45 GM BTL 1 APPLIC TOPICAL ×2 (09:24→20:36)
[2022-10-17] MEDS: SILVERGEL (ELTA) 45 ML 1 APPLIC TOPICAL (09:25)
[2022-10-17] MEDS: allopurinoL 300 MG TABLET PO (09:26)
[2022-10-17] MEDS: FOLIC ACID 1 MG TABLET PO (09:26)
[2022-10-17] MEDS: POTASSIUM CHLORIDE 20 MEQ ER TABLET PO (09:26)
[2022-10-17] MEDS: ESCITALOPRAM OXALATE 10 MG TABLET PO (09:26)
[2022-10-17 09:27] VITALS: PULSE 68; RESP 18; O2SAT 92
[2022-10-17] MEDS: FLECAINIDE ACETATE 50 MG TABLET 150 MG PO ×2 (09:27→20:35)
[2022-10-17] MEDS: FUROSEMIDE 40 MG TABLET PO (09:27)
[2022-10-17] MEDS: MEMANTINE 5 MG TABLET PO ×2 (09:40→17:05)
--- NOTE | 2022-10-17 10:44 | PM.IMPN ---
Progress Note: A&P Assessment and Plan (1) Urinary tract infection: Qualifiers: Hematuria presence: without hematuria Urinary tract infection type: acute cystitis Qualified Code(s): N30.00 - Acute cystitis without hematuria Code(s): N39.0 - Urinary tract infection, site not specified Status: Acute (2) Fecal impaction: Code(s): K56.41 - Fecal impaction Status: Acute (3) Right knee pain: Code(s): M25.561 - Pain in right knee Status: Acute (4) Elevated bilirubin: Code(s): R17 - Unspecified jaundice Status: Acute (5) Hypokalemia: Code(s): E87.6 - Hypokalemia Status: Acute (6) Paroxysmal atrial fibrillation: Code(s): I48.0 - Paroxysmal atrial fibrillation Status: Acute (7) Chronic anticoagulation: Code(s): Z79.01 - intermediate manager (current) use of anticoagulants Status: Acute (8) Hypertension: Code(s): I10 - Essential (primary) hypertension Status: Acute Plan The patient presented to the emergency department from home for evaluation of weakness the last couple of days. Labs, imaging, EKG, and all reports were personally reviewed. He was recently started on antibiotics for urinary tract infection however has not noticed any improvement. Urinalysis today still looks grossly infected. He has been started on ceftriaxone, pending urine culture. Potassium is low and will be replaced and monitored. CT shows evidence of fecal impaction with possible early stercoral colitis. Soapsuds enema ordered. Start MiraLax daily. Right knee x-ray noted, he is bed-bound and has had no recent falls thus this is not likely an acute issue. Analgesics are available as needed. Total bilirubin is a bit elevated though his other LFTs are well within normal limits. CT of the abdomen/pelvis did not show any acute findings of the biliary tree. Repeat LFTs in a.m.. He is in a sinus rhythm. Continue flecainide. Also continue Xarelto for stroke prophylaxis. Blood pressures were reviewed and they have been stable. His home medications will be reviewed and resumed as appropriate. Findings and treatment plan were discussed with the patient and his . Questions were solicited and answered to satisfaction. 10/16/2022 interval history: 72 y/o male presented with weakness and dysuria and found to have significant constipation, patient did have BM on 10/10 and BM since will continue colace and Miralax and stats feels better, urine culture is growing Pseudomonas aeruginosa pansensitive on 10/13 discussed with ID pharmacist and started cefepime 2gram twice a day for 4/7 days until 10/19, discussed with acute care certified nursing assistant, may arrange for placement to received IV Abx, his weakness most likely stemming from constipations and UTI, patient is morbidly obese and has chronic statsis dermatitis on 10/13 patient had open sore with significant bleeding was seen by general surgeon and place sutures to stop bleeding, will have PT/OT evaluate the patient, patient will benefit going to acute rehab, on 10/13patient was present in the room and gave updates, will continue to monitor 10/17/2022:[age]-year-old male with proximal atrial fibrillation on anticoagulation hypertension hyperlipidemia sleep apnea BPH history of DVT and PE presented for evaluation of weakness. Bedridden at baseline recently diagnosed UTI and a taking antibiotics. Initial workup with leukocytosis 14.9 hypokalemia of 3.2 normal lactic acid elevated CRP urine positive for UTI CT abdomen pelvis with fecal impaction with findings concerning for early stercoral colitis and urinary bladder wall thickening. Chest x-ray with mild interstitial edema. ICD x-ray with severe osteopenia and hold medial tibial plateau 2 fracture and increase the tibial subluxation which may indicate ligamentous injury acute or chronic. Been on ceftriaxone. Continue Colace and MiraLax for stercoral colitis. Urine culture with Pseudomonas aeruginosa panse
[2022-10-17 14:03] VITALS: BP 106/78; PULSE 72; RESP 18; TEMP 36.3; O2SAT 91
[2022-10-17] MEDS: TAMSULOSIN HCL 0.4 MG CAPSULE PO (17:05)
[2022-10-17] MEDS: RIVAROXABAN 20 MG TABLET PO (17:05)
[2022-10-17 20:13] VITALS: BP 114/63; PULSE 67; RESP 16; TEMP 36.6; O2SAT 93
[2022-10-17 20:35] VITALS: PULSE 67
[2022-10-17] MEDS: DONEPEZIL HCL 10 MG TABLET PO (20:35)
[2022-10-18 04:53] VITALS: BP 108/62; PULSE 60; RESP 16; TEMP 36.7; O2SAT 95
[2022-10-18 04:57] LABS: Basophils Percent Auto 0.3 % (0.2-1.2); Eosinophils Absolute Auto 0.2 K/mm3 (0-0.3); Hematocrit 32.3 % (42.0-52.0); Immature Granulocyte Absolute 0.08 K/mm3 (0.00-0.031); Immature Granulocyte Percent A 1.2 % (0-0.5); Lymphocytes Absolute Auto 0.92 K/mm3 (0.9-3.2); Lymphocytes Percent Auto 13.9 % (18.3-44.2); Mean Corpuscular Hemoglobin 27.9 pg (26-34); Mean Platelet Volume 8.8 fl (7.4-10.4); Monocytes Absolute Auto 0.5 K/mm3 (0.1-0.6); Monocytes Percent Auto 7.5 % (2.6-8.5); Neutrophils Absolute Auto 4.9 K/mm3 (1.3-6.7); Neutrophils Percent Auto 74.1 % (45.5-73.1); Platelet Count Result 224 k/mm3 (150-375); Red Blood Count 3.59 M/mm3 (4.6-6.20); Red Cell Distribution Width 15.5 % (11.5-14.5); White Blood Count 6.6 K/mm3 (4.5-10.0)
[2022-10-18 05:10] LABS: Anion Gap 2 mmol/L (8-16); Blood Urea Nitrogen 10 mg/dL (9-20); Calcium 7.8 mg/dL (8.4-10.2); Carbon Dioxide 37 mmol/L (22-30); Chloride 95 mmol/L (98-107); Estimated CRCL calculation 208 ml/min; Estimated Glomerular Filt Rate > 60; Glucose 124 mg/dL (65-110); Sodium 134 mmol/L (137-145)
[2022-10-18] MEDS: FOLIC ACID 1 MG TABLET PO (09:33)
[2022-10-18] MEDS: ESCITALOPRAM OXALATE 10 MG TABLET PO (09:33)
[2022-10-18] MEDS: allopurinoL 300 MG TABLET PO (09:33)
[2022-10-18] MEDS: FUROSEMIDE 40 MG TABLET PO (09:33)
[2022-10-18] MEDS: MEMANTINE 5 MG TABLET PO ×2 (09:33→18:07)
[2022-10-18 09:34] VITALS: PULSE 62
[2022-10-18] MEDS: FLECAINIDE ACETATE 50 MG TABLET 150 MG PO ×2 (09:34→22:42)
[2022-10-18] MEDS: polyethylene glycoL 3350 17 GM POWD.PACK PO (09:34)
[2022-10-18] MEDS: EUCERIN CREAM 454 GM JAR 1 APPLIC TOPICAL (09:36)
[2022-10-18] MEDS: TOLNAFTATE 1% POWDER 45 GM BTL 1 APPLIC TOPICAL ×2 (09:36→22:43)
[2022-10-18] MEDS: SILVERGEL (ELTA) 45 ML 1 APPLIC TOPICAL (09:36)
[2022-10-18] MEDS: CEFEPIME 2 GM/NS 50 ML 2 GM/50 ML BAG IVPB ×2 (09:54→22:43)
[2022-10-18] MEDS: POTASSIUM CHLORIDE 20 MEQ ER TABLET 40 MEQ PO (13:34)
[2022-10-18 14:00] VITALS: BP 94/61; PULSE 64; RESP 16; TEMP 36.6; O2SAT 94
[2022-10-18] MEDS: RIVAROXABAN 20 MG TABLET PO (18:07)
[2022-10-18] MEDS: TAMSULOSIN HCL 0.4 MG CAPSULE PO (18:07)
[2022-10-18 19:37] VITALS: BP 103/53; PULSE 65; RESP 16; TEMP 36.4; O2SAT 92
[2022-10-18 22:42] VITALS: PULSE 65
[2022-10-18] MEDS: DONEPEZIL HCL 10 MG TABLET PO (22:42)
[2022-10-18] MEDS: COLLAGENASE OINT 30 GM TUBE 1 APPLIC TOPICAL (22:43)
[2022-10-19 04:51] VITALS: BP 102/55; PULSE 63; RESP 16; TEMP 37.1; O2SAT 93
[2022-10-19 05:32] LABS: Blood Urea Nitrogen 11 mg/dL (9-20); Calcium 8.1 mg/dL (8.4-10.2); Carbon Dioxide > 40 mmol/L (22-30); Chloride 97 mmol/L (98-107); Estimated CRCL calculation 253 ml/min; Estimated Glomerular Filt Rate > 60; Glucose 108 mg/dL (65-110); Potassium 3.3 mmol/L (3.4-5.0); Sodium 137 mmol/L (137-145)
[2022-10-19 09:31] VITALS: PULSE 63
[2022-10-19] MEDS: ESCITALOPRAM OXALATE 10 MG TABLET PO (09:31)
[2022-10-19] MEDS: POTASSIUM CHLORIDE 20 MEQ ER TABLET 40 MEQ PO (09:31)
[2022-10-19] MEDS: FLECAINIDE ACETATE 50 MG TABLET 150 MG PO ×2 (09:31→20:17)
[2022-10-19] MEDS: allopurinoL 300 MG TABLET PO (09:31)
[2022-10-19] MEDS: FUROSEMIDE 40 MG TABLET PO (09:33)
[2022-10-19] MEDS: FOLIC ACID 1 MG TABLET PO (09:33)
[2022-10-19] MEDS: MEMANTINE 5 MG TABLET PO ×2 (09:33→18:26)
[2022-10-19] MEDS: COLLAGENASE OINT 30 GM TUBE 1 APPLIC TOPICAL ×2 (09:34→20:22)
[2022-10-19] MEDS: EUCERIN CREAM 454 GM JAR 1 APPLIC TOPICAL (09:34)
[2022-10-19] MEDS: TOLNAFTATE 1% POWDER 45 GM BTL 1 APPLIC TOPICAL ×2 (09:35→20:22)
[2022-10-19] MEDS: SILVERGEL (ELTA) 45 ML 1 APPLIC TOPICAL (09:35)
[2022-10-19] MEDS: polyethylene glycoL 3350 17 GM POWD.PACK PO (09:38)
[2022-10-19] MEDS: CEFEPIME 2 GM/NS 50 ML 2 GM/50 ML BAG IVPB ×2 (09:54→20:17)
[2022-10-19 14:39] VITALS: BP 104/71; PULSE 83; RESP 18; TEMP 36.1; O2SAT 96
[2022-10-19] MEDS: RIVAROXABAN 20 MG TABLET PO (18:26)
[2022-10-19] MEDS: TAMSULOSIN HCL 0.4 MG CAPSULE PO (18:26)
[2022-10-19 20:17] VITALS: PULSE 80
[2022-10-19] MEDS: DONEPEZIL HCL 10 MG TABLET PO (20:17)
[2022-10-19 21:09] VITALS: BP 106/54; PULSE 70; RESP 18; TEMP 36.7; O2SAT 93
[2022-10-20 05:37] LABS: Basophils Percent Auto 0.5 % (0.2-1.2); Eosinophils Absolute Auto 0.2 K/mm3 (0-0.3); Eosinophils Percent Auto 3.1 % (0-4.4); Hematocrit 31.1 % (42.0-52.0); Hemoglobin 9.6 g/dL (14.0-18.0); Immature Granulocyte Absolute 0.03 K/mm3 (0.00-0.031); Immature Granulocyte Percent A 0.5 % (0-0.5); Lymphocytes Absolute Auto 1.21 K/mm3 (0.9-3.2); Lymphocytes Percent Auto 19.5 % (18.3-44.2); Mean Corpuscular HGB Conc 30.9 g/dl (32-36); Mean Corpuscular Hemoglobin 28.1 pg (26-34); Mean Corpuscular Volume 90.9 fl (80-100); Monocytes Absolute Auto 0.5 K/mm3 (0.1-0.6); Monocytes Percent Auto 7.4 % (2.6-8.5); Neutrophils Absolute Auto 4.3 K/mm3 (1.3-6.7); Platelet Count Result 217 k/mm3 (150-375); Red Blood Count 3.42 M/mm3 (4.6-6.20); Red Cell Distribution Width 16.2 % (11.5-14.5); White Blood Count 6.2 K/mm3 (4.5-10.0)
[2022-10-20 05:45] VITALS: BP 105/49; PULSE 60; RESP 18; TEMP 36.7; O2SAT 91
[2022-10-20 05:53] LABS: Alanine Aminotransferase 9 U/L (6-50); Albumin Level 2.7 g/dL (3.5-5.1); Alkaline Phosphatase 100 U/L (38-126); Anion Gap 0 mmol/L (8-16); Aspartate Amino Transferase 20 U/L (17-59); Bilirubin,Total 0.7 mg/dL (0.2-1.3); Blood Urea Nitrogen 13 mg/dL (9-20); Calcium 7.9 mg/dL (8.4-10.2); Carbon Dioxide 38 mmol/L (22-30); Chloride 98 mmol/L (98-107); Estimated CRCL calculation 253 ml/min; Estimated Glomerular Filt Rate > 60; Glucose 112 mg/dL (65-110); Magnesium 2.2 mg/dL (1.6-2.3); Potassium 3.5 mmol/L (3.4-5.0); Sodium 136 mmol/L (137-145)
[2022-10-20 08:00] VITALS: PULSE 80; RESP 18; O2SAT 91
[2022-10-20 09:09] VITALS: PULSE 80
[2022-10-20] MEDS: POTASSIUM CHLORIDE 20 MEQ ER TABLET PO (09:09)
[2022-10-20] MEDS: allopurinoL 300 MG TABLET PO (09:09)
[2022-10-20] MEDS: ESCITALOPRAM OXALATE 10 MG TABLET PO (09:09)
[2022-10-20] MEDS: FOLIC ACID 1 MG TABLET PO (09:09)
[2022-10-20] MEDS: FUROSEMIDE 40 MG TABLET PO (09:09)
[2022-10-20] MEDS: FLECAINIDE ACETATE 50 MG TABLET 150 MG PO ×2 (09:09→20:23)
[2022-10-20] MEDS: COLLAGENASE OINT 30 GM TUBE 1 APPLIC TOPICAL ×2 (09:10→20:23)
[2022-10-20] MEDS: MEMANTINE 5 MG TABLET PO ×2 (09:10→17:29)
[2022-10-20] MEDS: EUCERIN CREAM 454 GM JAR 1 APPLIC TOPICAL (09:10)
[2022-10-20] MEDS: TOLNAFTATE 1% POWDER 45 GM BTL 1 APPLIC TOPICAL ×2 (09:10→20:24)
[2022-10-20] MEDS: polyethylene glycoL 3350 17 GM POWD.PACK PO (09:10)
[2022-10-20] MEDS: SILVERGEL (ELTA) 45 ML 1 APPLIC TOPICAL (09:11)
--- NOTE | 2022-10-20 13:25 | PCNFU ---
Nutrition Follow-Up Complete: Increased protein energy needs related to poor appetite, wounds as evidenced by report of poor intake and stage III pressure injury to buttock present on admission Adequate PO intake at least 75% meals and supplements to promote wound healing Goal: Pt current nutrition is . Nutrition recommendation: Last recorded weight is 290 kg. Bowel Motility: Labs Reviewed: Meds Noted: Skin: Additional Notes: Monitoring intakes, weights, labs, supplement tolerance, wound healing, plan of care Follow up every 5 days
--- NOTE | 2022-10-20 13:25 | PCNFU ---
Nutrition Follow-Up Complete: Increased protein energy needs related to poor appetite, wounds as evidenced by report of poor intake and stage III pressure injury to buttock present on admission goal: Adequate PO intake at least 75% meals and supplements to promote wound healing Patient is progressing towards goal. We will continue current goal. Pt current nutrition is Heart Healthy. Last recorded weight is 290 kg. Bowel Motility:Last reported BM 10/17 Labs Reviewed:Glu 112, Cr 0.4,Alb 2.7 Meds Noted:Miralax, Lasix, Folic Acid Skin: Stage III-buttock Additional Notes: Patient remains on a heart healthy diet. Oral Intake is being tolerated at 50-90 % of meals. Diet supplements continue of Ensure Compact BID and Nabor BID. Agree with diet orders. Monitoring intakes, weights, labs, supplement tolerance, wound healing, plan of care Follow up every 7 days
[2022-10-20 14:55] VITALS: BP 110/55; PULSE 61; RESP 20; TEMP 36.3; O2SAT 92
--- NOTE | 2022-10-20 15:52 | P.PNIM_ITS ---
Progress Note: A&P Assessment and Plan (1) Urinary tract infection: Qualifiers: Hematuria presence: without hematuria Urinary tract infection type: acute cystitis Qualified Code(s): N30.00 - Acute cystitis without hematuria Code(s): N39.0 - Urinary tract infection, site not specified Status: Acute (2) Fecal impaction: Code(s): K56.41 - Fecal impaction Status: Acute (3) Right knee pain: Code(s): M25.561 - Pain in right knee Status: Acute (4) Elevated bilirubin: Code(s): R17 - Unspecified jaundice Status: Acute (5) Hypokalemia: Code(s): E87.6 - Hypokalemia Status: Acute (6) Paroxysmal atrial fibrillation: Code(s): I48.0 - Paroxysmal atrial fibrillation Status: Acute (7) Chronic anticoagulation: Code(s): Z79.01 - terminal makeup operator (current) use of anticoagulants Status: Acute (8) Hypertension: Code(s): I10 - Essential (primary) hypertension Status: Acute Plan The patient presented to the emergency department from home for evaluation of weakness the last couple of days. Labs, imaging, EKG, and all reports were personally reviewed. He was recently started on antibiotics for urinary tract i nfection however has not noticed any improvement. Urinalysis today still looks grossly infected. He has been started on ceftriaxone, pending urine culture. Potassium is low and will be replaced and monitored. CT shows evidence of fecal impaction with possible early stercoral colitis. Soapsuds enema ordered. Start MiraLax daily. Right knee x-ray noted, he is bed-bound and has had no recent falls thus this is not likely an acute issue. Analgesics are available as needed. Total bilirubin is a bit elevated though his other LFTs are well within normal limits. CT of the abdomen/pelvis did not show any acute findings of the biliary tree. Repeat LFTs in a.m.. He is in a sinus rhythm. Continue flecainide. Also continue Xarelto for stroke prophylaxis. Blood pressures were reviewed and they have been stable. His home medications will be reviewed and resumed as appropriate. Findings and treatment plan were discussed with the patient and his . Questions were solicited and answered to satis faction. 10/16/2022 interval history: 72 y/o male presented with weakness and dysuria and found to have significant constipation, patient did have BM on 10/10 and BM since will continue colace and Miralax and stats feels better, urine culture is growing Pseudomonas aeruginosa pansensitive on 10/13 discussed with ID pharmacist and started cefepime 2gram twice a day for 4/7 days until 10/19, discussed with palliative care physician, may arrange for placement to received IV Abx, his weakness most likely stemming from constipations and UTI, patient is morbidly obese and has chronic statsis dermatitis on 10/13 patient had open sore with significant bleeding was seen by general surgeon and place sutures to stop bleeding, will have PT/OT evaluate the patient, patient will benefit going to acute rehab, on 10/13patient was present in the room and gave updates, will continue to monitor 10/17/2022:[age]-year-old male with proximal atrial fibrillation on anticoagulation hypertension hyperlipidemia sleep apnea BPH history of DVT and PE presented for evaluation of weakness. Bedridden at baseline recently diagnosed UTI and a taking antibiotics. Initial workup with leukocytosis 14.9 hypokalemia of 3.2 normal lactic acid elevated CRP urine positive for UTI CT abdomen pelvis with fecal impaction with findings concerning for early stercoral colitis and urinary bladder wall thickening. Chest x-ray with mild interstitial edema. ICD x-r
[2022-10-20] MEDS: RIVAROXABAN 20 MG TABLET PO (17:29)
[2022-10-20] MEDS: TAMSULOSIN HCL 0.4 MG CAPSULE PO (17:29)
[2022-10-20 20:23] VITALS: PULSE 64
[2022-10-20] MEDS: DONEPEZIL HCL 10 MG TABLET PO (20:23)
[2022-10-20 22:13] VITALS: BP 105/55; PULSE 61; RESP 16; TEMP 36.3; O2SAT 94
[2022-10-21] VITALS (7 sets, daily range): BP systolic 112–131; BP diastolic 55–69; PULSE 62–80; RESP 16–18; TEMP 36.2–36.7; O2SAT 93–95
[2022-10-21 06:17] LABS: Anion Gap 3 mmol/L (8-16); Blood Urea Nitrogen 11 mg/dL (9-20); Calcium 8.2 mg/dL (8.4-10.2); Carbon Dioxide 37 mmol/L (22-30); Chloride 99 mmol/L (98-107); Estimated CRCL calculation 208 ml/min; Estimated Glomerular Filt Rate > 60; Glucose 115 mg/dL (65-110); Potassium 3.4 mmol/L (3.4-5.0); Sodium 139 mmol/L (137-145)
[2022-10-21] MEDS: allopurinoL 300 MG TABLET PO (09:21)
[2022-10-21] MEDS: FOLIC ACID 1 MG TABLET PO (09:21)
[2022-10-21] MEDS: FLECAINIDE ACETATE 50 MG TABLET 150 MG PO ×2 (09:21→20:45)
[2022-10-21] MEDS: MEMANTINE 5 MG TABLET PO ×2 (09:21→17:23)
[2022-10-21] MEDS: ESCITALOPRAM OXALATE 10 MG TABLET PO (09:21)
[2022-10-21] MEDS: FUROSEMIDE 40 MG TABLET PO (09:21)
[2022-10-21] MEDS: SILVERGEL (ELTA) 45 ML 1 APPLIC TOPICAL (09:22)
[2022-10-21] MEDS: EUCERIN CREAM 454 GM JAR 1 APPLIC TOPICAL (09:22)
[2022-10-21] MEDS: COLLAGENASE OINT 30 GM TUBE 1 APPLIC TOPICAL ×2 (09:22→20:44)
[2022-10-21] MEDS: TOLNAFTATE 1% POWDER 45 GM BTL 1 APPLIC TOPICAL ×2 (09:22→20:45)
[2022-10-21] MEDS: TAMSULOSIN HCL 0.4 MG CAPSULE PO (17:23)
[2022-10-21] MEDS: RIVAROXABAN 20 MG TABLET PO (17:23)
[2022-10-21] MEDS: DONEPEZIL HCL 10 MG TABLET PO (20:45)
[2022-10-22 05:02] LABS: Basophils Percent Auto 0.3 % (0.2-1.2); Eosinophils Absolute Auto 0.2 K/mm3 (0-0.3); Eosinophils Percent Auto 3.3 % (0-4.4); Hematocrit 32.7 % (42.0-52.0); Immature Granulocyte Absolute 0.03 K/mm3 (0.00-0.031); Immature Granulocyte Percent A 0.5 % (0-0.5); Lymphocytes Absolute Auto 1.13 K/mm3 (0.9-3.2); Mean Corpuscular HGB Conc 30.6 g/dl (32-36); Mean Corpuscular Hemoglobin 27.8 pg (26-34); Mean Corpuscular Volume 90.8 fl (80-100); Mean Platelet Volume 8.8 fl (7.4-10.4); Monocytes Absolute Auto 0.4 K/mm3 (0.1-0.6); Monocytes Percent Auto 6.3 % (2.6-8.5); Neutrophils Absolute Auto 4.8 K/mm3 (1.3-6.7); Neutrophils Percent Auto 72.6 % (45.5-73.1); Platelet Count Result 204 k/mm3 (150-375); Red Cell Distribution Width 16.1 % (11.5-14.5); White Blood Count 6.7 K/mm3 (4.5-10.0)
[2022-10-22 05:18] LABS: Anion Gap -1 mmol/L (8-16); Blood Urea Nitrogen 12 mg/dL (9-20); Calcium 8.1 mg/dL (8.4-10.2); Carbon Dioxide 37 mmol/L (22-30); Chloride 99 mmol/L (98-107); Estimated CRCL calculation 272 ml/min; Estimated Glomerular Filt Rate > 60; Glucose 104 mg/dL (65-110); Potassium 3.5 mmol/L (3.4-5.0); Sodium 135 mmol/L (137-145)
[2022-10-22 06:52] VITALS: BP 103/59; PULSE 58; RESP 16; TEMP 36.4; O2SAT 93
[2022-10-22 08:00] VITALS: PULSE 84; RESP 16; O2SAT 93
[2022-10-22 08:35] VITALS: PULSE 84
[2022-10-22] MEDS: POTASSIUM CHLORIDE 20 MEQ ER TABLET PO (08:35)
[2022-10-22] MEDS: ESCITALOPRAM OXALATE 10 MG TABLET PO (08:35)
[2022-10-22] MEDS: allopurinoL 300 MG TABLET PO (08:35)
[2022-10-22] MEDS: MEMANTINE 5 MG TABLET PO (08:35)
[2022-10-22] MEDS: FLECAINIDE ACETATE 50 MG TABLET 150 MG PO (08:35)
[2022-10-22] MEDS: FUROSEMIDE 40 MG TABLET PO (08:35)
[2022-10-22] MEDS: FOLIC ACID 1 MG TABLET PO (08:35)
[2022-10-22] MEDS: TOLNAFTATE 1% POWDER 45 GM BTL 1 APPLIC TOPICAL (08:36)
[2022-10-22] MEDS: SILVERGEL (ELTA) 45 ML 1 APPLIC TOPICAL (08:36)
[2022-10-22] MEDS: polyethylene glycoL 3350 17 GM POWD.PACK PO (08:36)
[2022-10-22] MEDS: COLLAGENASE OINT 30 GM TUBE 1 APPLIC TOPICAL (08:36)
[2022-10-22] MEDS: EUCERIN CREAM 454 GM JAR 1 APPLIC TOPICAL (08:36)
--- NOTE | 2022-10-22 09:57 | PM.DS ---
DS: Admitting Diagnosis Discharge Date today Admitting Diagnosis (1) Urinary tract infection: ?Qualifiers: ?Hematuria presence:?without hematuria??Urinary tract infection type:?acute cystitis? Qualified Code(s):?N30.00 - Acute cystitis without hematuria ?Code(s): N39.0 - Urinary tract infection, site not specified ?Status:?Acute (2) Fecal impaction: ?Code(s): K56.41 - Fecal impaction ?Status:?Acute (3) Right knee pain: ?Code(s): M25.561 - Pain in right knee ?Status:?Acute (4) Elevated bilirubin: ?Code(s): R17 - Unspecified jaundice ?Status:?Acute (5) Hypokalemia: ?Code(s): E87.6 - Hypokalemia ?Status:?Acute (6) Paroxysmal atrial fibrillation: ?Code(s): I48.0 - Paroxysmal atrial fibrillation ?Status:?Acute (7) Chronic anticoagulation: ?Onset Date:?~10/22/22 ?Code(s): Z79.01 - [facility] (current) use of anticoagulants ?Status:?Acute (8) Hypertension: ?Code(s): I10 - Essential (primary) hypertension ?Status:?Acute DS: Discharge Diagnosis Discharge Diagnosis (1) Urinary tract infection: Qualifiers: Hematuria presence: without hematuria Urinary tract infection type: acute cystitis Qualified Code(s): N30.00 - Acute cystitis without hematuria Code(s): N39.0 - Urinary tract infection, site not specified Status: Acute (2) Fecal impaction: Code(s): K56.41 - Fecal impaction Status: Acute (3) Right knee pain: Code(s): M25.561 - Pain in right knee Status: Acute (4) Elevated bilirubin: Code(s): R17 - Unspecified jaundice Status: Acute (5) Hypokalemia: Code(s): E87.6 - Hypokalemia Status: Acute (6) Paroxysmal atrial fibrillation: Code(s): I48.0 - Paroxysmal atrial fibrillation Status: Acute (7) Chronic anticoagulation: Onset Date: ~10/22/22 Code(s): Z79.01 - [facility] (current) use of anticoagulants Status: Acute (8) Hypertension: Code(s): I10 - Essential (primary) hypertension Status: Acute DS: Summary Hospital Course Hospital Course: The patient presented to the emergency department from home for evaluation of weakness the last couple of days. Labs, imaging, EKG, and all reports were personally reviewed. He was recently started on antibiotics for urinary tract infection however has not noticed any improvement. Urinalysis today still looks grossly infected. He has been started on ceftriaxone, pending urine culture. Potassium is low and will be replaced and monitored. CT shows evidence of fecal impaction with possible early stercoral colitis. Soapsuds enema ordered. Start MiraLax daily. Right knee x-ray noted, he is bed-bound and has had no recent falls thus this is not likely an acute issue. Analgesics are available as needed. Total bilirubin is a bit elevated though his other LFTs are well within normal limits. CT of the abdomen/pelvis did not show any acute findings of the biliary tree. Repeat LFTs in a.m.. He is in a sinus rhythm. Continue flecainide. Also continue Xarelto for stroke prophylaxis. Blood pressures were reviewed and they have been stable. His home medications will be reviewed and resumed as appropriate. Findings and treatment plan were discussed with the patient and his . Questions were solicited and answered to satisfaction. 10/16/2022 interval history: 72 y/o male presented with weakness and dysuria and found to have significant constipation, patient did have BM on 10/10 and BM since will continue colace and Miralax and stats feels better, urine culture is growing Pseudomonas aeruginosa pansensitive on 10/13 discussed with ID pharmacist and started cefepime 2gram twice a day for 4/7 days until 10/19, discussed with manager managed care, may arrange for placement to received IV Abx, his weakness most likely stemming from constipations and UTI, patient is morbidly obese and has chronic statsis
== END 2022-10-22 13:11 | disposition home health service (06) | DRG 674 ==
LOC: ANHED 18:10 → ANH3MED 20:39 → ANH2MED 10-10 11:35
PROVIDERS: Hospitalist; Internal Medicine; Physician Assistant; Surgery; Admitting Provider Family Medicine; Emergency Provider Emergency Medicine; PCP Nurse Practitioner Family; Visit Provider Hospitalist
PROC: 0HCLXZZ Extirpation of Matter from Left Lower Leg Skin, External Approach (ICD-10-PCS; principal; 2022-10-13 16:30)
DX: N39.0 Urinary tract infection, site not specified (principal); L97.922 Non-pressure chronic ulcer of unspecified part of left lower leg with fat layer exposed; L89.322 Pressure ulcer of left buttock, stage 2; E87.6 Hypokalemia; I10 Essential (primary) hypertension; I73.9 Peripheral vascular disease, unspecified; I87.2 Venous insufficiency (chronic) (peripheral); I48.0 Paroxysmal atrial fibrillation; B96.5 Pseudomonas (aeruginosa) (mallei) (pseudomallei) as the cause of diseases classified elsewhere; D64.9 Anemia, unspecified; K21.9 Gastro-esophageal reflux disease without esophagitis; K58.9 Irritable bowel syndrome, unspecified; E66.01 Morbid (severe) obesity due to excess calories; N40.0 Benign prostatic hyperplasia without lower urinary tract symptoms; K56.41 Fecal impaction; M79.81 Nontraumatic hematoma of soft tissue; M19.90 Unspecified osteoarthritis, unspecified site; M10.9 Gout, unspecified; G20 Parkinson's disease; G47.33 Obstructive sleep apnea (adult) (pediatric); G62.9 Polyneuropathy, unspecified; F03.90 Unspecified dementia, unspecified severity, without behavioral disturbance, psychotic disturbance, mood disturbance, and anxiety; F32.A Depression, unspecified; F41.9 Anxiety disorder, unspecified; Z96.652 Presence of left artificial knee joint; Z79.01 Long term (current) use of anticoagulants; Z86.718 Personal history of other venous thrombosis and embolism; Z74.01 Bed confinement status; Z86.711 Personal history of pulmonary embolism; Z87.442 Personal history of urinary calculi; Z87.11 Personal history of peptic ulcer disease; Z68.39 Body mass index [BMI] 39.0-39.9, adult
CPT/HCPCS: 36415; 36430; 71045; 73562; 74176; 80048; 80053; 81001; 83605; 83690; 83735; 85014; 85018; 85025; 85027; 85610; 85730; 86140; 86900; 86901; 87040; 87077; 87086; 87088; 87186; 93005; 96360; 96361; 97161; 99285; A9270; J0330; J0690; J0692; J0696; J2270; J2370; J2405; J2704; J3010; J3480; J7030; J7040; J7050; J7120; P9017

== ENCOUNTER 2022-11-21 14:58 | Outpatient (NON) | payer MEDICARE, SELFPAY | END 2022-11-21 14:59 | disposition home or self-care (01) | LOC: CHSLAB 15:05 | DX: S81.802A Unspecified open wound, left lower leg, initial encounter (principal) | CPT/HCPCS: 87070; 87147; 87186; 87205 ==

== ENCOUNTER 2022-12-24 19:04 | Inpatient (IN) | payer OTHER, MEDICARE, SELFPAY ==
[2022-12-24 19:08] VITALS: BP 116/72; PULSE 70; RESP 15; TEMP 36.6; O2SAT 94
--- NOTE | 2022-12-24 19:29 | ED.GENADULT ---
HPI - General Adult General Chief complaint: Unspecified Stated complaint: buttock ulcer Time Seen by Provider: 12/24/22 19:09 Source: patient and family () Limitations: no limitations History of Present Illness HPI narrative: Patient is a 72-year-old male present to the emergency department accompanied by his via EMS for placement. notes that he has been receiving home health care and bedbound for the past 5 to 6 years and has been on a hospital bed and she feels as though she is unable to provide him the care that he needs any longer and wants the patient placed into a assisted living facility. and patient deny any recent injuries, recent illness, fever, vomiting, diarrhea, cough, chest pain, shortness of breath, diarrhea, vomiting, dysuria, hematuria, urinary frequency, abdominal pain, numbness, weakness. Patient denies any current complaints. EMS notes that the patient was soiled with his own feces and urine and laying in bed when he was last seen by his home health care nurse and was overwhelmed prompting them to come into seek placement at this time. Related Data Home Medications Medication Instructions Recorded Confirmed acetaminophen 500 mg tablet 500 mg PO Q6H PRN Pain 09/28/19 12/25/22 donepezil 10 mg tablet 10 mg PO HS 04/03/21 12/25/22 escitalopram oxalate 10 mg tablet 10 mg PO DAILY 10/09/22 12/25/22 folic acid 1 mg tablet 1 mg PO DAILY 10/09/22 12/25/22 memantine 5 mg tablet 5 mg PO BID 10/09/22 12/25/22 potassium chloride 20 mEq 20 meq PO 3XW 10/09/22 12/25/22 tablet,extended release rivaroxaban 20 mg tablet (Xarelto) 20 mg PO .ALPA 10/09/22 12/25/22 Allergies Allergy/AdvReac Type Severity Reaction Status Date / Time ampicillin Allergy Unknown Hives Verified 12/24/22 23:27 iodine Allergy Unknown Hives Verified 12/24/22 23:27 Penicillins Allergy Unknown Hives Verified 12/24/22 23:27 Contrast Media Allergy Severe hives Uncoded 12/24/22 23:27 Review of Systems Review of Systems: A 10 system review of systems was completed on the patient and is negative except for what is stated in the HPI. Nursing and ancillary documentation was reviewed. PMFSH Past Medical History Medical History Anxiety Arthritis Benign prostatic hyperplasia Bilateral ankle fractures Borderline diabetes Chronic anemia Chronic anticoagulation (~10/22/22) Deep venous thrombosis Dementia Depression Gastroesophageal reflux disease Gout History of peptic ulcer History of pericarditis Hypertension Irritable bowel syndrome Kidney stones Obstructive sleep apnea on CPAP Osteomyelitis Parkinsons disease Paroxysmal atrial fibrillation Peripheral neuropathy Peripheral vascular disease Pneumonia Pulmonary embolism Surgical History Surgical History History of appendectomy History of arthroplasty of left knee History of arthroscopic knee surgery History of cardiac catheterization History of cholecystectomy History of ERCP History of inguinal hernia repair History of left knee replacement History of left nephrectomy (1956) History of umbilical hernia repair Family History Family History Mother Hypertension, Onset Age: 79 Family history of diabetes mellitus in first degree relative, Onset Age: 79 Family history of arthritis, Onset Age: 79 Family history of congestive heart failure, Onset Age: 79 Sibling Hypertension Carcinoma of colon Father Hypertension, Onset Age: 80 Family history of Parkinson's disease Family history of Alzheimer's disease, Onset Age: 80 Family history of diabetes mellitus in first degree relative, Onset Age: 80 Carcinoma of colon Social History Social History Social History: The patient is and lives with his in [place].
--- NOTE | 2022-12-24 19:53 | ECG_ITS ---
Measurements Intervals [place] Rate: 59 P: 7 LA: 229 QRS: 33 QRSD: 131 T: 41 QT: 361 QTc: 360 Interpretive Statements SINUS BRADYCARDIA WITH FIRST DEGREE AV BLOCK INTRAVENTRICULAR CONDUCTION DELAY BORDERLINE T WAVE ABNORMALITY- ANTERIOR LEADS BASELINE ARTIFACT- I, II, III, AVR, AVL, AVF, V1, V3-V5 BORDERLINE ECG COMPARED TO ECG 10/09/2022 16:02:57 SINUS BRADYCARDIA NOW PRESENT Electronically Signed On 12-25-2022 8:14:16 CDT by Byron Bhatia D.O.
[2022-12-24 20:08] LABS: Basophils Percent Auto 0.3 % (0.2-1.2); Eosinophils Absolute Auto 0.2 K/mm3 (0-0.3); Eosinophils Percent Auto 2.7 % (0-4.4); Hematocrit 38.4 % (42.0-52.0); Hemoglobin 11.8 g/dL (14.0-18.0); Immature Granulocyte Absolute 0.03 K/mm3 (0.00-0.031); Immature Granulocyte Percent A 0.4 % (0-0.5); Lymphocytes Absolute Auto 0.97 K/mm3 (0.9-3.2); Lymphocytes Percent Auto 13.6 % (18.3-44.2); Mean Corpuscular HGB Conc 30.7 g/dl (32-36); Mean Corpuscular Hemoglobin 26.8 pg (26-34); Mean Corpuscular Volume 87.1 fl (80-100); Mean Platelet Volume 9.8 fl (7.4-10.4); Monocytes Absolute Auto 0.4 K/mm3 (0.1-0.6); Monocytes Percent Auto 6.2 % (2.6-8.5); Neutrophils Absolute Auto 5.5 K/mm3 (1.3-6.7); Neutrophils Percent Auto 76.8 % (45.5-73.1); Platelet Count Result 243 k/mm3 (150-375); Red Blood Count 4.41 M/mm3 (4.6-6.20); White Blood Count 7.1 K/mm3 (4.5-10.0)
[2022-12-24 20:18] LABS: INR 1.6; Prothrombin Time 19.7 Seconds (11.1-14.7)
[2022-12-24 20:20] LABS: Alanine Aminotransferase 8 U/L (6-50); Albumin Level 3.9 g/dL (3.5-5.1); Alkaline Phosphatase 145 U/L (38-126); Anion Gap 5 mmol/L (8-16); Aspartate Amino Transferase 21 U/L (17-59); Bilirubin,Total 0.7 mg/dL (0.2-1.3); Blood Urea Nitrogen 13 mg/dL (9-20); CRP 2.2 mg/dL (<1.0); Calcium 8.8 mg/dL (8.4-10.2); Carbon Dioxide 33 mmol/L (22-30); Chloride 99 mmol/L (98-107); Estimated CRCL calculation 160 ml/min; Estimated Glomerular Filt Rate > 60; Glucose 141 mg/dL (65-110); Magnesium 1.8 mg/dL (1.6-2.3); Potassium 3.3 mmol/L (3.4-5.0); Sodium 137 mmol/L (137-145)
[2022-12-24 21:08] LABS: Appearance Urine Turbid (Clear); Bacteria Urine 4+ /hpf; Bilirubin Urine Negative (Negative); Blood Urine 1+ (Negative); Color Urine Yellow (Yellow); Glucose Urine UA Negative (Negative); Ketones Urine Negative (Negative); Leukocyte Esterase Ur 3+ LEU/UL (Negative); Nitrate Urine Positive (Negative); Non Pathogenic Casts 0-2; Protein Urine Negative (Negative); RBC Urine 0-2 /hpf (0-2); Specific Grav Ur 1.014 (1.001-1.035); Squamous Epithelial Cell Urine Occasional /hpf (Few); WBC Urine >100 /hpf
[2022-12-24 21:11] LABS: Add Urine Microscopic? YES
[2022-12-24] MEDS: POTASSIUM CHLORIDE 20 MEQ PACKET (FOR LIQUID) PO (21:11)
[2022-12-24 21:40] VITALS: BP 114/76; PULSE 66; RESP 15; O2SAT 100
[2022-12-24] MEDS: cefTRIAXone 2 GM/NS 100 ML 2 GM/100 ML BAG IVPB (22:34)
[2022-12-24 22:35] VITALS: BP 106/70; PULSE 62; RESP 15; O2SAT 100
--- NOTE | 2022-12-24 23:14 | PM.IMHP ---
H&P: HPI History of Present Illness Date/Time: 12/24/22 23:14 Chief Complaint: generalized weakness Narrative: This is a 72-year-old male with past medical history significant dementia, bed ridden, chronic lymphedema, chronic decubitus ulcers, benign prostatic hyperplasia chronic anticoagulation deep vein thrombosis gastroesophageal reflux disease, hypertension obstructive sleep apnea on CPAP, Parkinson's, paroxysmal atrial fibrillation peripheral vascular disease. Patient was brought to the emergency room for evaluation S states that is getting increasingly difficult to take care of him at home takes taxing effort to move and get him out of bed and needs assistance with all his activities is 77 years old and is agreeable in placing him at a [facility]. Preliminary workup was significant for urinalysis with numerous WBCs present Rate 59 HI 229 QRSd 131 QT 361 QTc 360 --Napavine-- P 7 QRS 33 T 41 SINUS BRADYCARDIA WITH FIRST DEGREE AV BLOCK INTRAVENTRICULAR CONDUCTION DELAY [130+ ms QRS DURATION] PROBABLE LATERAL MYOCARDIAL INFARCTION , PROBABLY OLD [35 ms Q WAVE IN I/aVL/V5/V6] POSSIBLE INFERIOR MYOCARDIAL INFARCTION , PROBABLY OLD [30 ms Q WAVE IN II/aVF] COMPARED TO ECG 10/09/2022 16:02:57 SINUS BRADYCARDIA NOW PRESENT INTRAVENTRICULAR CONDUCTION DELAY NOW PRESENT Review of Systems Review of Systems: ROS unobtainable: Yes unobtainable due to medical condition ( dementia) [facility] Past Medical History Medical History (Updated 12/24/22 @ 22:41 by Anant Gonzalez DO) Anxiety Arthritis Benign prostatic hyperplasia Bilateral ankle fractures Borderline diabetes Chronic anemia Chronic anticoagulation (~10/22/22) Deep venous thrombosis Dementia Depression Gastroesophageal reflux disease Gout History of peptic ulcer History of pericarditis Hypertension Irritable bowel syndrome Kidney stones Obstructive sleep apnea on CPAP Osteomyelitis Parkinsons disease Paroxysmal atrial fibrillation Peripheral neuropathy Peripheral vascular disease Pneumonia Pulmonary embolism Surgical History Surgical History History of appendectomy History of arthroplasty of left knee History of arthroscopic knee surgery History of cardiac catheterization History of cholecystectomy History of ERCP History of inguinal hernia repair History of left knee replacement History of left nephrectomy (1956) History of umbilical hernia repair Family History Family History Mother Hypertension, Onset Age: 79 Family history of diabetes mellitus in first degree relative, Onset Age: 79 Family history of arthritis, Onset Age: 79 Family history of congestive heart failure, Onset Age: 79 Sibling Hypertension Carcinoma of colon Father Hypertension, Onset Age: 80 Family history of Parkinson's disease Family history of Alzheimer's disease, Onset Age: 80 Family history of diabetes mellitus in first degree relative, Onset Age: 80 Carcinoma of colon Social History Social History Social History: The patient is and lives with his in [place]. 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 They have 2 children. He is retired from [employer]. Lifelong nonsmoker. No alcohol or illicit substance abuse. His , Araceli Zamora, as his surrogate decision-maker and he wishes to be a DNR. Smoking status: Never smoker Second hand tobacco smoke exposure: No Alcohol intake: never Substance use: never Substance use type: does not use Lack of Transportation: No Lack of Food: Never True Current Housing: I Have Housing Concerned About Future Housing: No Difficulty Paying Gas/Electric Bills: No Difficulty Paying for Meds: No Currently Unemployed: No Education: High School Diploma/GED Difficu
--- NOTE | 2022-12-24 23:38 | ADMGEN ---
This patient, Jorge Zamora, was admitted to [facility] Surg Room 321-02. Patient/family oriented to hospital policies and general routines including ID bracelet, bed and alarms, visiting hours, pain management, procedures, bathroom and other care routines, personal items, smoking policy, room service/diet, and visiting hours. Information on how to activate the Rapid Response Team has been discussed. Patient/Family are encouraged to report perceived risks to care and to ask questions if they do not understand what they are told or what they should do.
[2022-12-25] VITALS (8 sets, daily range): BP systolic 109–113; BP diastolic 62–75; PULSE 61–71; RESP 14–18; TEMP 35.8–36.4; O2SAT 93–96; BMI 38.0
[2022-12-25 09:03] LABS: Anion Gap 3 mmol/L (8-16); Blood Urea Nitrogen 11 mg/dL (9-20); Carbon Dioxide 37 mmol/L (22-30); Chloride 99 mmol/L (98-107); Estimated CRCL calculation 187 ml/min; Estimated Glomerular Filt Rate > 60; Glucose 113 mg/dL (65-110); Potassium 3.1 mmol/L (3.4-5.0); Sodium 139 mmol/L (137-145)
[2022-12-25] MEDS: FLECAINIDE ACETATE 50 MG TABLET 150 MG PO ×2 (10:02→20:21)
[2022-12-25] MEDS: MEMANTINE 5 MG TABLET PO ×2 (10:02→20:21)
[2022-12-25] MEDS: allopurinoL 300 MG TABLET PO (10:02)
[2022-12-25] MEDS: FOLIC ACID 1 MG TABLET PO (10:02)
[2022-12-25] MEDS: ESCITALOPRAM OXALATE 10 MG TABLET PO (10:02)
[2022-12-25] MEDS: SILVERGEL (ELTA) 45 ML 1 APPLIC TOPICAL (10:03)
--- NOTE | 2022-12-25 10:50 | PM.IMPN ---
Progress Note: A&P Assessment and Plan (1) Adult failure to thrive: Code(s): R62.7 - Adult failure to thrive Status: Acute Assessment and Plan: admit to regular medical floor PT OT consult supportive care (2) Pressure injury of left buttock, unstageable: Code(s): L89.320 - Pressure ulcer of left buttock, unstageable Status: Acute Assessment and Plan: around the clock turning schedule wound ET consult (3) Pressure injury of left leg, stage 2: Code(s): L89.892 - Pressure ulcer of other site, stage 2 Status: Acute Assessment and Plan: round the clock turning schedule wound care consult (4) Urinary tract infection: Code(s): N39.0 - Urinary tract infection, site not specified Status: Acute Assessment and Plan: started on Rocephin await cultures (5) Generalized weakness: Code(s): R53.1 - Weakness Status: Acute Assessment and Plan: likely secondary to chronic illness and deconditioning in the setting of acute urinary tract infection (6) AF (paroxysmal atrial fibrillation): Code(s): I48.0 - Paroxysmal atrial fibrillation Status: Acute Assessment and Plan: rate controlled anticoagulated (7) Morbid obesity: Code(s): E66.01 - Morbid (severe) obesity due to excess calories Status: Acute Assessment and Plan: calorie restricted diet (8) Chronic venous stasis dermatitis of both lower extremities: Code(s): I87.2 - Venous insufficiency (chronic) (peripheral) Status: Acute Assessment and Plan: compression stockings Subjective Date/time seen: 12/25/22 10:50 Interval history: No complaints Exam Narrative: patient is sitting in a stretcher Const: General: comfortable, no acute distress, well developed, alert, awake and average body habitus Nutritional Appearance: average body habitus Orientation/consciousness: Other orientation findings ( pleasantly demented) HENMT: Head: normal to inspection, normocephalic and atraumatic Ears: hearing grossly normal bilaterally Face/Nose/Sinus: normal facial exam Face and sinus: normal facial exam Eyes: General: appearance normal, both eyes and all related structures Pupils: Equal, round and reactive pupils present EOM: EOMs intact bilaterally Neck: Neck: full ROM, no lymphadenopathy and no JVD Thyroid: thyroid normal Lymphatic: no lymphadenopathy noted Resp: Effort & Inspection: normal respiratory effort and able to speak in complete sentences Auscultation: clear to auscultation bilaterally Cardio: Jugular venous distension: no JVD Rate: regular rate Rhythm: regular rhythm Heart sounds: S1 normal heart sound present and S2 normal heart sound present : General: Yes deferred Skin: Rashes: no rashes Wounds: no wounds Neuro: General: CN's II-XI intact bilaterally, Unable to assess gait and other ( dementia) Cranial nerves: Yes CN's II-XII intact bilaterally and Yes Equal, round and reactive pupils present Cognition (Neuro): abnormal cognition ( dementia) Speech: Other speech findings present (Neuro) ( dementia) Gait exam (Neuro): Unable to assess gait Motor exam (neuro): Motor abnormalities not present and Other motor observations present ( bed ridden) Extrem: General: edema bilateral (4+) Left lower extremity: lower leg Details: other ( wound) Psych: Appearance: grossly normal Objective Data Vital Signs Vital Signs: Vital Signs - 24 hr 12/24/22 19:08 12/24/22 21:40 12/24/22 22:35 Temperature 97.9 F Pulse Rate 70 66 62 Respiratory Rate 15 15 15 Blood Pressure 116/72 114/76 106/70 Pulse Oximetry 94 100 100 Oxygen Delivery Room Air 12/25/22 00:10 12/25/22 06:00 12/25/22 09:38 Temperature 97.2 F L 96.5 F L Pulse Rate 63 62 Respiratory Rate 18 14 Blood Pressure 110/62 109/72 Pulse Oximetry 93 95 94 Oxygen Delivery Room Air 12/25/22 10:02 Temperature Pulse Rate 64 R
--- NOTE | 2022-12-25 12:45 | PM.CNGS ---
Assessment and Plan Assessment and plan (1) Sacral decubitus ulcer, stage III: Code(s): L89.153 - Pressure ulcer of sacral region, stage 3 Status: Acute Assessment and Plan: Patient has a stage III sacral decubitus ulcer that is fairly clean with minimal devitalized tissue. No signs of an active infection. We would recommend to continue local wound care with silver gel dressing changes. Would expect wound to continue to progress well with wound care and does not require surgical intervention at this time. (2) Wound of left lower extremity: Code(s): S81.802A - Unspecified open wound, left lower leg, initial encounter Status: Acute Assessment and Plan: Wound is clean and continues to heal. Continue local wound care. No indication for surgical intervention. (3) Adult failure to thrive: Code(s): R62.7 - Adult failure to thrive Status: Acute Assessment and Plan: Failure to thrive. Per nursing, found out today that patient is actually Hospice and they are working on placement for discharge. (4) Chronic anticoagulation: Onset Date: ~10/22/22 Code(s): Z79.01 - FPC (current) use of anticoagulants Status: Acute (5) Paroxysmal atrial fibrillation: Code(s): I48.0 - Paroxysmal atrial fibrillation Status: Acute (6) Bedridden: Code(s): Z74.01 - Bed confinement status Status: Acute Plan I have discussed the patient's case and plan of care with Dr. Hinton. History of Present Illness Consult details Consult date: 12/25/22 Reason for consult: wound care (Sacral decubitus ulcer) Requesting physician: Adelfo Payan MD Narrative: This is a 72-year-old man who has been bed ridden at home for at least the past 5 years and has a history of lymphedema, multiple chronic wounds, peripheral vascular disease, atrial fibrillation on anticoagulation, and multiple other medical problems. He has been at home with his and receiving home health care. It has become progressively more difficult to take care of him at home and his brought him into the ER yesterday for placement into a alf facility. He was admitted with failure to thrive. He was also started on IV ceftriaxone for a urinary tract infection. WBC count normal. Wound care was consulted for his multiple wounds and have started silver gel dressing changes. Our service was consulted for surgical evaluation of the sacral decubitus ulcer. He is now seen with no family at the bedside. He is slightly confused when talking to him, but can recall some information. To note, he was seen by our service in September of 2022 for his left lower extremity wound. He had evacuation of a hematoma in a bleeding left lower leg wound with extensive debridement and washout on 10/13/22. Local wound care was continued after surgery. No acute issues of the left lower leg wound. Review of Systems Review of Systems: ROS unobtainable: Yes other (as per HPI, limited due to dementia/confusion) [facility] Past Medical History Medical History Anxiety Arthritis Benign prostatic hyperplasia Bilateral ankle fractures Borderline diabetes Chronic anemia Chronic anticoagulation (~10/22/22) Deep venous thrombosis Dementia Depression Gastroesophageal reflux disease Gout History of peptic ulcer History of pericarditis Hypertension Irritable bowel syndrome Kidney stones Obstructive sleep apnea on CPAP Osteomyelitis Parkinsons disease Paroxysmal atrial fibrillation Peripheral neuropathy Peripheral vascular disease Pneumonia Pulmonary embolism Surgical History Surgical History History of appendectomy History of arthroplasty of left knee History of arthroscopic knee surgery History of cardiac catheterization History of cholecystectomy History of ERCP History of inguinal hernia repair History of left knee r
--- NOTE | 2022-12-25 15:37 | PCPTNOTE ---
Pt is currently on bedrest and active with Hospice. Pt has been bedbound. Skilled therapy not needed at this time.
[2022-12-25] MEDS: TAMSULOSIN HCL 0.4 MG CAPSULE PO (17:09)
[2022-12-25] MEDS: RIVAROXABAN 20 MG TABLET PO (17:09)
[2022-12-25] MEDS: DONEPEZIL HCL 10 MG TABLET PO (20:21)
[2022-12-26 06:00] VITALS: BP 117/68; PULSE 65; RESP 18; TEMP 36.3; O2SAT 93
[2022-12-26] MEDS: NITROFURANTOIN MONOHYD MACROCR 100 MG CAP PO (09:24)
[2022-12-26] MEDS: ESCITALOPRAM OXALATE 10 MG TABLET PO (09:24)
[2022-12-26] MEDS: FOLIC ACID 1 MG TABLET PO (09:24)
[2022-12-26] MEDS: allopurinoL 300 MG TABLET PO (09:24)
[2022-12-26] MEDS: FLECAINIDE ACETATE 50 MG TABLET 150 MG PO (09:24)
[2022-12-26] MEDS: MEMANTINE 5 MG TABLET PO (09:27)
[2022-12-26] MEDS: SILVERGEL (ELTA) 45 ML 1 APPLIC TOPICAL (09:28)
--- NOTE | 2022-12-26 11:31 | PM.DS ---
DS: Admitting Diagnosis Discharge Date December 26, 2022 Admitting Diagnosis Failure to thrive DS: Discharge Diagnosis Discharge Diagnosis (1) Adult failure to thrive: Code(s): R62.7 - Adult failure to thrive Status: Acute Assessment and Plan: admit to regular medical floor PT OT consult supportive care (2) Pressure injury of left buttock, unstageable: Code(s): L89.320 - Pressure ulcer of left buttock, unstageable Status: Acute Assessment and Plan: around the clock turning schedule wound ET consult (3) Pressure injury of left leg, stage 2: Code(s): L89.892 - Pressure ulcer of other site, stage 2 Status: Acute Assessment and Plan: round the clock turning schedule wound care consult (4) Urinary tract infection: Code(s): N39.0 - Urinary tract infection, site not specified Status: Acute Assessment and Plan: started on Rocephin await cultures (5) Generalized weakness: Code(s): R53.1 - Weakness Status: Acute Assessment and Plan: likely secondary to chronic illness and deconditioning in the setting of acute urinary tract infection (6) AF (paroxysmal atrial fibrillation): Code(s): I48.0 - Paroxysmal atrial fibrillation Status: Acute Assessment and Plan: rate controlled anticoagulated (7) Morbid obesity: Code(s): E66.01 - Morbid (severe) obesity due to excess calories Status: Acute Assessment and Plan: calorie restricted diet (8) Chronic venous stasis dermatitis of both lower extremities: Code(s): I87.2 - Venous insufficiency (chronic) (peripheral) Status: Acute Assessment and Plan: compression stockings DS: Summary Hospital Course Hospital Course: Admitted for failure to thrive, is no longer able to take care of him. Patient is on hospice. He will be sent back to the facility hospice. Time Spent with Patient Time attestation: Total time spent providing and/or coordinating discharge services: Exam Narrative: patient is sitting in a stretcher Const: General: comfortable, no acute distress, well developed, alert, awake and average body habitus Nutritional Appearance: average body habitus Orientation/consciousness: Other orientation findings ( pleasantly demented) HENMT: Head: normal to inspection, normocephalic and atraumatic Ears: hearing grossly normal bilaterally Face/Nose/Sinus: normal facial exam Face and sinus: normal facial exam Eyes: General: appearance normal, both eyes and all related structures Pupils: Equal, round and reactive pupils present EOM: EOMs intact bilaterally Neck: Neck: full ROM, no lymphadenopathy and no JVD Thyroid: thyroid normal Lymphatic: no lymphadenopathy noted Resp: Effort & Inspection: normal respiratory effort and able to speak in complete sentences Auscultation: clear to auscultation bilaterally Cardio: Jugular venous distension: no JVD Rate: regular rate Rhythm: regular rhythm Heart sounds: S1 normal heart sound present and S2 normal heart sound present : General: Yes deferred Skin: Rashes: no rashes Wounds: no wounds Neuro: General: CN's II-XI intact bilaterally, Unable to assess gait and other ( dementia) Cranial nerves: Yes CN's II-XII intact bilaterally and Yes Equal, round and reactive pupils present Cognition (Neuro): abnormal cognition ( dementia) Speech: Other speech findings present (Neuro) ( dementia) Gait exam (Neuro): Unable to assess gait Motor exam (neuro): Motor abnormalities not present and Other motor observations present ( bed ridden) Extrem: General: edema bilateral (4+) Left lower extremity: lower leg Details: other ( wound) Psych: Appearance: grossly normal DS: Data Data Completed and Pending Labs on day of discharge: Preliminary micro results at discharge 12/24/22 20:56 Urine Culture - Preliminary Urine Catheterized Gram negative bacilli isolated
== END 2022-12-26 14:00 | disposition hospice, inpatient (51) | DRG 640 ==
LOC: ANHED 22:41 → ANH3MEDSUR 23:06
PROVIDERS: Admitting Provider Internal Medicine; Emergency Provider Student in an Organized Health Care Education/Training Program; PCP Nurse Practitioner Family; Visit Provider Chiropractor
DX: R62.7 Adult failure to thrive (principal); L89.153 Pressure ulcer of sacral region, stage 3; N39.0 Urinary tract infection, site not specified; L89.892 Pressure ulcer of other site, stage 2; Z51.5 Encounter for palliative care; E66.01 Morbid (severe) obesity due to excess calories; Z68.38 Body mass index [BMI] 38.0-38.9, adult; I48.0 Paroxysmal atrial fibrillation; N40.0 Benign prostatic hyperplasia without lower urinary tract symptoms; F03.90 Unspecified dementia, unspecified severity, without behavioral disturbance, psychotic disturbance, mood disturbance, and anxiety; K21.9 Gastro-esophageal reflux disease without esophagitis; G47.33 Obstructive sleep apnea (adult) (pediatric); I73.9 Peripheral vascular disease, unspecified; G62.9 Polyneuropathy, unspecified; I87.2 Venous insufficiency (chronic) (peripheral); I10 Essential (primary) hypertension; G20 Parkinson's disease; E87.6 Hypokalemia; K58.9 Irritable bowel syndrome, unspecified; D64.9 Anemia, unspecified; F41.9 Anxiety disorder, unspecified; M19.90 Unspecified osteoarthritis, unspecified site; Z96.652 Presence of left artificial knee joint; Z79.01 Long term (current) use of anticoagulants; Z74.01 Bed confinement status; Z86.718 Personal history of other venous thrombosis and embolism; Z87.11 Personal history of peptic ulcer disease; Z86.711 Personal history of pulmonary embolism; Z90.5 Acquired absence of kidney
CPT/HCPCS: 36415; 80048; 80053; 81001; 83735; 84443; 85025; 85610; 85730; 86140; 87077; 87086; 87186; 93005; 99285; A9270; J0696

== ENCOUNTER 2023-01-20 14:11 | Emergency (ER) | payer OTHER, MEDICARE, SELFPAY ==
[2023-01-20 14:13] VITALS: BP 101/73; PULSE 50; RESP 16; TEMP 36.3; O2SAT 96
--- NOTE | 2023-01-20 15:32 | ED.WOUNDLAC ---
HPI - Wound/Laceration General Chief Complaint: Wound/Laceration Stated Complaint: bleeding to calf, B/L LE cellulitis Time Seen by Provider: 01/20/23 14:29 History of Present Illness HPI narrative: Patient is a 72-year-old male presenting with a wound to his left leg. Patient is a hospice patient and resides at a nursing facility. He states that he has chronic swelling in both of his legs. He was noted to have a laceration on his left lower leg today so he was brought in for evaluation. His only complaint is that his left eye hurts. States that its been hurting since yesterday. He denies further complaints. Related Data Home Medications Medication Instructions Recorded Confirmed acetaminophen 500 mg tablet 500 mg PO Q6H PRN Pain 09/28/19 12/25/22 donepezil 10 mg tablet 10 mg PO HS 04/03/21 12/25/22 escitalopram oxalate 10 mg tablet 10 mg PO DAILY 10/09/22 12/25/22 folic acid 1 mg tablet 1 mg PO DAILY 10/09/22 12/25/22 memantine 5 mg tablet 5 mg PO BID 10/09/22 12/25/22 potassium chloride 20 mEq 20 meq PO 3XW 10/09/22 12/25/22 tablet,extended release rivaroxaban 20 mg tablet (Xarelto) 20 mg PO .ALPA 10/09/22 12/25/22 Allergies Allergy/AdvReac Type Severity Reaction Status Date / Time ampicillin Allergy Unknown Hives Verified 01/20/23 14:46 iodine Allergy Unknown Hives Verified 01/20/23 14:46 Penicillins Allergy Unknown Hives Verified 01/20/23 14:46 Contrast Media Allergy Severe hives Uncoded 12/24/22 23:27 Review of Systems Review of Systems: All systems reviewed & are unremarkable except as noted in HPI and below PMFSH Past Medical History Medical History Anxiety Arthritis Benign prostatic hyperplasia Bilateral ankle fractures Borderline diabetes Chronic anemia Chronic anticoagulation (~10/22/22) Deep venous thrombosis Dementia Depression Gastroesophageal reflux disease Gout History of peptic ulcer History of pericarditis Hypertension Irritable bowel syndrome Kidney stones Obstructive sleep apnea on CPAP Osteomyelitis Parkinsons disease Paroxysmal atrial fibrillation Peripheral neuropathy Peripheral vascular disease Pneumonia Pulmonary embolism Surgical History Surgical History History of appendectomy History of arthroplasty of left knee History of arthroscopic knee surgery History of cardiac catheterization History of cholecystectomy History of ERCP History of inguinal hernia repair History of left knee replacement History of left nephrectomy (1956) History of umbilical hernia repair Family History Family History Mother Hypertension, Onset Age: 79 Family history of diabetes mellitus in first degree relative, Onset Age: 79 Family history of arthritis, Onset Age: 79 Family history of congestive heart failure, Onset Age: 79 Sibling Hypertension Carcinoma of colon Father Hypertension, Onset Age: 80 Family history of Parkinson's disease Family history of Alzheimer's disease, Onset Age: 80 Family history of diabetes mellitus in first degree relative, Onset Age: 80 Carcinoma of colon Social History Social History Social History: The patient is and lives with his in [place]. 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 They have 2 children. He is retired from [employer]. Lifelong nonsmoker. No alcohol or illicit substance abuse. His , Araceli Zamora, as his surrogate decision-maker and he wishes to be a DNR. Smoking status: Never smoker Second hand tobacco smoke exposure: No Alcohol intake: never Substance use: never Substance use type: does not use Lack of Transportation: No Lack of Food: Never True Current Housing: I Have Housing Concerned About Future Housing:
[2023-01-20 15:41] VITALS: BP 102/70; PULSE 54; RESP 16; O2SAT 96
[2023-01-20 17:00] VITALS: BP 113/66; PULSE 57; RESP 16; O2SAT 93
[2023-01-20 18:35] VITALS: BP 100/63; PULSE 58; RESP 16; O2SAT 96
--- NOTE | 2023-01-20 19:08 | PC.NURSE ---
Assumed care of pt from JAJA Dee at this time.
[2023-01-20] MEDS: CEPHALEXIN 500 MG CAPSULE PO (19:18)
--- NOTE | 2023-01-20 19:37 | PC.NURSE ---
ATTEMPTED TO CALL REPORT MULTIPLE TIMES TO [facility]. ATTEMPTED TO CALL NURSES STATION 1, 2 AND 3 WITH NO ANSWER. WILL GIVE REPORT TO STAFF WHEN THEY CALL US BACK.
[2023-01-20 20:08] VITALS: BP 104/70; PULSE 59; RESP 16; O2SAT 96
== END 2023-01-20 20:20 | disposition hospice, home (50) ==
PROVIDERS: Emergency Provider Emergency Medicine; PCP Nurse Practitioner Family
DX: S81.812A Laceration without foreign body, left lower leg, initial encounter (principal); I89.0 Lymphedema, not elsewhere classified; F03.90 Unspecified dementia, unspecified severity, without behavioral disturbance, psychotic disturbance, mood disturbance, and anxiety; I48.0 Paroxysmal atrial fibrillation; I73.9 Peripheral vascular disease, unspecified; R73.03 Prediabetes; D64.9 Anemia, unspecified; N40.0 Benign prostatic hyperplasia without lower urinary tract symptoms; M19.90 Unspecified osteoarthritis, unspecified site; K21.9 Gastro-esophageal reflux disease without esophagitis; K58.9 Irritable bowel syndrome, unspecified; G47.33 Obstructive sleep apnea (adult) (pediatric); G20.A1 Parkinson's disease without dyskinesia, without mention of fluctuations; G62.9 Polyneuropathy, unspecified; F32.A Depression, unspecified; F41.9 Anxiety disorder, unspecified; Z66 Do not resuscitate; Z96.653 Presence of artificial knee joint, bilateral; Z87.442 Personal history of urinary calculi; Z86.718 Personal history of other venous thrombosis and embolism; Z86.711 Personal history of pulmonary embolism; Z87.01 Personal history of pneumonia (recurrent); Z90.49 Acquired absence of other specified parts of digestive tract; Z90.5 Acquired absence of kidney; Z79.01 Long term (current) use of anticoagulants; X58.XXXA Exposure to other specified factors, initial encounter
CPT/HCPCS: 99283; A9270